=== PATIENT | male | born 1940 | race Caucasian/White ===

== ENCOUNTER 2017-07-27 09:33 | Inpatient (IN) | payer MEDICARE ==
[2017-07-27] MEDS ORDERED: ALBUTEROL NEBULIZED 2.5 MG/3 ML INHALATION STA (09:48)
[2017-07-27] MEDS ORDERED: methylPREDNISolone SOD SUCCI 125 MG/2 ML VIAL IV STA (09:48)
--- NOTE | 2017-07-27 09:51 | ED ---
General Adult HPI - General Chief complaint: Shortness of Breath Stated complaint: SOB Time Seen by Provider: 07/27/17 09:33 Source: patient, family, RN notes reviewed Mode of arrival: wheelchair Limitations: no limitations - History of Present Illness Initial comments: This is a 76-year-old male with a past medical history significant for congestive heart failure as well as COPD. Patient went to see Dr. Duarte today because his breathing is gotten considerably worse over the last few days and he was sent over from Dr. Garcia's office. Patient states she's had no fever chills. Patient states he has a chronic cough but no worse than normal. Patient states is no sputum production. Patient denies any chest pain or palpitations. Patient denies any abdominal pain patient denies nausea vomiting diarrhea. Patient denies headache patient denies numbness weakness. Patient denies lightheadedness or dizziness. Patient states the difficulty breathing definitely gets worse with exertion. Patient denies any increased edema to the legs. - Related Data Home Medications Medication Instructions Recorded Confirmed Albuterol Inhaler [Ventolin Hfa 1 - 2 puff INHALATION RT-Q4H PRN 07/27/17 Inhaler] Albuterol Nebulized [Ventolin 2.5 mg INHALATION RT-QID 07/27/17 07/27/17 Nebulized] Apixaban [Eliquis] 5 mg PO BID 07/27/17 07/27/17 Aspirin 81 mg PO DAILY 07/27/17 07/27/17 Atenolol [Tenormin] 25 mg PO DAILY 07/27/17 07/27/17 DULoxetine HCL [Cymbalta] 60 mg PO HS 07/27/17 07/27/17 Diltiazem HCl 15 mg PO Q8H 07/27/17 07/27/17 Fenofibrate Nanocrystallized 145 mg PO DAILY 07/27/17 07/27/17 [Tricor] Fluticasone/Vilanterol [Breo 1 puff INHALATION RT-DAILY 07/27/17 07/27/17 Ellipta 200-25 Mcg INH] Furosemide [Lasix] 20 mg PO DAILY 07/27/17 07/27/17 Gabapentin [Neurontin] 600 mg PO BID 07/27/17 07/27/17 Isosorbide Mononitrate ER [Imdur] 30 mg PO DAILY 07/27/17 07/27/17 Lisinopril [Zestril] 2.5 mg PO DAILY 07/27/17 07/27/17 Morphine Sulfate ER [Ms Contin 60 mg PO HS 07/27/17 07/27/17 60Mg] Morphine Sulfate Ir [Msir] 7.5 mg PO HS 07/27/17 07/27/17 Morphine Sulfate Ir [Msir] 7.5 mg PO TID PRN 07/27/17 07/27/17 Tiotropium [place] [Spiriva] 18 mcg INHALATION RT-DAILY 07/27/17 07/27/17 metFORMIN HCL [Glucophage] 1,000 mg PO BID 07/27/17 07/27/17 rOPINIRole HCL [Requip] 0.25 mg PO HS 07/27/17 07/27/17 sitaGLIPtin [Januvia] 50 mg PO DAILY 07/27/17 07/27/17 Allergies Allergy/AdvReac Type Severity Reaction Status Date / Time Penicillins Allergy Rash/Hives Verified 07/27/17 09:51 Review of Systems ROS Statement: Those systems with pertinent positive or pertinent negative responses have been documented in the HPI. ROS Other: All systems not noted in ROS Statement are negative. Past Medical History Past Medical History: Atrial Fibrillation, Heart Failure, COPD, Diabetes Mellitus, Hyperlipidemia, Hypertension, Myocardial Infarction (MS) Additional Past Medical History / Comment(s): PVD History of Any Multi-Drug Resistant Organisms: None Reported Past Surgical History: Hernia Repair, Joint Replacement, Orthopedic Surgery Additional Past Surgical History / Comment(s): stent in leg with bypass Past Psychological History: Anxiety Smoking Status: Current every day smoker Past Alcohol Use History: None Reported Past Drug Use History: None Reported General Exam - General Exam Comments Initial Comments: GENERAL: Patient is well-developed and well-nourished. Patient is nontoxic and well- hydrated and is in mild distress. ENT: Neck is soft and supple. No significant lymphadenopathy is noted. Oropharynx is clear. Moist mucous membranes. Neck has full range of motion without eliciting any pain. EYES: The sclera were anicteric and conjunctiva were pink and moist. Extraocular movements were intact and pupils were equal round and reactive to light. Eyelids were unremarkable. PULMONARY: Patient has diffuse wheezing and diminished breath sounds particularly in the left base. CARDIOVASCULAR: Patient is tachycardic ABDOMEN: Soft and nontender with normal bowel sounds. No palpable organomegaly was noted. There is no palpable pulsatile mass. SKIN: Skin is clear with no lesions or rashes and otherwise unremarkable. NEUROLOGIC: Patient is alert and oriented x3. Cranial nerves II through XII are grossly intact. Motor and sensory are also intact. Normal speech, volume and content. Symmetrical smile. MUSCULOSKELETAL: Normal extremities with adequate strength and full range of motion. Patient has 1+ edema bilaterally LYMPHATICS: No significant lymphadenopathy is noted PSYCHIATRIC: Normal psychiatric evaluation. Normal interpersonal interactions appears functionally intact in deals appropriately with others. No signs of depression. No signs of anxiety. Limitations: no limitations Course Vital Signs 07/27/17 07/27/17 07/27/17 09:35 09:59 10:15 Temperature 97.8 F Pulse Rate 110 H 101 H 105 H Respiratory 20 Rate Blood Pressure 133/87 O2 Sat by Pulse 93 L Oximetry 07/27/17 07/27/17 10:34 11:00 Temperature Pulse Rate 108 H 101 H Respiratory 20 Rate Blood Pressure 148/77 O2 Sat by Pulse 95 Oximetry Medical Decision Making - Medical Decision Making EKG shows atrial fibrillation at 90 bpm QRS is under 4 QT interval 352 QTC is 449. Patient has no ST segment elevation or depression. Chest x-ray shows no acute abnormality. Patient did look as though he might be a little bit fluid overloaded side did give the patient Lasix. Patient received 3 breathing treatments in the emergency department but would desat and continued to wheeze after the treatments. Patient also received Solu-Medrol. I spoke with Dr. Cullen he agreed to admit the patient I admitted the patient I wrote admitting orders I continued today albuterol and steroid on the floor. I also consult Dr. Garcia. - Lab Data Result diagrams: 07/27/17 10:02 07/27/17 10:02 Lab Results 07/27/17 07/27/17 07/27/17 Range/Units 10:02 10:02 10:02 WBC 9.3 (3.8-10.6) k/uL RBC 4.60 (4.30-5.90) m/uL Hgb 14.8 (13.0-17.5) gm/dL Hct 43.5 (39.0-53.0) % MCV 94.6 (80.0-100.0) fL MCH 32.1 (25.0-35.0) pg MCHC 33.9 (31.0-37.0) g/dL RDW 12.9 (11.5-15.5) % Plt Count 298 (150-450) k/uL Neutrophils % 84 % Lymphocytes % 8 % Monocytes % 5 % Eosinophils % 1 % Basophils % 1 % Neutrophils # 7.7 (1.3-7.7) k/uL Lymphocytes # 0.8 L (1.0-4.8) k/uL Monocytes # 0.5 (0-1.0) k/uL Eosinophils # 0.1 (0-0.7) k/uL Basophils # 0.1 (0-0.2) k/uL PT (9.0-12.0) sec INR (<1.2) APTT (22.0-30.0) sec Sodium 140 (137-145) mmol/L Potassium 4.7 (3.5-5.1) mmol/L Chloride 100 (98-107) mmol/L Carbon Dioxide 27 (22-30) mmol/L Anion Gap 13 mmol/L BUN 17 (9-20) mg/dL Creatinine 0.61 L (0.66-1.25) mg/dL Est GFR (CKD-EPI)AfAm >90 (>60 ml/min/1.73 sqM) Est GFR (CKD-EPI)NonAf >90 (>60 ml/min/1.73 sqM) Glucose 222 H (74-99) mg/dL Calcium 9.5 (8.4-10.2) mg/dL Magnesium 1.5 L (1.6-2.3) mg/dL Total Bilirubin 0.4 (0.2-1.3) mg/dL AST 18 (17-59) U/L ALT 24 (21-72) U/L Alkaline Phosphatase 63 (38-126) U/L Total Creatine Kinase 42 L (55-170) U/L CK-MB (CK-2) 2.4 (0.0-2.4) ng/mL CK-MB (CK-2) Rel Index 5.7 Troponin I <0.012 (0.000-0.034) ng/mL NT-Pro-B Natriuret Pep pg/mL Total Protein 6.5 (6.3-8.2) g/dL Albumin 4.0 (3.5-5.0) g/dL 07/27/17 07/27/17 Range/Units 10:02 10:02 WBC (3.8-10.6) k/uL RBC (4.30-5.90) m/uL Hgb (13.0-17.5) gm/dL Hct (39.0-53.0) % MCV (80.0-100.0) fL MCH (25.0-35.0) pg MCHC (31.0-37.0) g/dL RDW (11.5-15.5) % Plt Count (150-450) k/uL Neutrophils % % Lymphocytes % % Monocytes % % Eosinophils % % Basophils % % Neutrophils # (1.3-7.7) k/uL Lymphocytes # (1.0-4.8) k/uL Monocytes # (0-1.0) k/uL Eosinophils # (0-0.7) k/uL Basophils # (0-0.2) k/uL PT 10.4 (9.0-12.0) sec INR 1.1 (<1.2) APTT 24.7 (22.0-30.0) sec Sodium (137-145) mmol/L Potassium (3.5-5.1) mmol/L Chloride (98-107) mmol/L Carbon Dioxide (22-30) mmol/L Anion Gap mmol/L BUN (9-20) mg/dL Creatinine (0.66-1.25) mg/dL Est GFR (CKD-EPI)AfAm (>60 ml/min/1.73 sqM) Est GFR (CKD-EPI)NonAf (>60 ml/min/1.73 sqM) Glucose (74-99) mg/dL Calcium (8.4-10.2) mg/dL Magnesium (1.6-2.3) mg/dL Total Bilirubin (0.2-1.3) mg/dL AST (17-59) U/L ALT (21-72) U/L Alkaline Phosphatase (38-126) U/L Total Creatine Kinase (55-170) U/L CK-MB (CK-2) (0.0-2.4) ng/mL CK-MB (CK-2) Rel Index Troponin I (0.000-0.034) ng/mL NT-Pro-B Natriuret Pep 1250 pg/mL Total Protein (6.3-8.2) g/dL Albumin (3.5-5.0) g/dL Critical Care Time Critical Care Time: Yes Total Critical Care Time: 35 Disposition Clinical Impression: Acute exacerbation of chronic obstructive airways disease Disposition: ADMITTED IP TO THIS HOSP Referrals: Shama Tsang MD [Primary Care Provider] - 1-2 days Time of Disposition: 11:48
[2017-07-27 10:33] LABS: Basophils # (A) 0.1 k/uL (0-0.2); Basophils % (A) 1 %; Eosinophils # (A) 0.1 k/uL (0-0.7); Eosinophils % (A) 1 %; HCT 43.5 % (39.0-53.0); HGB 14.8 gm/dL (13.0-17.5); Lymphocytes # (A) 0.8 k/uL (1.0-4.8); Lymphocytes % (A) 8 %; MCH 32.1 pg (25.0-35.0); MCHC 33.9 g/dL (31.0-37.0); MCV 94.6 fL (80.0-100.0); Mean Platelet Volume 7.5; Monocytes # (A) 0.5 k/uL (0-1.0); Monocytes % (A) 5 %; Neutrophils # (A) 7.7 k/uL (1.3-7.7); Neutrophils % (A) 84 %; Platelet Count 298 k/uL (150-450); RDW 12.9 % (11.5-15.5); WBC 9.3 k/uL (3.8-10.6)
[2017-07-27 10:35] LABS: INR 1.1 (<1.2); Partial Thromboplastin Time 24.7 sec (22.0-30.0); Prothrombin Time 10.4 sec (9.0-12.0)
--- NOTE | 2017-07-27 10:36 | XR ---
EXAMINATION TYPE: XR chest 1V DATE OF EXAM: 07/27/2017 COMPARISON: NONE HISTORY: Increasing shortness of breath TECHNIQUE: Single AP portable frontal upright view of the chest is obtained. FINDINGS: There is reticular interstitial prominence without suspicious focal air space opacity, ple ural effusion, or pneumothorax seen. The cardiac silhouette size is mildly enlarged with atheroscler otic aorta. Metallic hardware from right shoulder surgery is partially imaged. IMPRESSION: Suspect chronic interstitial fibrosis, component of acute interstitial edema difficult t o exclude. Background mild cardiomegaly noted. No suspicious focal infiltrate is present.
[2017-07-27 10:40] LABS: ALT 24 U/L (21-72); AST 18 U/L (17-59); Alkaline Phosphatase 63 U/L (38-126); Anion Gap 13 mmol/L; Blood Urea Nitrogen 17 mg/dL (9-20); Calcium 9.5 mg/dL (8.4-10.2); Carbon Dioxide 27 mmol/L (22-30); Chloride 100 mmol/L (98-107); Glucose 222 mg/dL (74-99); Magnesium 1.5 mg/dL (1.6-2.3); Potassium 4.7 mmol/L (3.5-5.1); Sodium 140 mmol/L (137-145); Total Bilirubin 0.4 mg/dL (0.2-1.3); Total Protein 6.5 g/dL (6.3-8.2)
[2017-07-27 11:00] LABS: Creatine Kinase 42 U/L (55-170)
[2017-07-27 11:11] LABS: Creatine Kinase MB 2.4 ng/mL (0.0-2.4); Troponin I <0.012 ng/mL (0.000-0.034)
[2017-07-27] MEDS ORDERED: FUROSEMIDE 10 MG/ML 2 ML VIAL IV ONE (11:37)
[2017-07-27] MEDS ORDERED: IPRATROPIUM-ALBUTEROL 3 ML NEB INHALATION PRN (11:49)
[2017-07-27] MEDS: IPRATROPIUM-ALBUTEROL 3 ML NEB INHALATION SCH ×3 (13:22→21:25)
[2017-07-27] MEDS: methylPREDNISolone SOD SUCCI 125 MG/2 ML VIAL IV SCH ×3 (13:22→22:43)
[2017-07-27] MEDS ORDERED: MORPHINE SULFATE IR 15 MG TABLET PO PRN (14:37)
[2017-07-27] MEDS ORDERED: FUROSEMIDE 10 MG/ML 4 ML VIAL IV STA (14:37)
--- NOTE | 2017-07-27 15:23 | P.CNPUL ---
History of Present Illness Consult date: 07/27/17 Reason for consult: dyspnea, COPD History of present illness: A pleasant 76-year-old male patient with known history of COPD with a baseline FEV1 of 59% of predicted, was had multiple hospitalizations the past for COPD exacerbation. The patient was being seen by Dr. Grier today in the office. He was felt to have worsening shortness of breath and this has been progressively getting worse over the past week or so. He has also gained around 6 pounds over the past few weeks. For that reason he was admitted to the hospital for treatment of an acute COPD exacerbation. No chest pain. No pleurisy. No hemoptysis. The patient has been maintained on a combination of Breo ellipta and Spiriva on outpatient basis. He has had several hospitalizations last year at [facility] for the same. His current chest x-ray showing some mild congestion. No clear S3 disease or pneumonia. No edema in lower extremities. Review of Systems Constitutional: Reports daytime sleepiness, Reports fatigue Eyes: denies blurred vision, denies bulging eye, denies decreased vision Ears: deny: decreased hearing, ear discharge, earache Ears, nose, mouth and throat: Reports as per HPI Cardiovascular: Reports decreased exercise tolerance, Reports dyspnea on exertion, Reports shortness of breath Respiratory: Reports dyspnea, Reports wheezing Gastrointestinal: Denies abdominal pain, Denies diarrhea, Denies nausea, Denies vomiting Genitourinary: Reports as per HPI Musculoskeletal: Denies myalgias Musculoskeletal: absent: ankle pain, ankle stiffness, ankle swelling Integumentary: Denies pruritus, Denies rash Neurological: Reports weakness Psychiatric: Denies anxiety, Denies depression Endocrine: Denies fatigue, Denies weight change Hematologic/Lymphatic: Reports as per HPI Allergic/Immunologic: Reports as per HPI Past Medical History Past Medical History: Atrial Fibrillation, Heart Failure, COPD, Diabetes Mellitus, Hyperlipidemia, Hypertension, Myocardial Infarction (PR), Vascular Disorder Additional Past Medical History / Comment(s): COPD severe in nature, coronary artery disease with previous coronary stenting and previous myocardial infarction, [id number] diabetes mellitus type 2, peripheral neuropathy, peripheral vascular disease with previous stenting of the left lower extremity and previous vascular surgery in the right leg, frequent falls, previous history of sores in the lower extremity in the heels, chronic hypoxic respiratory failure maintained on oxygen at 2 L/m nasal cannula, restless leg syndrome, chronic back pain, abdominal wall hernia, bilateral cataracts, hyperlipidemia, hypertension, diabetes mellitus Last Myocardial Infarction Date:: unkn History of Any Multi-Drug Resistant Organisms: None Reported Past Surgical History: Hernia Repair, Joint Replacement, Orthopedic Surgery Additional Past Surgical History / Comment(s): Cardiac catheterization with coronary stenting, back surgery, appendectomy, hernia repair, left total hip replacement, right shoulder replacement, right rotator cuff repair, TURP, left lower extremity angioplasty and stenting for peripheral vascular disease, previous colonoscopies Past Anesthesia/Blood Transfusion Reactions: No Reported Reaction Smoking Status: Current every day smoker ([id number] smoking history and the patient is still smoking around half pack of cigarettes a day. No history of alcoholism. Most of IV drugs) - Past Family History Father Family Medical History: Myocardial Infarction (PR) Additional Family Medical History / Comment(s): Father of a PR at the age of 62 yrs. Mother Additional Family Medical History / Comment(s): Mother was a heavy smoker. Medications and Allergies Home Medications Medication Instructions Recorded Confirmed Type Albuterol Inhaler [Ventolin Hfa 1 - 2 puff INHALATION RT-Q4H PRN 07/27/17 History Inhaler] Albuterol Nebulized [Ventolin 2.5 mg INHALATION RT-QID 07/27/17 07/27/17 History Nebulized] Apixaban [Eliquis] 5 mg PO BID 07/27/17 07/27/17 History Aspirin 81 mg PO DAILY 07/27/17 07/27/17 History Atenolol [Tenormin] 25 mg PO DAILY 07/27/17 07/27/17 History DULoxetine HCL [Cymbalta] 60 mg PO HS 07/27/17 07/27/17 History Diltiazem HCl 15 mg PO Q8H 07/27/17 07/27/17 History Fenofibrate Nanocrystallized 145 mg PO DAILY 07/27/17 07/27/17 History [Tricor] Fluticasone/Vilanterol [Breo 1 puff INHALATION RT-DAILY 07/27/17 07/27/17 History Ellipta 200-25 Mcg INH] Furosemide [Lasix] 20 mg PO DAILY 07/27/17 07/27/17 History Gabapentin [Neurontin] 600 mg PO BID 07/27/17 07/27/17 History Isosorbide Mononitrate ER [Imdur] 30 mg PO DAILY 07/27/17 07/27/17 History Lisinopril [Zestril] 2.5 mg PO DAILY 07/27/17 07/27/17 History Morphine Sulfate ER [Ms Contin 60 mg PO HS 07/27/17 07/27/17 History 60Mg] Morphine Sulfate Ir [Msir] 7.5 mg PO HS 07/27/17 07/27/17 History Morphine Sulfate Ir [Msir] 7.5 mg PO TID PRN 07/27/17 07/27/17 History Tiotropium [place] [Spiriva] 18 mcg INHALATION RT-DAILY 07/27/17 07/27/17 History metFORMIN HCL [Glucophage] 1,000 mg PO BID 07/27/17 07/27/17 History rOPINIRole HCL [Requip] 0.25 mg PO HS 07/27/17 07/27/17 History sitaGLIPtin [Januvia] 50 mg PO DAILY 07/27/17 07/27/17 History Allergies Allergy/AdvReac Type Severity Reaction Status Date / Time Penicillins Allergy Rash/Hives Verified 07/27/17 09:51 Physical Exam Vitals: Vital Signs Temp Pulse Pulse Resp BP BP Pulse Ox 07/27/17 13:10 98.0 F 75 16 107/68 92 L 07/27/17 11:57 83 18 120/63 93 L 07/27/17 11:00 101 H 20 148/77 95 07/27/17 10:34 108 H 07/27/17 10:15 105 H 07/27/17 09:59 101 H 07/27/17 09:35 97.8 F 110 H 20 133/87 93 L Intake and Output 07/27/17 07/27/17 07/27/17 06:59 14:59 22:59 Output Total 650 Balance -650 Output: Urine 650 Other: Weight 107.048 kg Obese, comfortable likely distress Head exam was generally normal. There was no scleral icterus or corneal arcus. Mucous membranes were moist. Neck was supple and without jugular venous distension, thyromegaly, or carotid bruits. Carotids were easily palpable bilaterally. There was no adenopathy. The patient has significant crowding of the posterior oropharynx and the patient is a Mallampati class IV Lung sounds are diminished bilaterally along with scattered expiratory wheezes and diffuse expiratory wheezes throughout the lung kraft bilaterally Cardiac exam revealed the PMI to be normally situated and sized. The rhythm was regular and no extrasystoles were noted during several minutes of auscultation. The first and second heart sounds were normal and physiologic splitting of the second heart sound was noted. There were no murmurs, rubs, clicks, or gallops. Abdominal exam revealed normal bowel sounds. The abdomen was soft, non-tender, and without masses, organomegaly, or appreciable enlargement of the abdominal aorta. Overall the patient is obese and there is no organomegaly appreciated Examination of the extremities revealed easily palpable radial, femoral and pedal pulses. There was no cyanosis, clubbing or edema. There are changes related to peripheral neuropathy. No open wounds or sores Examination of the skin revealed no evidence of significant rashes, suspicious appearing nevi or other concerning lesions. Neurologically the patient is awake and alert and there is no focal neurological deficit Psychiatrically the patient has normal mood and affect Results - Laboratory Findings CBC and BMP: 07/27/17 10:02 07/27/17 10:02 PT/INR, D-dimer PT 10.4 sec (9.0-12.0) 07/27/17 10:02 INR 1.1 (<1.2) 07/27/17 10:02 Abnormal lab findings: Abnormal Labs 07/27/17 07/27/17 07/27/17 10:02 10:02 10:02 Lymphocytes # 0.8 L Creatinine 0.61 L Glucose 222 H Magnesium 1.5 L Total Creatine Kinase 42 L - Diagnostic Findings Chest x-ray: image reviewed Assessment and Plan Plan: Assessment 1 acute COPD exacerbation with secondary shortness of breath. Cannot exclude the possibility of an underlying CHF contributing to shortness of breath 2 moderate to severe COPD with a baseline FEV1 of 59% of predicted 3 obesity with a BMI of 32 4 suspected obstructive sleep apnea with poor sleep quality and poor ability to maintain sleep and frequent nocturnal arousals and chronic hypersomnia 5 peripheral neuropathy 6 peripheral vascular disease 7 hypertension 8 hyperlipidemia 9 diabetes mellitus Plan Continue DuoNeb nebulized treatments around the clock. IV Lasix 40 mg IV push 1 and resume oral Lasix 20 mg on a daily basis. IV Solu-Medrol. Monitor blood sugar and use insulin if needed in the form of a drip should the blood sugars remain above 300. Review the chest x-ray. Smoking cessation counseling. We' ll continue to follow. Outpatient sleep study once the patient is fully recovered as the patient has a high suspicion for an underlying obstructive sleep apnea syndrome.
[2017-07-27] MEDS: ATENOLOL 25 MG TAB PO SCH (15:59)
[2017-07-27] MEDS: DILTIAZEM ORAL 30 MG TAB PO SCH ×2 (16:00→22:50)
[2017-07-27] MEDS: FENOFIBRATE 160 MG TAB PO SCH (16:00)
[2017-07-27 17:28] LABS: Glucose,Whole Blood 272 mg/dL (75-99)
--- NOTE | 2017-07-27 17:35 | P.HPIM ---
History of Present Illness This is a pleasant 76 years old male with past medical history of A. fib, CHF, COPD oxygen dependent at home, DM, hyperlipidemia, hypertension, PVD, status post stent, peripheral neuropathy who presents to his doctor office with dyspnea is Dr. Grier send him to the emergency room for COPD exacerbation Patient complaining of from cough and yellowish phlegm of 2 weeks duration, shortness of breath was progressively worsening over several weeks Patient denies dizziness or chest pain or leg pain, he denies Wilson I nocturnal dyspnea Review of Systems 14 point system review were negative except was mentioned in HPI Past Medical History Past Medical History: Atrial Fibrillation, Heart Failure, COPD, Diabetes Mellitus, Hyperlipidemia, Hypertension, Myocardial Infarction (DC), Vascular Disorder Additional Past Medical History / Comment(s): COPD severe in nature, coronary artery disease with previous coronary stenting and previous myocardial infarction, [id number] diabetes mellitus type 2, peripheral neuropathy, peripheral vascular disease with previous stenting of the left lower extremity and previous vascular surgery in the right leg, frequent falls, previous history of sores in the lower extremity in the heels, chronic hypoxic respiratory failure maintained on oxygen at 2 L/m nasal cannula, restless leg syndrome, chronic back pain, abdominal wall hernia, bilateral cataracts, hyperlipidemia, hypertension, diabetes mellitus Last Myocardial Infarction Date:: unkn History of Any Multi-Drug Resistant Organisms: None Reported Past Surgical History: Hernia Repair, Joint Replacement, Orthopedic Surgery Additional Past Surgical History / Comment(s): Cardiac catheterization with coronary stenting, back surgery, appendectomy, hernia repair, left total hip replacement, right shoulder replacement, right rotator cuff repair, TURP, left lower extremity angioplasty and stenting for peripheral vascular disease, previous colonoscopies Past Anesthesia/Blood Transfusion Reactions: No Reported Reaction Smoking Status: Current every day smoker ([id number] smoking history and the patient is still smoking around half pack of cigarettes a day. No history of alcoholism. Most of IV drugs) - Past Family History Father Family Medical History: Myocardial Infarction (DC) Additional Family Medical History / Comment(s): Father of a DC at the age of 62 yrs. Mother Additional Family Medical History / Comment(s): Mother was a heavy smoker. Medications and Allergies Home Medications Medication Instructions Recorded Confirmed Type Albuterol Inhaler [Ventolin Hfa 1 - 2 puff INHALATION RT-Q4H PRN 07/27/17 History Inhaler] Albuterol Nebulized [Ventolin 2.5 mg INHALATION RT-QID 07/27/17 07/27/17 History Nebulized] Apixaban [Eliquis] 5 mg PO BID 07/27/17 07/27/17 History Aspirin 81 mg PO DAILY 07/27/17 07/27/17 History Atenolol [Tenormin] 25 mg PO DAILY 07/27/17 07/27/17 History DULoxetine HCL [Cymbalta] 60 mg PO HS 07/27/17 07/27/17 History Diltiazem HCl 15 mg PO Q8H 07/27/17 07/27/17 History Fenofibrate Nanocrystallized 145 mg PO DAILY 07/27/17 07/27/17 History [Tricor] Fluticasone/Vilanterol [Breo 1 puff INHALATION RT-DAILY 07/27/17 07/27/17 History Ellipta 200-25 Mcg INH] Furosemide [Lasix] 20 mg PO DAILY 07/27/17 07/27/17 History Gabapentin [Neurontin] 600 mg PO BID 07/27/17 07/27/17 History Isosorbide Mononitrate ER [Imdur] 30 mg PO DAILY 07/27/17 07/27/17 History Lisinopril [Zestril] 2.5 mg PO DAILY 07/27/17 07/27/17 History Morphine Sulfate ER [Ms Contin 60 mg PO HS 07/27/17 07/27/17 History 60Mg] Morphine Sulfate Ir [Msir] 7.5 mg PO HS 07/27/17 07/27/17 History Morphine Sulfate Ir [Msir] 7.5 mg PO TID PRN 07/27/17 07/27/17 History Tiotropium [place] [Spiriva] 18 mcg INHALATION RT-DAILY 07/27/17 07/27/17 History metFORMIN HCL [Glucophage] 1,000 mg PO BID 07/27/17 07/27/17 History rOPINIRole HCL [Requip] 0.25 mg PO HS 07/27/17 07/27/17 History sitaGLIPtin [Januvia] 50 mg PO DAILY 07/27/17 07/27/17 History Allergies Allergy/AdvReac Type Severity Reaction Status Date / Time Penicillins Allergy Rash/Hives Verified 07/27/17 09:51 Physical Exam Vitals: Vital Signs Temp Pulse Pulse Resp BP BP Pulse Ox 07/27/17 17:09 104 H 07/27/17 13:10 98.0 F 75 16 107/68 92 L 07/27/17 11:57 83 18 120/63 93 L 07/27/17 11:00 101 H 20 148/77 95 07/27/17 10:34 108 H 07/27/17 10:15 105 H 07/27/17 09:59 101 H 07/27/17 09:35 97.8 F 110 H 20 133/87 93 L Intake and Output 07/27/17 07/27/17 07/27/17 06:59 14:59 22:59 Output Total 650 Balance -650 Output: Urine 650 Other: Weight 107.048 kg Constitutional: No acute distress, conversant, pleasant Eyes: Anicteric sclerae, moist conjunctiva, no lid-lag PERRLA ENMT: NC/AT Oropharynx clear, no erythema, exudates Neck: Supple, FROM, no masses, or JVD No carotid bruits No thyromegaly -Lungs: Clear to auscultation, bilateral scattered wheezing Clear to percussion Normal respiratory effort, no accessory muscle use Cardiovascular: Heart regular in rate and rhythm, No murmurs, gallops, or rubs No peripheral edema Abdominal: Soft Nontender, no guarding, rebound or rigidity Abdomen moving with respiration Normoactive bowel sounds No hepatomegaly, No splenomegaly No palpable mass No abdominal wall hernia noted Skin: Normal temperature, tone, texture, turgor No induration No subcutaneous nodules No rash, lesions No ulcers Extremities: No digital cyanosis No clubbing Pedal pulses intact and symmetrical Radial pulses intact and symmetrical Normal gait and station No calf tenderness Psychiatric: Alert and oriented to person, place and time Appropriate affect Intact judgement Neuro: Muscles Strength 5/5 in all 4 extremities Sensation to light touch grossly present throughout Cranial nerves II-XII grossly intact No focal sensory deficits Results CBC & Chem 7: 07/27/17 10:02 07/27/17 10:02 Labs: Abnormal Lab Results - Last 24 Hours (Table) 07/27/17 07/27/17 07/27/17 Range/Units 10:02 10:02 10:02 Lymphocytes # 0.8 L (1.0-4.8) k/uL Creatinine 0.61 L (0.66-1.25) mg/dL Glucose 222 H (74-99) mg/dL Magnesium 1.5 L (1.6-2.3) mg/dL Total Creatine Kinase 42 L (55-170) U/L Thrombosis Risk Factor Assmnt - Choose All That Apply Any of the Below Risk Factors Present?: Yes Each Factor Represents 1 point: Abnormal pulmonary function (COPD), Obesity ( BMI >25) Other Risk Factors: Yes Each Risk Factor Represents 3 Points: Age 75 years or older Other congenital or acquired thrombophilia - If yes, enter type in comment: No Thrombosis Risk Factor Assessment Total Risk Factor Score: 5 Thrombosis Risk Factor Assessment Level: High Risk Assessment and Plan Plan: -COPD exacerbation, pulmonary consultation is appreciated, continue with steroids, breathing treatments and oxygen, and antibiotics patient also got 1 dose of extra Lasix -CHF, continue with Lasix, check proBNP -DM continue with Januvia, metformin, ISS -Hypertension continue with atenolol 25 mg daily and Cardizem 15 mg every 8 hours plus lisinopril 2.5 mg daily -A. fib, continue with the Eliquis, aspirin, and atenolol -Diabetic neuropathy continue with gabapentin
[2017-07-27] MEDS: metFORMIN 500 MG TAB PO SCH (18:04)
[2017-07-27 20:06] LABS: Glucose,Whole Blood 334 mg/dL (75-99)
[2017-07-27] MEDS: DULoxetine HCL 60 MG CAPSULE.DR PO SCH (21:06)
[2017-07-27] MEDS: GABAPENTIN 300 MG CAP PO SCH (21:06)
[2017-07-27] MEDS: MORPHINE SULFATE ER 60 MG TABLET PO SCH (21:06)
[2017-07-27] MEDS: APIXABAN 5 MG TAB PO SCH (21:06)
[2017-07-27] MEDS: DOXYCYCLINE MONOHYDRATE 100 MG CAPSULE PO SCH (21:08)
[2017-07-27] MEDS: MORPHINE SULFATE IR 15 MG TABLET PO SCH (21:08)
[2017-07-27] MEDS: INSULIN ASPART 100 UNIT/ML 1 ML 10 ML VIAL SQ SCH (22:37)
[2017-07-28] MEDS: IPRATROPIUM-ALBUTEROL 3 ML NEB INHALATION SCH ×6 (00:58→19:29)
[2017-07-28] MEDS: methylPREDNISolone SOD SUCCI 125 MG/2 ML VIAL IV SCH ×4 (04:58→23:29)
[2017-07-28 07:02] LABS: Glucose,Whole Blood 312 mg/dL (75-99)
[2017-07-28 07:48] LABS: Basophils % (A) 0 %; Eosinophils % (A) 0 %; HCT 43.7 % (39.0-53.0); HGB 14.5 gm/dL (13.0-17.5); Lymphocytes # (A) 0.6 k/uL (1.0-4.8); Lymphocytes % (A) 5 %; MCH 31.7 pg (25.0-35.0); MCHC 33.3 g/dL (31.0-37.0); MCV 95.2 fL (80.0-100.0); Mean Platelet Volume 8.1; Monocytes # (A) 0.2 k/uL (0-1.0); Monocytes % (A) 2 %; Neutrophils # (A) 10.7 k/uL (1.3-7.7); Neutrophils % (A) 93 %; Platelet Count 339 k/uL (150-450); RBC 4.59 m/uL (4.30-5.90); RDW 12.8 % (11.5-15.5); WBC 11.5 k/uL (3.8-10.6)
[2017-07-28] MEDS: INSULIN ASPART 100 UNIT/ML 1 ML 10 ML VIAL SQ SCH ×4 (07:52→20:51)
[2017-07-28] MEDS: ATENOLOL 25 MG TAB PO SCH (07:53)
[2017-07-28] MEDS: metFORMIN 500 MG TAB PO SCH ×2 (07:53→17:25)
[2017-07-28] MEDS: ISOSORBIDE MONONITRATE ER 30 MG TAB.ER.24H PO SCH (07:53)
[2017-07-28] MEDS: ASPIRIN 81 MG PO SCH (07:53)
[2017-07-28] MEDS: GABAPENTIN 300 MG CAP PO SCH ×2 (07:53→20:51)
[2017-07-28] MEDS: FUROSEMIDE 20 MG TAB PO SCH (07:53)
[2017-07-28] MEDS: APIXABAN 5 MG TAB PO SCH ×2 (07:53→20:51)
[2017-07-28] MEDS: DOXYCYCLINE MONOHYDRATE 100 MG CAPSULE PO SCH ×2 (07:53→20:51)
[2017-07-28] MEDS: FENOFIBRATE 160 MG TAB PO SCH (07:53)
[2017-07-28] MEDS: LINAGLIPTIN 5 MG TABLET PO SCH (07:54)
[2017-07-28] MEDS: LISINOPRIL 2.5 MG TAB PO SCH (07:54)
[2017-07-28] MEDS: DILTIAZEM ORAL 30 MG TAB PO SCH ×3 (07:54→23:31)
[2017-07-28 08:13] LABS: Anion Gap 16 mmol/L; Blood Urea Nitrogen 30 mg/dL (9-20); Calcium 9.5 mg/dL (8.4-10.2); Carbon Dioxide 29 mmol/L (22-30); Chloride 94 mmol/L (98-107); Glucose 261 mg/dL (74-99); Potassium 4.8 mmol/L (3.5-5.1); Sodium 139 mmol/L (137-145)
[2017-07-28 11:08] LABS: Glucose,Whole Blood 238 mg/dL (75-99)
--- NOTE | 2017-07-28 13:17 | CDI ---
Last Revision, February 2017 Documentation Clarification Form Date: 07/28/17 1312 From: Emily Harrell RN, CCDS Admit Date: 07/27/2017 11:49:00 AM Patient Name: Steffen Ruth Visit Number: [id number] ATTENTION: The Clinical Documentation Specialists (CDI) and [facility] Coding Staff appreciate your assistance in clarifying documentation. Please respond to the clarification below the line at the bottom and electronically sign. The CDI & [facility] Coding staff will review the response and follow-up if needed. Please note: Queries are made part of the Legal Health Record. If you have any questions, please contact the author of this message via ITS. Dr. Mayes E Sheet History/Risk Factors: A-Fib, COPD with Home O2 dependence, DM, HTN Clinical Indicators: VS/Pulse OX: Temp 97.8, hr 110, RR 20, B/P 133/87, spo2 93% 3l NC BNP: 1250 / 2210 Echocardiogram Results: no old echo available, an there is not one ordered Chest X Ray: "chronic interstitial fibrosis, component of acute interstitial edema difficult to exclude. Background mild cardiomegaly noted." Treatment: Lasix 20 mg IVP x1 followed by Lasix 40 ivp x1, followed by Lasix 20 mg PO QD In your professional opinion, can you please clarify the acuity and type of CHF if known? Systolic Heart Failure: Acute Chronic Acute on Chronic Diastolic Heart Failure: Acute Chronic Acute on Chronic Systolic & Diastolic Heart Failure: Acute Chronic Acute on Chronic Heart Failure Unable to Determine Other, please specify Please continue to document in your progress notes and discharge summary in order to capture severity of illness and risk of mortality. Include clinical findings that support your diagnosis. chronic systolic CHF MTDD
--- NOTE | 2017-07-28 14:53 | P.PN ---
<Nicky Lopez M - Last Filed: 07/28/17 14:42> Subjective Progress Note Date: 07/28/17 Principal diagnosis: Acute COPD exacerbation with secondary shortness of breath and acute congestive heart failure, unspecified A pleasant 76-year-old male patient with known history of COPD with a baseline FEV1 of 59% of predicted, was had multiple hospitalizations the past for COPD exacerbation. The patient was being seen by Dr. Grier today in the office. He was felt to have worsening shortness of breath and this has been progressively getting worse over the past week or so. He has also gained around 6 pounds over the past few weeks. For that reason he was admitted to the hospital for treatment of an acute COPD exacerbation. No chest pain. No pleurisy. No hemoptysis. The patient has been maintained on a combination of Breo ellipta and Spiriva on outpatient basis. He has had several hospitalizations last year at [facility] for the same. His current chest x-ray showing some mild congestion. No clear S3 disease or pneumonia. No edema in lower extremities. On 07/28/2017 patient seen in follow-up. He is breathing easier today, currently on 2 L per nasal cannula with O2 sat at 92%. Vital signs are stable, patient is slightly tachycardic at times with a heart rate up to 112 BPM. Yesterday patient was given a dose of IV Lasix, and he is in -1800 mL fluid balance over the last 24 hours, and his weight is down by 1 kg next 24 hours. Patient states he was able to get up and walk, and tolerated reasonably well. Lung sounds are positive for a few scattered wheezes, no rales, no rhonchi noted on today's exam. Patient is improving, and has responded well to IV steroids, IV diuretics, nebulized bronchodilators and empiric antibiotics. Increase activity as tolerated, wean FiO2. We will obtain 2-D echocardiogram to assess left ventricle systolic function. Objective - Vital Signs Vital signs: Vital Signs Temp 97.3 F L 07/28/17 07:28 Pulse 110 H 07/28/17 11:27 Resp 18 07/28/17 11:27 BP 119/62 07/28/17 07:28 Pulse Ox 92 L 07/28/17 11:17 Intake & Output 07/27/17 07/28/17 07/28/17 18:59 06:59 18:59 Output Total 2450 Balance -2450 Weight 107.048 kg 106 kg Output: Urine 2450 Other: # Voids 1 - Exam Obese, comfortable likely distress Head exam was generally normal. There was no scleral icterus or corneal arcus. Mucous membranes were moist. Neck was supple and without jugular venous distension, thyromegaly, or carotid bruits. Carotids were easily palpable bilaterally. There was no adenopathy. The patient has significant crowding of the posterior oropharynx and the patient is a Mallampati class IV Lung sounds are diminished bilaterally along with scattered expiratory wheezes, overall improved from yesterday's exam Cardiac exam revealed the PMI to be normally situated and sized. The rhythm was regular and no extrasystoles were noted during several minutes of auscultation. The first and second heart sounds were normal and physiologic splitting of the second heart sound was noted. There were no murmurs, rubs, clicks, or gallops. Abdominal exam revealed normal bowel sounds. The abdomen was soft, non-tender, and without masses, organomegaly, or appreciable enlargement of the abdominal aorta. Overall the patient is obese and there is no organomegaly appreciated Examination of the extremities revealed easily palpable radial, femoral and pedal pulses. There was no cyanosis, clubbing or edema. There are changes related to peripheral neuropathy. No open wounds or sores Examination of the skin revealed no evidence of significant rashes, suspicious appearing nevi or other concerning lesions. Neurologically the patient is awake and alert and there is no focal neurological deficit Psychiatrically the patient has normal mood and affect - Labs CBC & Chem 7: 07/28/17 07:19 07/28/17 07:19 Labs: Abnormal Lab Results - Last 24 Hours (Table) 07/27/17 07/27/17 07/28/17 Range/Units 17:27 20:04 07:01 WBC (3.8-10.6) k/uL Neutrophils # (1.3-7.7) k/uL Lymphocytes # (1.0-4.8) k/uL Chloride (98-107) mmol/L BUN (9-20) mg/dL Glucose (74-99) mg/dL POC Glucose (mg/dL) 272 H 334 H 312 H (75-99) mg/dL 07/28/17 07/28/17 07/28/17 Range/Units 07:19 07:19 11:07 WBC 11.5 H (3.8-10.6) k/uL Neutrophils # 10.7 H (1.3-7.7) k/uL Lymphocytes # 0.6 L (1.0-4.8) k/uL Chloride 94 L (98-107) mmol/L BUN 30 H (9-20) mg/dL Glucose 261 H (74-99) mg/dL POC Glucose (mg/dL) 238 H (75-99) mg/dL Microbiology - Last 24 Hours (Table) 07/27/17 10:02 Blood Culture - Preliminary Blood No Growth after 24 hours Assessment and Plan Plan: Assessment: 1 acute COPD exacerbation with secondary shortness of breath. Cannot exclude the possibility of an underlying CHF contributing to shortness of breath 2 moderate to severe COPD with a baseline FEV1 of 59% of predicted 3 obesity with a BMI of 32 4 suspected obstructive sleep apnea with poor sleep quality and poor ability to maintain sleep and frequent nocturnal arousals and chronic hypersomnia 5 peripheral neuropathy 6 peripheral vascular disease 7 hypertension 8 hyperlipidemia 9 diabetes mellitus Plan: Continue current medical treatment, patient is improving, he has responded well to IV diuretics, IV steroids, nebulized bronchodilators and empiric antibiotics. We'll obtain a 2-D echocardiogram to assess left ventricular systolic function. Increase activity as tolerated. Clinically patient is improving. I performed a history & physical examination of the patient and discussed their management with my nurse practitioner, Nicky Lopez. I reviewed the nurse practitioner's note and agree with the documented findings and plan of care. Lung sounds are some scattered end expiratory wheezing. The findings and the impression was discussed with the patient. I attest to the documentation by the nurse practitioner. Time with Patient: Less than 30 <Shayna Beasley - Last Filed: 07/28/17 18:07> Objective - Vital Signs Vital signs: Vital Signs Temp 97.5 F L 07/28/17 14:37 Pulse 100 07/28/17 15:38 Resp 16 07/28/17 14:37 BP 104/64 07/28/17 14:37 Pulse Ox 92 L 07/28/17 14:37 Intake & Output 07/27/17 07/28/17 07/28/17 18:59 06:59 18:59 Output Total 2450 Balance -2450 Weight 107.048 kg 106 kg Output: Urine 2450 Other: # Voids 1 3 - Labs CBC & Chem 7: 07/28/17 07:19 07/28/17 07:19 Labs: Abnormal Lab Results - Last 24 Hours (Table) 07/27/17 07/28/17 07/28/17 Range/Units 20:04 07:01 07:19 WBC 11.5 H (3.8-10.6) k/uL Neutrophils # 10.7 H (1.3-7.7) k/uL Lymphocytes # 0.6 L (1.0-4.8) k/uL Chloride (98-107) mmol/L BUN (9-20) mg/dL Glucose (74-99) mg/dL POC Glucose (mg/dL) 334 H 312 H (75-99) mg/dL 07/28/17 07/28/17 07/28/17 Range/Units 07:19 11:07 17:27 WBC (3.8-10.6) k/uL Neutrophils # (1.3-7.7) k/uL Lymphocytes # (1.0-4.8) k/uL Chloride 94 L (98-107) mmol/L BUN 30 H (9-20) mg/dL Glucose 261 H (74-99) mg/dL POC Glucose (mg/dL) 238 H 349 H (75-99) mg/dL Microbiology - Last 24 Hours (Table) 07/27/17 10:02 Blood Culture - Preliminary Blood No Growth after 24 hours Assessment and Plan Plan: The patient is improving. The patient is less short of breath compared to yesterday. The patient got diuresed yesterday. The results of the echocardiogram is still pending. Continue bronchodilators. Continue steroids. We'll follow.
--- NOTE | 2017-07-28 17:16 | P.PN ---
Subjective Patient is seen and examined by me at bedside Known new complaints No CP, no change in urine bowel habits, no fever Objective - Vital Signs Vital signs: Vital Signs Temp 97.5 F L 07/28/17 14:37 Pulse 100 07/28/17 15:38 Resp 16 07/28/17 14:37 BP 104/64 07/28/17 14:37 Pulse Ox 92 L 07/28/17 14:37 Intake & Output 07/27/17 07/28/17 07/28/17 18:59 06:59 18:59 Output Total 2450 Balance -2450 Weight 107.048 kg 106 kg Output: Urine 2450 Other: # Voids 1 3 - Exam Constitutional: No acute distress, conversant, pleasant Eyes: Anicteric sclerae, moist conjunctiva, no lid-lag PERRLA ENMT: NC/AT Oropharynx clear, no erythema, exudates Neck: Supple, FROM, no masses, or JVD No carotid bruits No thyromegaly Lungs: Clear to auscultation Clear to percussion Normal respiratory effort, no accessory muscle use Cardiovascular: Heart regular in rate and rhythm, No murmurs, gallops, or rubs No peripheral edema Abdominal: Soft Nontender, no guarding, rebound or rigidity Abdomen moving with respiration Normoactive bowel sounds No hepatomegaly, No splenomegaly No palpable mass No abdominal wall hernia noted Skin: Normal temperature, tone, texture, turgor No induration No subcutaneous nodules No rash, lesions No ulcers Extremities: No digital cyanosis No clubbing Pedal pulses intact and symmetrical Radial pulses intact and symmetrical Normal gait and station No calf tenderness Psychiatric: Alert and oriented to person, place and time Appropriate affect Intact judgement Neuro: Muscles Strength 5/5 in all 4 extremities Sensation to light touch grossly present throughout Cranial nerves II-XII grossly intact No focal sensory deficits - Labs CBC & Chem 7: 07/28/17 07:19 07/28/17 07:19 Labs: Abnormal Lab Results - Last 24 Hours (Table) 07/27/17 07/27/17 07/28/17 Range/Units 17:27 20:04 07:01 WBC (3.8-10.6) k/uL Neutrophils # (1.3-7.7) k/uL Lymphocytes # (1.0-4.8) k/uL Chloride (98-107) mmol/L BUN (9-20) mg/dL Glucose (74-99) mg/dL POC Glucose (mg/dL) 272 H 334 H 312 H (75-99) mg/dL 07/28/17 07/28/17 07/28/17 Range/Units 07:19 07:19 11:07 WBC 11.5 H (3.8-10.6) k/uL Neutrophils # 10.7 H (1.3-7.7) k/uL Lymphocytes # 0.6 L (1.0-4.8) k/uL Chloride 94 L (98-107) mmol/L BUN 30 H (9-20) mg/dL Glucose 261 H (74-99) mg/dL POC Glucose (mg/dL) 238 H (75-99) mg/dL Microbiology - Last 24 Hours (Table) 07/27/17 10:02 Blood Culture - Preliminary Blood No Growth after 24 hours Assessment and Plan Plan: -COPD exacerbation, pulmonary consultation is appreciated, continue with steroids, breathing treatments and oxygen, and antibiotics patient also got 1 dose of extra Lasix -CHF, continue with Lasix, check proBNP -DM continue with Januvia, metformin, ISS -Hypertension continue with atenolol 25 mg daily and Cardizem 15 mg every 8 hours plus lisinopril 2.5 mg daily -A. fib, continue with the Eliquis, aspirin, and atenolol -Diabetic neuropathy continue with gabapentin
[2017-07-28 17:28] LABS: Glucose,Whole Blood 349 mg/dL (75-99)
[2017-07-28 19:53] LABS: Glucose,Whole Blood 261 mg/dL (75-99)
[2017-07-28] MEDS: MORPHINE SULFATE IR 15 MG TABLET PO SCH (20:50)
[2017-07-28] MEDS: MORPHINE SULFATE ER 60 MG TABLET PO SCH (20:51)
[2017-07-28] MEDS: DULoxetine HCL 60 MG CAPSULE.DR PO SCH (20:51)
[2017-07-29] MEDS: IPRATROPIUM-ALBUTEROL 3 ML NEB INHALATION SCH ×4 (00:27→12:24)
[2017-07-29] MEDS: methylPREDNISolone SOD SUCCI 125 MG/2 ML VIAL IV SCH ×2 (06:22→11:12)
[2017-07-29 07:00] LABS: Glucose,Whole Blood 262 mg/dL (75-99)
[2017-07-29 07:49] VITALS: BP 137/93; RESP 20; TEMP 97.8
[2017-07-29] MEDS: metFORMIN 500 MG TAB PO SCH (08:05)
[2017-07-29] MEDS: INSULIN ASPART 100 UNIT/ML 1 ML 10 ML VIAL SQ SCH ×2 (08:05→12:48)
[2017-07-29 09:14] LABS: Basophils % (A) 0 %; Eosinophils % (A) 0 %; HCT 44.4 % (39.0-53.0); HGB 14.4 gm/dL (13.0-17.5); Lymphocytes # (A) 0.6 k/uL (1.0-4.8); Lymphocytes % (A) 4 %; MCH 31.1 pg (25.0-35.0); MCHC 32.3 g/dL (31.0-37.0); MCV 96.2 fL (80.0-100.0); Mean Platelet Volume 8.4; Monocytes # (A) 0.5 k/uL (0-1.0); Monocytes % (A) 3 %; Neutrophils # (A) 13.6 k/uL (1.3-7.7); Neutrophils % (A) 93 %; Platelet Count 318 k/uL (150-450); RBC 4.61 m/uL (4.30-5.90); RDW 12.9 % (11.5-15.5); WBC 14.7 k/uL (3.8-10.6)
[2017-07-29] MEDS: LISINOPRIL 2.5 MG TAB PO SCH (09:21)
[2017-07-29] MEDS: GABAPENTIN 300 MG CAP PO SCH (09:21)
[2017-07-29] MEDS: LINAGLIPTIN 5 MG TABLET PO SCH (09:21)
[2017-07-29] MEDS: FUROSEMIDE 20 MG TAB PO SCH (09:22)
[2017-07-29] MEDS: APIXABAN 5 MG TAB PO SCH (09:22)
[2017-07-29] MEDS: DILTIAZEM ORAL 30 MG TAB PO SCH (09:22)
[2017-07-29] MEDS: FENOFIBRATE 160 MG TAB PO SCH (09:23)
[2017-07-29] MEDS: DOXYCYCLINE MONOHYDRATE 100 MG CAPSULE PO SCH (09:23)
[2017-07-29] MEDS: ASPIRIN 81 MG PO SCH (09:23)
[2017-07-29] MEDS: ATENOLOL 25 MG TAB PO SCH (09:23)
[2017-07-29 09:33] LABS: Anion Gap 16 mmol/L; Blood Urea Nitrogen 33 mg/dL (9-20); Calcium 9.7 mg/dL (8.4-10.2); Carbon Dioxide 28 mmol/L (22-30); Chloride 91 mmol/L (98-107); Glucose 275 mg/dL (74-99); Sodium 135 mmol/L (137-145)
[2017-07-29 11:02] LABS: Glucose,Whole Blood 326 mg/dL (75-99)
[2017-07-29] MEDS: ISOSORBIDE MONONITRATE ER 30 MG TAB.ER.24H PO SCH (11:12)
--- NOTE | 2017-07-29 11:17 | ECHOF ---
Referral Reason:shortness of breath, CHF MEASUREMENTS -------- HEIGHT: 182.9 cm WEIGHT: 105.7 kg BP: 119/62 RVIDd: 3.1 cm (< 3.3) IVSd: 1.2 cm (0.6 - 1.1) LVIDd: 5.6 cm (3.9 - 5.3) LVPWd: 1.3 cm (0.6 - 1.1) IVSs: 1.6 cm LVIDs: 4.7 cm LVPWs: 1.5 cm LAESV Index (A-L): 42.15 ml/m Ao Diam: 3.8 cm (2.0 - 3.7) AV Cusp: 2.0 cm (1.5 - 2.6) LA Diam: 3.8 cm (2.7 - 3.8) EPSS: 0.9 cm MV E Aniceto: 0.99 m/s MV DecT: 237 ms MV A Aniceto: 0.00 m/s MV E/A Ratio: 252.36 RAP: 15.00 mmHg RVSP: 30.99 mmHg MV EF SLOPE: 141.42 mm/s (70 - 150) MV EXCURSION: 2.24 cm (> 18.000) FINDINGS -------- Atrial fibrillation. This was a technically adequate study. The left ventricular size is normal. There is mild concentric left ventricular hypertrophy. Overa ll left ventricular systolic function is moderate-severely impaired with, an EF between 30 - 35 %. The right ventricle is normal in size and function. LA is severely dilated >40 ml/m2 RA appears enlarged. Aortic valve is trileaflet and is mildly thickened. There is no evidence of aortic regurgitation. There is no evidence of aortic stenosis. The mitral valve leaflets are mildly thickened. Mild mitral annular calcification present. There is trace to mild mitral regurgitation. Trace tricuspid regurgitation present. Right ventricular systolic pressure is normal at < 35 mmHg. There is no evidence of pulmonary hypertension. The pulmonic valve was not well visualized. The aortic root size is normal. The inferior vena cava is dilated with poor inspiratory collapse which is consistent with estimated r ight atrial pressure of 20 mmHg. There is no pericardial effusion. CONCLUSIONS -------- 1. Atrial fibrillation. 2. This was a technically adequate study. 3. The left ventricular size is normal. 4. There is mild concentric left ventricular hypertrophy. 5. Overall left ventricular systolic function is moderate-severely impaired with, an EF between 30 - 35 %. 6. LA is severely dilated >40 ml/m2 7. RA appears enlarged. 8. Aortic valve is trileaflet and is mildly thickened. 9. The mitral valve leaflets are mildly thickened. 10. Mild mitral annular calcification present. 11. There is trace to mild mitral regurgitation. 12. Trace tricuspid regurgitation present. 13. Right ventricular systolic pressure is normal at < 35 mmHg. 14. There is no evidence of pulmonary hypertension. 15. The pulmonic valve was not well visualized. 16. The aortic root size is normal. 17. The inferior vena cava is dilated with poor inspiratory collapse which is consistent with estimat ed right atrial pressure of 20 mmHg. 18. There is no pericardial effusion. FUEL MANAGEMENT HANDLER: Gokul Hahn RDCS
--- NOTE | 2017-07-29 13:40 | P.PN ---
Subjective Progress Note Date: 07/29/17 Principal diagnosis: Acute COPD exacerbation with secondary shortness of breath and acute congestive heart failure, unspecified A pleasant 76-year-old male patient with known history of COPD with a baseline FEV1 of 59% of predicted, was had multiple hospitalizations the past for COPD exacerbation. The patient was being seen by Dr. Grier today in the office. He was felt to have worsening shortness of breath and this has been progressively getting worse over the past week or so. He has also gained around 6 pounds over the past few weeks. For that reason he was admitted to the hospital for treatment of an acute COPD exacerbation. No chest pain. No pleurisy. No hemoptysis. The patient has been maintained on a combination of Breo ellipta and Spiriva on outpatient basis. He has had several hospitalizations last year at [facility] for the same. His current chest x-ray showing some mild congestion. No clear S3 disease or pneumonia. No edema in lower extremities. On 07/28/2017 patient seen in follow-up. He is breathing easier today, currently on 2 L per nasal cannula with O2 sat at 92%. Vital signs are stable, patient is slightly tachycardic at times with a heart rate up to 112 BPM. Yesterday patient was given a dose of IV Lasix, and he is in -1800 mL fluid balance over the last 24 hours, and his weight is down by 1 kg next 24 hours. Patient states he was able to get up and walk, and tolerated reasonably well. Lung sounds are positive for a few scattered wheezes, no rales, no rhonchi noted on today's exam. Patient is improving, and has responded well to IV steroids, IV diuretics, nebulized bronchodilators and empiric antibiotics. Increase activity as tolerated, wean FiO2. We will obtain 2-D echocardiogram to assess left ventricle systolic function. On 07/29/2017 patient seen in follow-up on medical surgical floor. He is sitting up on the edge of the bed, reports his breathing is improving, lung sounds are less congested on today's exam. Patient was treated for an acute COPD exacerbation, with a combination of IV steroids, IV diuretics, nebulized bronchodilators and empiric antibiotics, he is improving. Echocardiogram was completed, and it showed an impaired left ventricular systolic function with an EF of 30-35%. ProBNP was within normal limits at 1670. Patient's vitals are stable, blood cultures are negative. Patient is stable for discharge home today from pulmonary standpoint. Objective - Vital Signs Vital signs: Vital Signs Temp 97.8 F 07/29/17 07:18 Pulse 95 07/29/17 12:33 Resp 20 07/29/17 08:00 BP 137/93 07/29/17 07:18 Pulse Ox 94 L 07/29/17 08:40 Intake & Output 07/28/17 07/29/17 07/29/17 18:59 06:59 18:59 Intake Total 1180 240 Balance 1180 240 Weight 106.1 kg Intake: Oral 1180 240 Other: Voiding Method Toilet Toilet Urinal Urinal # Voids 3 2 2 - Exam Obese, comfortable likely distress Head exam was generally normal. There was no scleral icterus or corneal arcus. Mucous membranes were moist. Neck was supple and without jugular venous distension, thyromegaly, or carotid bruits. Carotids were easily palpable bilaterally. There was no adenopathy. The patient has significant crowding of the posterior oropharynx and the patient is a Mallampati class IV Lung sounds are diminished bilaterally along with minimal wheezing, and some scattered rhonchi Cardiac exam revealed the PMI to be normally situated and sized. The rhythm was regular and no extrasystoles were noted during several minutes of auscultation. The first and second heart sounds were normal and physiologic splitting of the second heart sound was noted. There were no murmurs, rubs, clicks, or gallops. Abdominal exam revealed normal bowel sounds. The abdomen was soft, non-tender, and without masses, organomegaly, or appreciable enlargement of the abdominal aorta. Overall the patient is obese and there is no organomegaly appreciated Examination of the extremities revealed easily palpable radial, femoral and pedal pulses. There was no cyanosis, clubbing or edema. There are changes related to peripheral neuropathy. No open wounds or sores Examination of the skin revealed no evidence of significant rashes, suspicious appearing nevi or other concerning lesions. Neurologically the patient is awake and alert and there is no focal neurological deficit Psychiatrically the patient has normal mood and affect - Labs CBC & Chem 7: 07/29/17 08:18 07/29/17 08:18 Labs: Abnormal Lab Results - Last 24 Hours (Table) 07/28/17 07/28/17 07/29/17 Range/Units 17:27 19:52 06:58 WBC (3.8-10.6) k/uL Neutrophils # (1.3-7.7) k/uL Lymphocytes # (1.0-4.8) k/uL Sodium (137-145) mmol/L Chloride (98-107) mmol/L BUN (9-20) mg/dL Glucose (74-99) mg/dL POC Glucose (mg/dL) 349 H 261 H 262 H (75-99) mg/dL 07/29/17 07/29/17 07/29/17 Range/Units 08:18 08:18 11:00 WBC 14.7 H (3.8-10.6) k/uL Neutrophils # 13.6 H (1.3-7.7) k/uL Lymphocytes # 0.6 L (1.0-4.8) k/uL Sodium 135 L (137-145) mmol/L Chloride 91 L (98-107) mmol/L BUN 33 H (9-20) mg/dL Glucose 275 H (74-99) mg/dL POC Glucose (mg/dL) 326 H (75-99) mg/dL Microbiology - Last 24 Hours (Table) 07/27/17 10:02 Blood Culture - Preliminary Blood No Growth after 48 hours Assessment and Plan Plan: Assessment: 1 acute COPD exacerbation with secondary shortness of breath. 2 acute systolic congestive heart failure, and the echo showed left ventricular systolic function impairment, with an EF of 30-35%. 3 moderate to severe COPD with a baseline FEV1 of 59% of predicted 4 obesity with a BMI of 32 5 suspected obstructive sleep apnea with poor sleep quality and poor ability to maintain sleep and frequent nocturnal arousals and chronic hypersomnia 6 peripheral neuropathy 7 peripheral vascular disease 8 hypertension 9 hyperlipidemia 10 diabetes mellitus Plan: Patient continues to improve, breathing easier today, minimal wheezing, and less congestion. Patient has responded well to IV diuretics, empiric antibiotics, IV steroids and nebulized treatments. Vital signs are stable. From pulmonary standpoint patient could be discharged home today, on prednisone taper, outpatient course of antibiotics, his maintenance inhalers and nebulized treatments (Breo-Ellipta, Spiriva,Ventolin). Follow-up with Dr. Grier in the office in one week I performed a history & physical examination of the patient and discussed their management with my nurse practitioner, Nicky Lopez. I reviewed the nurse practitioner's note and agree with the documented findings and plan of care. Lung sounds are minimal wheezes, and a few rhonchi overall improved. The findings and the impression was discussed with the patient. I attest to the documentation by the nurse practitioner. Time with Patient: Less than 30
[2017-07-29 14:26] VITALS: PULSE 111
--- NOTE | 2017-07-29 15:04 | P.DS ---
Providers Date of admission: 07/27/17 11:49 Attending physician: Parisa Rutherford Consults: 07/27/17 11:49 Consult Physician Routine Consulting Provider: Adi Grier Reason/Comments: COPD exacerbation Do you want consulting provider notified?: Yes Hospital Course: This is a pleasant 76 years old male with past medical history of A. fib, CHF, COPD oxygen dependent at home, DM, hyperlipidemia, hypertension, PVD, status post stent, peripheral neuropathy who presents to his doctor office with dyspnea and Dr. Grier send him to the emergency room for COPD exacerbation Patient complaining of from cough and yellowish phlegm of 2 weeks duration, shortness of breath was progressively worsening over several weeks Patient denies dizziness or chest pain or leg pain, pt was found to have acute exacerbation of COPD, patient was evaluated by the pulmonary team, patient treated with IV steroids, breathing treatment, and oxygen and aortic patient showed interval improvement in his breathing is much better as and he feels like he is ready to discharge home Echo was done which shows EF 30-35%, patient denies any chest pain, EKG shows A. fib with heart rate of 98, with no significant ST-T changes , he is already on liquids and heart rate is controlled on medication , we are comment recommend cardiology follow-up as an outpatient Patient uses oxygen at home Patient has white cell count going of 14.7, no symptoms of infection,mostly this is due to the steroid effect, follow-up WBC as outpatient, pt already made appointment with pcp, Problem list and management plan were discussed with the patient and his at bed side (Aide), they verbalized understanding and acceptance Patient is found stable and can be discharged home, however he needs follow-up as an outpatient, patient agrees with the follow-up plan Constitutional: No acute distress, conversant, pleasant Eyes: Anicteric sclerae, moist conjunctiva, no lid-lag PERRLA ENMT: NC/AT Oropharynx clear, no erythema, exudates Neck: Supple, FROM, no masses, or JVD No carotid bruits No thyromegaly Lungs: Clear to auscultation Clear to percussion Normal respiratory effort, no accessory muscle use Cardiovascular: Heart regular in rate and rhythm, No murmurs, gallops, or rubs No peripheral edema Abdominal: Soft Nontender, no guarding, rebound or rigidity Abdomen moving with respiration Normoactive bowel sounds No hepatomegaly, No splenomegaly No palpable mass No abdominal wall hernia noted Skin: Normal temperature, tone, texture, turgor No induration No subcutaneous nodules No rash, lesions No ulcers Extremities: No digital cyanosis No clubbing Pedal pulses intact and symmetrical Radial pulses intact and symmetrical Normal gait and station No calf tenderness Psychiatric: Alert and oriented to person, place and time Appropriate affect Intact judgement Neuro: Muscles Strength 5/5 in all 4 extremities Sensation to light touch grossly present throughout Cranial nerves II-XII grossly intact No focal sensory deficits Patient Condition at Discharge: Fair Plan - Discharge Summary Discharge Rx Participant: No New Discharge Prescriptions: New Doxycycline Monohydrate [Vibramycin] 100 mg PO BID 3 Days #6 capsule predniSONE 5 mg PO DAILY #15 tab Magnesium Oxide [Mag-Ox] 400 mg PO DAILY #4 tablet Continue sitaGLIPtin [Januvia] 50 mg PO DAILY Diltiazem HCl 15 mg PO Q8H Furosemide [Lasix] 20 mg PO DAILY Apixaban [Eliquis] 5 mg PO BID Albuterol Nebulized [Ventolin Nebulized] 2.5 mg INHALATION RT-QID Tiotropium [place] [Spiriva] 18 mcg INHALATION RT-DAILY Fluticasone/Vilanterol [Breo Ellipta 200-25 Mcg INH] 1 puff INHALATION RT- DAILY rOPINIRole HCL [Requip] 0.25 mg PO HS DULoxetine HCL [Cymbalta] 60 mg PO HS Albuterol Inhaler [Ventolin Hfa Inhaler] 1 - 2 puff INHALATION RT-Q4H PRN PRN Reason: Wheezing Morphine Sulfate Ir [MSIR] 7.5 mg PO TID PRN PRN Reason: Pain Morphine Sulfate Ir [MSIR] 7.5 mg PO HS Morphine Sulfate ER [Ms Contin] 60 mg PO HS Gabapentin [Neurontin] 600 mg PO BID Fenofibrate Nanocrystallized [Tricor] 145 mg PO DAILY metFORMIN HCL [Glucophage] 1,000 mg PO BID Lisinopril [Zestril] 2.5 mg PO DAILY Isosorbide Mononitrate ER [Imdur] 30 mg PO DAILY Aspirin 81 mg PO DAILY Atenolol [Tenormin] 25 mg PO DAILY Discharge Medication List Albuterol Inhaler [Ventolin Hfa Inhaler] 1 - 2 puff INHALATION RT-Q4H PRN [History] Albuterol Nebulized [Ventolin Nebulized] 2.5 mg INHALATION RT-QID 07/27/17 [ History] Apixaban [Eliquis] 5 mg PO BID 07/27/17 [History] Aspirin 81 mg PO DAILY 07/27/17 [History] Atenolol [Tenormin] 25 mg PO DAILY 07/27/17 [History] DULoxetine HCL [Cymbalta] 60 mg PO HS 07/27/17 [History] Diltiazem HCl 15 mg PO Q8H 07/27/17 [History] Fenofibrate Nanocrystallized [Tricor] 145 mg PO DAILY 07/27/17 [History] Fluticasone/Vilanterol [Breo Ellipta 200-25 Mcg INH] 1 puff INHALATION RT-DAILY 07/27/17 [History] Furosemide [Lasix] 20 mg PO DAILY 07/27/17 [History] Gabapentin [Neurontin] 600 mg PO BID 07/27/17 [History] Isosorbide Mononitrate ER [Imdur] 30 mg PO DAILY 07/27/17 [History] Lisinopril [Zestril] 2.5 mg PO DAILY 07/27/17 [History] Morphine Sulfate ER [Ms Contin] 60 mg PO HS 07/27/17 [History] Morphine Sulfate Ir [MSIR] 7.5 mg PO HS 07/27/17 [History] Morphine Sulfate Ir [MSIR] 7.5 mg PO TID PRN 07/27/17 [History] Tiotropium [place] [Spiriva] 18 mcg INHALATION RT-DAILY 07/27/17 [History] metFORMIN HCL [Glucophage] 1,000 mg PO BID 07/27/17 [History] rOPINIRole HCL [Requip] 0.25 mg PO HS 07/27/17 [History] sitaGLIPtin [Januvia] 50 mg PO DAILY 07/27/17 [History] Doxycycline Monohydrate [Vibramycin] 100 mg PO BID 3 Days #6 capsule 07/29/17 [ Rx] Magnesium Oxide [Mag-Ox] 400 mg PO DAILY #4 tablet 07/29/17 [Rx] predniSONE 5 mg PO DAILY #15 tab 07/29/17 [Rx] Follow up Appointment(s)/Referral(s): Shama Tsang MD [STAFF PHYSICIAN] - 08/10/17 9:15 am Adi Grier DO [Doctor of Osteopathic Medicine] - 08/05/17 11:00 am Darrius Bolivar MD [STAFF PHYSICIAN] - 08/20/17 3:45 pm (please follow up with your appointment as you informed the medical team you have appointment on 08/19/2017 reason: abnormal echo ef 30-35& and a fib) Patient Instructions/Handouts: Doxycycline (By mouth), Prednisone (By mouth), COPD (Chronic Obstructive Pulmonary Disease) (DC) Activity/Diet/Wound Care/Special Instructions: We recommend cardiac diet with fluid restriction to 2 L per day and salt restriction to 2 g per day of anesthesia Activity as tolerated Continue with home oxygen
== END 2017-07-29 15:24 | disposition home or self-care (01) | DRG 190 ==
LOC: SUPCPDRO 09:33 → EC 09:33 → 5MS5E 11:49
PROVIDERS: ADMIT Hospitalist; ATTEND Hospitalist
DX: J44.1 Chronic obstructive pulmonary disease with (acute) exacerbation (principal); I50.21 Acute systolic (congestive) heart failure; J96.11 Chronic respiratory failure with hypoxia; E11.42 Type 2 diabetes mellitus with diabetic polyneuropathy; E11.51 Type 2 diabetes mellitus with diabetic peripheral angiopathy without gangrene; E66.9 Obesity, unspecified; E78.5 Hyperlipidemia, unspecified; F17.210 Nicotine dependence, cigarettes, uncomplicated; G25.81 Restless legs syndrome; I11.0 Hypertensive heart disease with heart failure; I70.203 Unspecified atherosclerosis of native arteries of extremities, bilateral legs; I25.10 Atherosclerotic heart disease of native coronary artery without angina pectoris; I25.2 Old myocardial infarction; I48.91 Unspecified atrial fibrillation; Z68.32 Body mass index [BMI] 32.0-32.9, adult; Z79.01 Long term (current) use of anticoagulants; Z79.82 Long term (current) use of aspirin; Z79.84 Long term (current) use of oral hypoglycemic drugs; Z79.899 Other long term (current) drug therapy; Z82.49 Family history of ischemic heart disease and other diseases of the circulatory system; Z95.5 Presence of coronary angioplasty implant and graft; Z95.820 Peripheral vascular angioplasty status with implants and grafts; Z96.611 Presence of right artificial shoulder joint; Z96.642 Presence of left artificial hip joint; Z99.81 Dependence on supplemental oxygen; H26.9 Unspecified cataract; Z88.0 Allergy status to penicillin; G47.33 Obstructive sleep apnea (adult) (pediatric); G47.10 Hypersomnia, unspecified
CPT/HCPCS: 36415; 71045; 80048; 80053; 82550; 82553; 83735; 83880; 84484; 85025; 85610; 85730; 87040; 93005; 93306; 94640; 94644; 94760; 96374; 96375; 99291

== ENCOUNTER → 2018-08-14 | Outpatient (CLI) | payer MEDICARE ==
--- NOTE | 2018-08-14 19:12 | MR ---
EXAMINATION TYPE: MR lumbar spine wo con DATE OF EXAM: 08/14/2018 COMPARISON: None HISTORY: Chronic LBP, radiates into buttocks, recently getting worse, idiopathic scoliosis TECHNIQUE: Multiplanar, multisequence images of the lumbar spine were acquired. L1-L2: Posterior broad-based disc bulge causes anterior mass effect on the thecal sac. There is facet arthropathy change. L2-L3: Posterior broad-based disc bulge causes mild anterior mass effect on the thecal sac. No signif icant central stenosis or foraminal encroachment. There is facet arthropathy change. L3-4: Posterior broad-based disc bulge causes anterior mass effect on the thecal sac. Circumferential extension of endplate disc complex results in left-sided foraminal encroachment. Facet arthropathy w ith hypertrophic changes of the ligamentum flavum, facet causes some posterior lateral mass effect on the thecal sac, there is mild to moderate central canal stenosis. L4-L5: Facet arthropathy with hypertrophic change causes some posterior lateral mass effect on the th ecal sac greater on the right, there is circumferential broad-based posterior disc bulge causing mild anterior mass effect on the thecal sac. Circumferential extension endplate disc complex contributes with the scoliosis results in right-sided foraminal encroachment. L5-S1: Facet arthropathy changes are present. Circumferential extension of endplate disc complex resu lts in foraminal encroachment left greater than right. No significant spinal stenosis. Posterior broa d-based disc bulge causes mild anterior mass effect on the thecal sac. Lumbar segments are intact. No paraspinal masses are identified. Conus medullaris has a normal appe arance. There is an anterolisthesis grade 1 L4-5, multilevel spondylosis is present with endplate dis cogenic marrow signal change and associated loss of disc height signal, intervertebral vacuum disc ph enomenon present. Infrarenal abdominal aorta shows a caliber of approximately 3.2 cm. There is a scol iotic curvature which is S-shaped. IMPRESSION: Multilevel degenerative disc disease, facet arthropathy, foraminal encroachment, scoliosis, there is spinal stenosis mild to moderate at L2-3. Abdominal aortic ectasia.
== END | disposition home or self-care (01) ==
LOC: RADMRIMAIN 10:08
PROVIDERS: ATTEND Neurological Surgery
DX: M48.061 Spinal stenosis, lumbar region without neurogenic claudication (principal); M51.36 Other intervertebral disc degeneration, lumbar region; M46.96 Unspecified inflammatory spondylopathy, lumbar region; M41.86 Other forms of scoliosis, lumbar region; I77.811 Abdominal aortic ectasia
CPT/HCPCS: 72148

== ENCOUNTER 2019-03-18 18:07 | Inpatient (IN) | payer MEDICARE ==
[2019-03-18] MEDS ORDERED: IPRATROPIUM-ALBUTEROL 3 ML NEB INHALATION STA (18:36)
[2019-03-18] MEDS ORDERED: AZITHROMYCIN 500 MG TAB PO STA (18:36)
[2019-03-18] MEDS ORDERED: DIPH,PERTUS(ACELL)TETVAC-LF 0.5 ML VIAL IM ONE (18:36)
[2019-03-18] MEDS ORDERED: methylPREDNISolone SOD SUCCI 125 MG/2 ML VIAL IV STA (18:37)
[2019-03-18 18:48] LABS: Basophils # (A) 0.4 k/uL (0-0.2); Basophils % (A) 3 %; Eosinophils % (A) 0 %; HCT 48.5 % (39.0-53.0); HGB 15.9 gm/dL (13.0-17.5); Lymphocytes # (A) 0.4 k/uL (1.0-4.8); Lymphocytes % (A) 3 %; MCH 31.1 pg (25.0-35.0); MCHC 32.7 g/dL (31.0-37.0); MCV 95.2 fL (80.0-100.0); Mean Platelet Volume 8.4; Monocytes # (A) 0.5 k/uL (0-1.0); Monocytes % (A) 5 %; Neutrophils # (A) 10.1 k/uL (1.3-7.7); Neutrophils % (A) 87 %; Platelet Count 241 k/uL (150-450); RDW 12.7 % (11.5-15.5); WBC 11.7 k/uL (3.8-10.6)
--- NOTE | 2019-03-18 18:52 | ED ---
General Adult HPI - General Chief complaint: Upper Respiratory Infection Stated complaint: JULIANNE,COPD, WEAKNESS Time Seen by Provider: 03/18/19 18:23 Source: patient, RN notes reviewed, old records reviewed Mode of arrival: ambulatory Limitations: no limitations - History of Present Illness Initial comments: 78-year-old male patient past history significant for atrial fibrillation, CHF, COPD on home oxygen, type 2 diabetes presents to ED for chief complaint of 2 days of cough, short of breath. Reports that he has some pain in his chest with coughing, no pain at baseline. Patient was recently exposed to sick children over the holidays. Patient was also bitten by his sons pet dog yesterday. Reports that he had socks on the time however there was blood drawn in the anterior and posterior aspect of the ankle. Denies any fevers. Denies any other complaints at this time. Systemic: Pt denies fatigue, fever/chills, rash. Pt denies weakness, night sweats, weight loss. Neuro: Pt denies headache, visual disturbances, syncope or pre-syncope. HEENT: Pt denies ocular discharge or irritation, otalgia, rhinorrhea, pharyngitis or notable lymphadenopathy. Cardiopulmonary: Pt denies chest pain, heart palpitations, dyspnea on exertion. Abdominal/GI: Pt denies abdominal pain, n/v/d. : Pt denies dysuria, burning w/ urination, frequency/urgency. Denies new onset urinary or bowel incontinence. MSK: Pt denies myalgia, loss of strength or function in extremities. Neuro: Pt denies new onset weakness, paresthesias. - Related Data Home Medications Medication Instructions Recorded Confirmed Albuterol Inhaler [Ventolin Hfa 1 - 2 puff INHALATION RT-Q4H PRN 07/27/17 07/27/17 Inhaler] Albuterol Nebulized [Ventolin 2.5 mg INHALATION RT-QID 07/27/17 07/27/17 Nebulized] Apixaban [Eliquis] 5 mg PO BID 07/27/17 07/27/17 Aspirin 81 mg PO DAILY 07/27/17 07/27/17 Atenolol [Tenormin] 25 mg PO DAILY 07/27/17 07/27/17 DULoxetine HCL [Cymbalta] 60 mg PO HS 07/27/17 07/27/17 Diltiazem HCl 15 mg PO Q8H 07/27/17 07/27/17 Fenofibrate Nanocrystallized 145 mg PO DAILY 07/27/17 07/27/17 [Tricor] Fluticasone/Vilanterol [Breo 1 puff INHALATION RT-DAILY 07/27/17 07/27/17 Ellipta 200-25 Mcg INH] Furosemide [Lasix] 20 mg PO DAILY 07/27/17 07/27/17 Gabapentin [Neurontin] 600 mg PO BID 07/27/17 07/27/17 Isosorbide Mononitrate ER [Imdur] 30 mg PO DAILY 07/27/17 07/27/17 Lisinopril [Zestril] 2.5 mg PO DAILY 07/27/17 07/27/17 Morphine Sulfate ER [Ms Contin] 60 mg PO HS 07/27/17 07/27/17 Morphine Sulfate Ir [MSIR] 7.5 mg PO HS 07/27/17 07/27/17 Morphine Sulfate Ir [MSIR] 7.5 mg PO TID PRN 07/27/17 07/27/17 Tiotropium [place] [Spiriva] 18 mcg INHALATION RT-DAILY 07/27/17 07/27/17 metFORMIN HCL [Glucophage] 1,000 mg PO BID 07/27/17 07/27/17 rOPINIRole HCL [Requip] 0.25 mg PO HS 07/27/17 07/27/17 sitaGLIPtin [Januvia] 50 mg PO DAILY 07/27/17 07/27/17 Previous Rx's Medication Instructions Recorded Doxycycline [Vibramycin] 100 mg PO BID 3 Days #6 capsule 07/29/17 Magnesium Oxide [Mag-Ox] 400 mg PO DAILY #4 tablet 07/29/17 predniSONE 5 mg PO DAILY #15 tab 07/29/17 Allergies Allergy/AdvReac Type Severity Reaction Status Date / Time Penicillins Allergy Rash/Hives Verified 07/27/17 09:51 Review of Systems ROS Statement: Those systems with pertinent positive or pertinent negative responses have been documented in the HPI. ROS Other: All systems not noted in ROS Statement are negative. Past Medical History Past Medical History: Atrial Fibrillation, Heart Failure, COPD, Diabetes Mellitus, Hyperlipidemia, Hypertension, Myocardial Infarction (CT), Vascular Disorder Additional Past Medical History / Comment(s): COPD severe in nature, coronary artery disease with previous coronary stenting and previous myocardial infarction, [id number] diabetes mellitus type 2, peripheral neuropathy, peripheral vascular disease with previous stenting of the left lower extremity and previous vascular surgery in the right leg, frequent falls, previous history of sores in the lower extremity in the heels, chronic hypoxic respiratory failure maintained on oxygen at 2 L/m nasal cannula, restless leg syndrome, chronic back pain, abdominal wall hernia, bilateral cataracts, hyperlipidemia, hypertension, diabetes mellitus Last Myocardial Infarction Date:: unkn History of Any Multi-Drug Resistant Organisms: None Reported Past Surgical History: Hernia Repair, Joint Replacement, Orthopedic Surgery Additional Past Surgical History / Comment(s): Cardiac catheterization with coronary stenting, back surgery, appendectomy, hernia repair, left total hip replacement, right shoulder replacement, right rotator cuff repair, TURP, left lower extremity angioplasty and stenting for peripheral vascular disease, previous colonoscopies Past Anesthesia/Blood Transfusion Reactions: No Reported Reaction Past Psychological History: Anxiety, Depression Smoking Status: Current every day smoker - Past Family History Father Family Medical History: Myocardial Infarction (CT) Additional Family Medical History / Comment(s): Father of a CT at the age of 62 yrs. Mother Additional Family Medical History / Comment(s): Mother was a heavy smoker. General Exam - General Exam Comments Initial Comments: Constitutional: NAD, AOX3, Pt has pleasant affect. HEENT: NC/AT, trachea midline, neck supple, no lymphadenopathy. Posterior pharynx non erythematous, without exudates. External ears appear normal, without discharge. Mucous membranes moist. Eyes PERRLA, EOM intact. There is no scleral icterus. No pallor noted. Cardiopulmonary: Irregularly irregular rhythm, no murmurs, rubs or gallops, no JVD noted. Wheezing noted in anterior lung kraft.. No peripheral edema. Abdominal exam: Abdomen soft and non-distended. Abdomen non-tender to palpation in all 4 quadrants. Bowel sounds active in LLQ. No hepatosplenomegaly. No ecchymosis Neuro: CN II-XII grossly intact. No nuchal rigidity. No raccon eyes, no anthony sign, no hemotympanum. No cervical spinal tenderness. MSK: Small abrasion or anterior and posterior ankle from dog bite. Cleaned in ED. No posterior calf tenderness bilaterally, homans sign negative bilaterally. Posterior tibialis and radial pulse +2 bilaterally. Sensation intact in upper and lower extremities. Full active ROM in upper and lower extremities, 5/5 stregnth. Limitations: no limitations Course Vital Signs 03/18/19 03/18/19 03/18/19 18:12 18:50 19:08 Temperature 97.8 F Pulse Rate 109 H 100 102 H Respiratory 22 22 24 Rate Blood Pressure 127/68 O2 Sat by Pulse 93 L Oximetry Medical Decision Making - Medical Decision Making 78-year-old male patient past history significant for COPD on home oxygen presents to ED for chief complaint today is cough congestion. Patient was recently exposed to sick children over holidays. Patient also had a minor dog bite on his left ankle yesterday by his son's dog. This is reportedly a pet, up-to-date on all vaccines, acting appropriately baseline. Physical exam displayed wheezing anterior and posterior kraft. Moderate improvement after breathing treatments. Laboratory investigation S lifting for a leukocytosis of 10 with left shift. Influenza is positive. EKG displayed a true fibrillation of which patient has a history. Chest x-ray revealed no significant change. Patient breathing moderately improved after DuoNeb breathing treatment however patient is still having wheezing and moderate work of breathing. Patient be admitted for influenza, COPD exacerbation. Patient started on Tamiflu. Patient also initiated on azithromycin for dog bite and COPD exacerbation. Patient does have history of penicillin ALLERGY. Case discussed with Dr. Villalobos. - Lab Data Result diagrams: 03/18/19 18:34 03/18/19 18:34 Lab Results 03/18/19 03/18/19 03/18/19 Range/Units 18:34 18:34 18:34 WBC 11.7 H (3.8-10.6) k/uL RBC 5.10 (4.30-5.90) m/uL Hgb 15.9 (13.0-17.5) gm/dL Hct 48.5 (39.0-53.0) % MCV 95.2 (80.0-100.0) fL MCH 31.1 (25.0-35.0) pg MCHC 32.7 (31.0-37.0) g/dL RDW 12.7 (11.5-15.5) % Plt Count 241 (150-450) k/uL Neutrophils % 87 % Lymphocytes % 3 % Monocytes % 5 % Eosinophils % 0 % Basophils % 3 % Neutrophils # 10.1 H (1.3-7.7) k/uL Lymphocytes # 0.4 L (1.0-4.8) k/uL Monocytes # 0.5 (0-1.0) k/uL Eosinophils # 0.0 (0-0.7) k/uL Basophils # 0.4 H (0-0.2) k/uL Sodium 139 (137-145) mmol/L Potassium 4.8 (3.5-5.1) mmol/L Chloride 102 (98-107) mmol/L Carbon Dioxide 29 (22-30) mmol/L Anion Gap 8 mmol/L BUN 22 H (9-20) mg/dL Creatinine 0.77 (0.66-1.25) mg/dL Est GFR (CKD-EPI)AfAm >90 (>60 ml/min/1.73 sqM) Est GFR (CKD-EPI)NonAf 87 (>60 ml/min/1.73 sqM) Glucose 152 H (74-99) mg/dL Plasma Lactic Acid Jatin 1.5 (0.7-2.0) mmol/L Calcium 9.4 (8.4-10.2) mg/dL Total Bilirubin 0.6 (0.2-1.3) mg/dL AST 24 (17-59) U/L ALT 16 (4-49) U/L Alkaline Phosphatase 55 (38-126) U/L Troponin I (0.000-0.034) ng/mL Total Protein 7.1 (6.3-8.2) g/dL Albumin 4.2 (3.5-5.0) g/dL Urine Color Urine Appearance (Clear) Urine pH (5.0-8.0) Ur Specific [place] (1.001-1.035) Urine Protein (Negative) Urine Glucose (UA) (Negative) Urine Ketones (Negative) Urine Blood (Negative) Urine Nitrite (Negative) Urine Bilirubin (Negative) Urine Urobilinogen (<2.0) mg/dL Ur Leukocyte Esterase (Negative) Influenza Type A RNA (Not Detectd) Influenza Type B (PCR) (Not Detectd) 03/18/19 03/18/19 03/18/19 Range/Units 18:34 19:00 19:00 WBC (3.8-10.6) k/uL RBC (4.30-5.90) m/uL Hgb (13.0-17.5) gm/dL Hct (39.0-53.0) % MCV (80.0-100.0) fL MCH (25.0-35.0) pg MCHC (31.0-37.0) g/dL RDW (11.5-15.5) % Plt Count (150-450) k/uL Neutrophils % % Lymphocytes % % Monocytes % % Eosinophils % % Basophils % % Neutrophils # (1.3-7.7) k/uL Lymphocytes # (1.0-4.8) k/uL Monocytes # (0-1.0) k/uL Eosinophils # (0-0.7) k/uL Basophils # (0-0.2) k/uL Sodium (137-145) mmol/L Potassium (3.5-5.1) mmol/L Chloride (98-107) mmol/L Carbon Dioxide (22-30) mmol/L Anion Gap mmol/L BUN (9-20) mg/dL Creatinine (0.66-1.25) mg/dL Est GFR (CKD-EPI)AfAm (>60 ml/min/1.73 sqM) Est GFR (CKD-EPI)NonAf (>60 ml/min/1.73 sqM) Glucose (74-99) mg/dL Plasma Lactic Acid Jatin (0.7-2.0) mmol/L Calcium (8.4-10.2) mg/dL Total Bilirubin (0.2-1.3) mg/dL AST (17-59) U/L ALT (4-49) U/L Alkaline Phosphatase (38-126) U/L Troponin I <0.012 (0.000-0.034) ng/mL Total Protein (6.3-8.2) g/dL Albumin (3.5-5.0) g/dL Urine Color Yellow Urine Appearance Clear (Clear) Urine pH 5.0 (5.0-8.0) Ur Specific [place] 1.011 (1.001-1.035) Urine Protein Trace H (Negative) Urine Glucose (UA) Negative (Negative) Urine Ketones Negative (Negative) Urine Blood Negative (Negative) Urine Nitrite Negative (Negative) Urine Bilirubin Negative (Negative) Urine Urobilinogen <2.0 (<2.0) mg/dL Ur Leukocyte Esterase Negative (Negative) Influenza Type A RNA Detected H (Not Detectd) Influenza Type B (PCR) Not Detected (Not Detectd) - EKG Data -: EKG Interpreted by Me EKG Comments: Ventricular rate 95, curious 96, QT/QTC 334/419. Atrial fibrillation, normal EKG. Patient has history of atrial fibrillation. Disposition Clinical Impression: COPD exacerbation, Influenza A Disposition: ADMITTED IP TO THIS HOSP Condition: Serious Is patient prescribed a controlled substance at d/c from ED?: No Referrals: Shama Tsang MD [Primary Care Provider] - 1-2 days
[2019-03-18 18:56] LABS: ALT 16 U/L (4-49); AST 24 U/L (17-59); African American GFR (CKD) >90 (>60 ml/min/1.73 sqM); Albumin 4.2 g/dL (3.5-5.0); Alkaline Phosphatase 55 U/L (38-126); Anion Gap 8 mmol/L; Blood Urea Nitrogen 22 mg/dL (9-20); Calcium 9.4 mg/dL (8.4-10.2); Carbon Dioxide 29 mmol/L (22-30); Chloride 102 mmol/L (98-107); Glucose 152 mg/dL (74-99); Non-African American GFR(CKD) 87 (>60 ml/min/1.73 sqM); Potassium 4.8 mmol/L (3.5-5.1); Sodium 139 mmol/L (137-145); Total Bilirubin 0.6 mg/dL (0.2-1.3); Total Protein 7.1 g/dL (6.3-8.2)
[2019-03-18 19:11] LABS: Appearance,Urine Clear (Clear); Bilirubin,Urine Negative (Negative); Blood,Urine Negative (Negative); Color,Urine Yellow; Glucose,Urine (UA) Negative (Negative); Ketones,Urine Negative (Negative); Leukocyte Esterase,Urine Negative (Negative); Nitrite,Urine Negative (Negative); Protein,Urine Trace (Negative); Specific Gravity,Urine 1.011 (1.001-1.035); Urobilinogen,Urine <2.0 mg/dL (<2.0)
--- NOTE | 2019-03-18 19:26 | XR ---
EXAMINATION TYPE: XR chest 2V DATE OF EXAM: 03/18/2019 COMPARISON: 07/27/2017 HISTORY: Short of breath TECHNIQUE: 2 views FINDINGS: There is some coarse interstitial density in the lungs. Heart size is fairly normal. There is no heart failure. There is right shoulder prosthesis. There is no pleural effusion. Bony thorax is intact. IMPRESSION: Pulmonary interstitial fibrotic changes not significantly different than old exam. Normal heart.
[2019-03-18] MEDS ORDERED: ALBUTEROL NEBULIZED 2.5 MG/3 ML INHALATION STA (19:40)
[2019-03-18] MEDS ORDERED: MORPHINE SULFATE 4 MG/ML SYRINGE IV STA (20:56)
[2019-03-18] MEDS: OSELTAMIVIR 75 MG CAP PO SCH (21:24)
[2019-03-18] MEDS: SODIUM CHLORIDE 0.9% 1,000 ML IV SCH (21:45)
[2019-03-18] MEDS: methylPREDNISolone SOD SUCCI 125 MG/2 ML VIAL IV SCH (23:50)
[2019-03-18] MEDS: APIXABAN 5 MG TAB PO SCH (23:50)
[2019-03-19] MEDS: GABAPENTIN 300 MG CAP PO SCH ×3 (00:53→16:05)
[2019-03-19] MEDS: MORPHINE SULFATE 2 MG/ML SYRINGE IVP PRN ×3 (02:23→13:07)
[2019-03-19] MEDS: methylPREDNISolone SOD SUCCI 125 MG/2 ML VIAL IV SCH ×3 (05:35→18:23)
[2019-03-19 07:04] LABS: Glucose,Whole Blood 269 mg/dL (75-99)
[2019-03-19] MEDS: APIXABAN 5 MG TAB PO SCH ×2 (07:48→21:21)
[2019-03-19] MEDS: OSELTAMIVIR 75 MG CAP PO SCH ×2 (07:49→22:39)
[2019-03-19] MEDS: ALBUTEROL NEBULIZED 2.5 MG/3 ML INHALATION SCH ×5 (08:51→22:13)
[2019-03-19 11:50] LABS: Glucose,Whole Blood 279 mg/dL (75-99)
--- NOTE | 2019-03-19 12:29 | P.HPIM ---
History of Present Illness This is a pleasant 78 years old male with past medical history of heart failure, atrial fibrillation, COPD, diabetes mellitus, hypertension, hyperlipidemia. Presents because of dyspnea and cough with whitish phlegm of 2 days' duration associated with some congestion but no chest pain Patient smokes however he could not clarify. Patient is counseled and he was nicotine patch to quit vitals are stable and patient is afebrile however he is in the 4 L oxygen with saturation of 95%. Labs showing mild leukocytosis of 11.7 K. Sugar is slightly elevated at 279. Troponin is negative. Rest of BMP and liver enzymes are unremarkable. Urine is negative. Influenza is positive. EKG showing A. fib with heart rate of 95 . Chest x-ray showing chronic changes without significant change per radiologist patient was started on Tamiflu and Solu-Medrol and bronchodilator, patient was started on Zithromax Review of Systems CONSTITUTIONAL: No fever, no malaise, no fatigue. HEENT: No recent visual problems or hearing problems. Denied any sore throat. CARDIOVASCULAR: No orthopnea, PND, no palpitations, no syncope. PULMONARY: No shortness of breath, no cough, no hemoptysis. GASTROINTESTINAL: No diarrhea, no nausea, no vomiting, no abdominal pain. Normoactive bowel sounds. NEUROLOGICAL: No headaches, no weakness, no numbness. HEMATOLOGICAL: Denies any bleeding or petechiae. GENITOURINARY: Denies any burning micturition, frequency, or urgency. MUSCULOSKELETAL/RHEUMATOLOGICAL: Denies any joint pain, swelling, or any muscle pain. ENDOCRINE: Denies any polyuria or polydipsia. Past Medical History Past Medical History: Atrial Fibrillation, Heart Failure, COPD, Diabetes Mellitus, Hyperlipidemia, Hypertension, Myocardial Infarction (ME), Vascular Disorder Additional Past Medical History / Comment(s): COPD severe in nature, coronary artery disease with previous coronary stenting and previous myocardial infarction, [id number] diabetes mellitus type 2, peripheral neuropathy, peripheral vascular disease with previous stenting of the left lower extremity and previous vascular surgery in the right leg, frequent falls, previous history of sores in the lower extremity in the heels, chronic hypoxic respiratory failure maintained on oxygen at 3 L/m nasal cannula, restless leg syndrome, chronic back pain, abdominal wall hernia, bilateral cataracts, hyperlipidemia, hypertension, diabetes mellitus Last Myocardial Infarction Date:: unkn History of Any Multi-Drug Resistant Organisms: None Reported Past Surgical History: Hernia Repair, Joint Replacement, Orthopedic Surgery Additional Past Surgical History / Comment(s): Cardiac catheterization with coronary stenting, back surgery, appendectomy, hernia repair, left total hip replacement, right shoulder replacement, right rotator cuff repair, TURP, left lower extremity angioplasty and stenting for peripheral vascular disease, previous colonoscopies Past Anesthesia/Blood Transfusion Reactions: No Reported Reaction Past Psychological History: Anxiety, Depression Additional Psychological History / Comment(s): Pt resides with his spouse. He drives little. He wears oxygen at 3L/NC ATC. He has a glucometer and nebulizer. His spouse manages his medication. Smoking Status: Current every day smoker Past Alcohol Use History: None Reported Additional Past Alcohol Use History / Comment(s): Pt started smoking as a teen and is at least a ppd smoker. Past Drug Use History: None Reported - Past Family History Father Family Medical History: Myocardial Infarction (ME) Additional Family Medical History / Comment(s): Father of a ME at the age of 62 yrs. Mother Additional Family Medical History / Comment(s): Mother was a heavy smoker. Medications and Allergies Home Medications Medication Instructions Recorded Confirmed Type Albuterol Inhaler [Ventolin Hfa 1 - 2 puff INHALATION RT-Q4H PRN 07/27/17 03/18/19 History Inhaler] Albuterol Nebulized [Ventolin 2.5 mg INHALATION RT-QID 07/27/17 03/18/19 History Nebulized] Apixaban [Eliquis] 5 mg PO BID 07/27/17 03/18/19 History Aspirin 81 mg PO DAILY 07/27/17 03/18/19 History Atenolol [Tenormin] 25 mg PO DAILY 07/27/17 03/18/19 History DULoxetine HCL [Cymbalta] 60 mg PO HS 07/27/17 03/18/19 History Diltiazem HCl 15 mg PO Q8H 07/27/17 03/18/19 History Fenofibrate Nanocrystallized 145 mg PO DAILY 07/27/17 03/18/19 History [Tricor] Fluticasone/Vilanterol [Breo 1 puff INHALATION RT-DAILY 07/27/17 03/18/19 History Ellipta 200-25 Mcg INH] Furosemide [Lasix] 20 mg PO Q48H 07/27/17 03/18/19 History Gabapentin [Neurontin] 600 mg PO BID@0900,1700 07/27/17 03/18/19 History Isosorbide Mononitrate ER [Imdur] 30 mg PO DAILY 07/27/17 03/18/19 History Lisinopril [Zestril] 2.5 mg PO DAILY 07/27/17 03/18/19 History Morphine Sulfate ER [Ms Contin] 60 mg PO HS 07/27/17 03/18/19 History Morphine Sulfate Ir [MSIR] 7.5 mg PO DAILY PRN 07/27/17 03/18/19 History Morphine Sulfate Ir [MSIR] 7.5 mg PO HS 07/27/17 03/18/19 History Tiotropium [place] [Spiriva] 1 cap INHALATION RT-DAILY 07/27/17 03/18/19 History metFORMIN HCL [Glucophage] 1,000 mg PO BID 07/27/17 03/18/19 History rOPINIRole HCL [Requip] 0.25 mg PO HS 07/27/17 03/18/19 History Grace-C 1 tab PO DAILY 03/18/19 03/18/19 History Multivitamins, Thera [Multivitamin 1 tab PO DAILY 03/18/19 03/18/19 History (formulary)] busPIRone HCl [Buspar] 5 mg PO BID@0100,1300 03/18/19 03/18/19 History sitaGLIPtin [Januvia] 100 mg PO DAILY 03/18/19 03/18/19 History tiZANidine HCL 2 mg PO BID PRN 03/18/19 03/18/19 History Allergies Allergy/AdvReac Type Severity Reaction Status Date / Time Penicillins Allergy Rash/Hives Verified 03/18/19 20:39 Physical Exam Vitals: Vital Signs Temp Pulse Pulse Pulse Resp BP BP 03/19/19 08:00 98.9 F 94 22 122/72 03/19/19 05:31 96.9 F L 91 22 122/72 03/18/19 22:24 98.0 F 97 125/67 03/18/19 21:25 105 H 21 111/62 03/18/19 20:41 106 H 24 03/18/19 20:30 104 H 24 03/18/19 19:08 102 H 24 03/18/19 18:50 100 22 03/18/19 18:12 97.8 F 109 H 22 127/68 Pulse Ox 03/19/19 08:00 98 03/19/19 05:31 94 L 03/18/19 22:24 95 03/18/19 21:25 94 L 03/18/19 20:41 03/18/19 20:30 03/18/19 19:08 03/18/19 18:50 03/18/19 18:12 93 L Intake and Output 03/18/19 03/19/19 03/19/19 22:59 06:59 14:59 Intake Total 400 Balance 400 Intake: Intake, IV Titration 400 Amount Sodium Chloride 0.9% 1, 400 000 ml @ 50 mls/hr IV . Q20H [facility] Rx#:[id number] Other: Voiding Method Urinal # Voids 1 Weight 96.162 kg GENERAL: The patient is alert and oriented x3, not in any acute distress. Well developed, well nourished. HEENT: Pupils are round and equally reacting to light. EOMI. No scleral icterus. No conjunctival pallor. Normocephalic, atraumatic. No pharyngeal erythema. No thyromegaly. CARDIOVASCULAR: S1 and S2 present. No murmurs, rubs, or gallops. -PULMONARY: Chest is clear to auscultation, bilateral scattered wheezing ABDOMEN: Soft, nontender, nondistended, normoactive bowel sounds. No palpable organomegaly. MUSCULOSKELETAL: No joint swelling or deformity. EXTREMITIES: No cyanosis, clubbing, or pedal edema. NEUROLOGICAL: Gross neurological examination did not reveal any focal deficits. SKIN: No rashes. No petechiae Results CBC & Chem 7: 03/18/19 18:34 03/18/19 18:34 Labs: Abnormal Lab Results - Last 24 Hours (Table) 03/18/19 03/18/19 03/18/19 Range/Units 18:34 18:34 19:00 WBC 11.7 H (3.8-10.6) k/uL Neutrophils # 10.1 H (1.3-7.7) k/uL Lymphocytes # 0.4 L (1.0-4.8) k/uL Basophils # 0.4 H (0-0.2) k/uL BUN 22 H (9-20) mg/dL Glucose 152 H (74-99) mg/dL POC Glucose (mg/dL) (75-99) mg/dL Urine Protein Trace H (Negative) Influenza Type A RNA (Not Detectd) 03/18/19 03/19/19 03/19/19 Range/Units 19:00 07:03 11:48 WBC (3.8-10.6) k/uL Neutrophils # (1.3-7.7) k/uL Lymphocytes # (1.0-4.8) k/uL Basophils # (0-0.2) k/uL BUN (9-20) mg/dL Glucose (74-99) mg/dL POC Glucose (mg/dL) 269 H 279 H (75-99) mg/dL Urine Protein (Negative) Influenza Type A RNA Detected H (Not Detectd) Thrombosis Risk Factor Assmnt - Choose All That Apply Any of the Below Risk Factors Present?: Yes Each Factor Represents 1 point: Abnormal pulmonary function (COPD), Obesity (BMI >25), Serious lung disease incl. pneumonia (< 1month) Other Risk Factors: Yes Each Risk Factor Represents 3 Points: Age 75 years or older Other congenital or acquired thrombophilia - If yes, enter type in comment: No Thrombosis Risk Factor Assessment Total Risk Factor Score: 6 Thrombosis Risk Factor Assessment Level: High Risk Assessment and Plan Assessment: Positive influenza type A COPD, with acute exacerbation Congestive heart failure Chronic Atrial fibrillation Nicotine dependence Hypertension Diabetes mellitus Hyperlipidemia Diabetic neuropathy History of frequent falls Chronic hypoxic respiratory failure on 3 L/m oxygen via [place] This is leg syndrome Chronic back pain on bilateral cataract Plan: This is a pleasant 78 there's old male who presents with influenza and COPD. Under consult. Continue with steroids. Continue with Tamiflu and Zithromax. Continue with bronchodilator and oxygen as needed. Labs and medication were reviewed.. Continue same treatment. Continue with symptomatic treatment. Resume home medication. Monitor lytes and vitals. DVT and GI prophylaxis. Further recommendations of the clinical course of the patient DVT prophylaxis: Subcutaneous heparin GI Prophylaxis: Pepcid PT/OT: Pending Prognosis is guarded
--- NOTE | 2019-03-19 14:31 | P.CNPUL ---
History of Present Illness Consult date: 03/19/19 Requesting physician: Gerber E Jake Reason for consult: COPD, pulmonary fibrosis Chief complaint: Cough and shortness of breath. History of present illness: This is a 78-year-old white male with history of gold stage II COPD, FEV1 is 59%, however the patient is O2 dependent, not prednisone dependent, and he normally sees Dr. Velez for his chronic hypoxic respiratory failure and underlying COPD. He was last seen in our office on 10/14/2018. His other medical problems include history of chronic systolic congestive heart failure, chronic atrial fibrillation, chronic hypoxic respiratory failure, insomnia, peripheral vessel occlusive disease, diabetes with diabetic neuropathy. Patient presented to the ER on 03/18/2019, he was complaining of 2 days history of increased shortness of breath, productive cough with whitish phlegm. Influenza screen was positive. Chest x-ray showed diffuse interstitial lung disease, felt that the patient may have underlying pulmonary fibrosis. Although looking at the notes from the office, there was no mention of interstitial lung disease on this patient before. Patient sees Dr. Velez mostly for moderate severe COPD. The findings on the present chest x-ray were not present on previous chest x-ray dated Aug 06 2017, hence I believe the findings are mostly findings of chronic systolic congestive heart failure. Although may consider a high-resolution CT of the chest in a.m. Patient was treated with Tamiflu, bronchodilators, methylprednisolone, Zithromax, and I was asked to see him on consultation. Minimal improvement since admission, patient continues to have cough, shortness of breath, cough is productive with whitish phlegm. No fever no chills no hemoptysis and no chest pain. Review of Systems Constitutional: Generalized weakness fatigue and malaise. Eyes: denies blurred vision, denies bulging eye, denies decreased vision Ears: Denies earache denies ear discharge Ears, nose, mouth and throat: Denies sore throat. Cardiovascular: Chronic dyspnea on exertion no chest pain, denies any palpi tation. Respiratory: As noted in HPI, mostly cough which is productive with whitish phlegm. Gastrointestinal: Denies abdominal pain, Denies diarrhea, Denies nausea, Denies vomiting Genitourinary: Denies any dysuria frequency urgency or hematuria. Musculoskeletal: Denies myalgias Musculoskeletal: Patient has chronic lower extremity swelling. No limitation in range of motion. Integumentary: Denies pruritus, Denies rash Neurological: Denies headache blurred vision or dizziness. Psychiatric: Denies anxiety, Denies depression Endocrine: Denies heat or cold intolerance Past Medical History Past Medical History: Atrial Fibrillation, Heart Failure, COPD, Diabetes Mellitus, Hyperlipidemia, Hypertension, Myocardial Infarction ([place]), Vascular Disorder Additional Past Medical History / Comment(s): COPD severe in nature, coronary artery disease with previous coronary stenting and previous myocardial infarctio n, [id number] diabetes mellitus type 2, peripheral neuropathy, peripheral vascular disease with previous stenting of the left lower extremity and previous vascular surgery in the right leg, frequent falls, previous history of sores in the lower extremity in the heels, chronic hypoxic respiratory failure maintained on oxygen at 3 L/m nasal cannula, restless leg syndrome, chronic back pain, abdominal wall hernia, bilateral cataracts, hyperlipidemia, hypertension, diabetes mellitus Last Myocardial Infarction Date:: unkn History of Any Multi-Drug Resistant Organisms: None Reported Past Surgical History: Hernia Repair, Joint Replacement, Orthopedic Surgery Additional Past Surgical History / Comment(s): Cardiac catheterization with coronary stenting, back surgery, appendectomy, hernia repair, left total hip replacement, right shoulder replacement, right rotator cuff repair, TURP, left lower extremity angioplasty and stenting for peripheral vascular disease, previous colonoscopies Past Anesthesia/Blood Transfusion Reactions: No Reported Reaction Past Psychological History: Anxiety, Depression Additional Psychological History / Comment(s): Pt resides with his spouse. He drives little. He wears oxygen at 3L/NC ATC. He has a glucometer and nebulizer. His spouse manages his medication. Smoking Status: Current every day smoker Past Alcohol Use History: None Reported Additional Past Alcohol Use History / Comment(s): Pt started smoking as a teen and is at least a ppd smoker. Past Drug Use History: None Reported - Past Family History Father Family Medical History: Myocardial Infarction ([place]) Additional Family Medical History / Comment(s): Father of a [place] at the age of 62 yrs. Mother Additional Family Medical History / Comment(s): Mother was a heavy smoker. Medications and Allergies Home Medications Medication Instructions Recorded Confirmed Type Albuterol Inhaler [Ventolin Hfa 1 - 2 puff INHALATION RT-Q4H PRN 07/27/17 03/18/19 History Inhaler] Albuterol Nebulized [Ventolin 2.5 mg INHALATION RT-QID 07/27/17 03/18/19 History Nebulized] Apixaban [Eliquis] 5 mg PO BID 07/27/17 03/18/19 History Aspirin 81 mg PO DAILY 07/27/17 03/18/19 History Atenolol [Tenormin] 25 mg PO DAILY 07/27/17 03/18/19 History DULoxetine HCL [Cymbalta] 60 mg PO HS 07/27/17 03/18/19 History Diltiazem HCl 15 mg PO Q8H 07/27/17 03/18/19 History Fenofibrate Nanocrystallized 145 mg PO DAILY 07/27/17 03/18/19 History [Tricor] Fluticasone/Vilanterol [Breo 1 puff INHALATION RT-DAILY 07/27/17 03/18/19 History Ellipta 200-25 Mcg INH] Furosemide [Lasix] 20 mg PO Q48H 07/27/17 03/18/19 History Gabapentin [Neurontin] 600 mg PO BID@0900,1700 07/27/17 03/18/19 History Isosorbide Mononitrate ER [Imdur] 30 mg PO DAILY 07/27/17 03/18/19 History Lisinopril [Zestril] 2.5 mg PO DAILY 07/27/17 03/18/19 History Morphine Sulfate ER [Ms Contin] 60 mg PO HS 07/27/17 03/18/19 History Morphine Sulfate Ir [MSIR] 7.5 mg PO DAILY PRN 07/27/17 03/18/19 History Morphine Sulfate Ir [MSIR] 7.5 mg PO HS 07/27/17 03/18/19 History Tiotropium [place] [Spiriva] 1 cap INHALATION RT-DAILY 07/27/17 03/18/19 History metFORMIN HCL [Glucophage] 1,000 mg PO BID 07/27/17 03/18/19 History rOPINIRole HCL [Requip] 0.25 mg PO HS 07/27/17 03/18/19 History Grace-C 1 tab PO DAILY 03/18/19 03/18/19 History Multivitamins, Thera [Multivitamin 1 tab PO DAILY 03/18/19 03/18/19 History (formulary)] busPIRone HCl [Buspar] 5 mg PO BID@0100,1300 03/18/19 03/18/19 History sitaGLIPtin [Januvia] 100 mg PO DAILY 03/18/19 03/18/19 History tiZANidine HCL 2 mg PO BID PRN 03/18/19 03/18/19 History Allergies Allergy/AdvReac Type Severity Reaction Status Date / Time Penicillins Allergy Rash/Hives Verified 03/18/19 20:39 Physical Exam Vitals: Vital Signs Temp Pulse Pulse Pulse Resp BP BP 03/19/19 12:27 100 03/19/19 12:14 104 H 03/19/19 12:13 97.7 F 100 19 134/75 03/19/19 08:00 98.9 F 94 22 122/72 03/19/19 05:31 96.9 F L 91 22 122/72 03/18/19 22:24 98.0 F 97 125/67 03/18/19 21:25 105 H 21 111/62 03/18/19 20:41 106 H 24 03/18/19 20:30 104 H 24 03/18/19 19:08 102 H 24 03/18/19 18:50 100 22 03/18/19 18:12 97.8 F 109 H 22 127/68 Pulse Ox 03/19/19 12:27 03/19/19 12:14 03/19/19 12:13 95 03/19/19 08:00 98 03/19/19 05:31 94 L 03/18/19 22:24 95 03/18/19 21:25 94 L 03/18/19 20:41 03/18/19 20:30 03/18/19 19:08 03/18/19 18:50 03/18/19 18:12 93 L Intake and Output 03/18/19 03/19/19 03/19/19 22:59 06:59 14:59 Intake Total 400 Balance 400 Intake: Intake, IV Titration 400 Amount Sodium Chloride 0.9% 1, 400 000 ml @ 50 mls/hr IV . Q20H [facility] Rx#:[id number] Other: Voiding Method Urinal # Voids 1 Weight 96.162 kg Physical Exam: Revealed a 78-year-old white male pleasant, in no distress. Head: Atraumatic normocephalic. HEENT:[Neck is supple.] [No neck masses.] [No thyromegaly.] [No JVD.] PERRLA, EOMI, no icterus. Chest: [Symmetrical chest expansion is, minimal crackles at the bases, no rhonchi and no wheezes. Cardiac Exam: Irregular irregular rhythm. [Normal S1 and S2, no S3 gallop, no murmur.] Abdomen: [Soft, nontender, no megaly, no rebound, no guarding, normal bowel sounds.] Extremities: Mild clubbing, trace of bipedal edema, no cyanosis.] Neurological Exam: Alert and oriented 3. [No focal neurologic deficit.] Psychiatric: Normal mood, affect and normal mental status examination. Skin: No rashes. Results - Laboratory Findings CBC and BMP: 03/18/19 18:34 03/18/19 18:34 Abnormal lab findings: Abnormal Labs 03/18/19 03/18/19 03/18/19 18:34 18:34 19:00 WBC 11.7 H Neutrophils # 10.1 H Lymphocytes # 0.4 L Basophils # 0.4 H BUN 22 H Glucose 152 H POC Glucose (mg/dL) Urine Protein Trace H Influenza Type A RNA 03/18/19 03/19/19 03/19/19 19:00 07:03 11:48 WBC Neutrophils # Lymphocytes # Basophils # BUN Glucose POC Glucose (mg/dL) 269 H 279 H Urine Protein Influenza Type A RNA Detected H - Diagnostic Findings Chest x-ray: image reviewed (Chest x-ray was reviewed, and compared to previous chest x-ray, the findings of interstitial edema/infiltrates are new.) Assessment and Plan Assessment: Impression: 1 acute influenza A infection. 2 acute on chronic hypoxic respiratory failure secondary to COPD, acute influenza A infection, and possibly some component of chronic systolic congestive heart failure. 3 obesity with a BMI of 32 4 suspected obstructive sleep apnea with poor sleep quality and poor ability to maintain sleep and frequent nocturnal arousals and chronic hypersomnia 5 peripheral neuropathy, most likely secondary to diabetes. 6 peripheral vascular disease 7 hypertension 8 hyperlipidemia 9 diabetes mellitus, type II with diabetic neuropathy. 10 chronic atrial fibrillation 11 severe systolic dysfunction, ejection fraction 35%. 12 nicotine dependence syndrome, patient continues to smoke. Patient was counseled regarding smoking cessation. 13 possible interstitial lung disease, hence I will recommend a high-resolution CT of the chest. Recommendation: Continue present treatment plan including Tamiflu, Bronchodilators, Solu-Medrol, Antibiotics empirically, Resume home meds, Continue oxygen, patient is known to have chronic hypoxic respiratory failure Counseled regarding smoking cessation High-resolution CT of the chest to be done. Consider gentle diuresis. We'll continue to follow Time with Patient: Greater than 30
[2019-03-19] MEDS ORDERED: FUROSEMIDE 20 MG TAB PO SCH ×2 (16:00→20:00)
[2019-03-19] MEDS: NICOTINE 21MG/24HR PATCH TRANSDERM SCH (16:06)
[2019-03-19 17:09] LABS: Glucose,Whole Blood 366 mg/dL (75-99)
[2019-03-19] MEDS ORDERED: ALBUTEROL NEBULIZED 2.5 MG/3 ML INHALATION PRN (19:50)
[2019-03-19] MEDS ORDERED: tiZANidine 4 MG TAB PO PRN (19:50)
[2019-03-19 20:11] LABS: Glucose,Whole Blood 331 mg/dL (75-99)
[2019-03-19] MEDS: INSULIN ASPART (NovoLOG) 100 UNIT/ML VIAL SQ SCH (21:21)
[2019-03-19] MEDS: AZITHROMYCIN 500 MG TAB PO SCH (21:21)
[2019-03-19] MEDS: DULoxetine HCL 60 MG CAPSULE.DR PO SCH (21:21)
[2019-03-19] MEDS: DILTIAZEM ORAL 30 MG TAB PO SCH (21:21)
[2019-03-19] MEDS: metFORMIN 500 MG TAB PO SCH (21:22)
[2019-03-19] MEDS: MORPHINE SULFATE ER 60 MG TABLET PO SCH (21:22)
[2019-03-19] MEDS: MORPHINE SULFATE IR 15 MG TABLET PO SCH (21:23)
[2019-03-19] MEDS ORDERED: OSELTAMIVIR 60 MG/10 ML ORAL SYRINGE PO ONE (21:45)
[2019-03-19 22:37] LABS: Glucose,Whole Blood 267 mg/dL (75-99)
[2019-03-19] MEDS: SODIUM CHLORIDE 0.9% 1,000 ML IV SCH (22:39)
[2019-03-20] MEDS: methylPREDNISolone SOD SUCCI 125 MG/2 ML VIAL IV SCH ×4 (00:23→17:33)
[2019-03-20] MEDS: SODIUM CHLORIDE 0.9% 1,000 ML IV SCH (00:23)
[2019-03-20] MEDS: busPIRone HCl 5 MG TAB PO SCH ×2 (00:23→12:16)
[2019-03-20] MEDS: DILTIAZEM ORAL 30 MG TAB PO SCH ×3 (04:24→21:36)
[2019-03-20 07:06] LABS: Glucose,Whole Blood 226 mg/dL (75-99)
--- NOTE | 2019-03-20 07:09 | P.PN ---
Subjective This is a pleasant 78 years old male with past medical history of heart failure, atrial fibrillation, COPD, diabetes mellitus, hypertension, hyperlipidemia. Presents because of dyspnea and cough with whitish phlegm of 2 days' duration associated with some congestion but no chest pain Patient smokes however he could not clarify. Patient is counseled and he was nicotine patch to quit vitals are stable and patient is afebrile however he is in the 4 L oxygen with saturation of 95%. Labs showing mild leukocytosis of 11.7 K. Sugar is slightly elevated at 279. Troponin is negative. Rest of BMP and liver enzymes are unremarkable. Urine is negative. Influenza is positive. EKG showing A. fib with heart rate of 95 . Chest x-ray showing chronic changes without significant change per radiologist patient was started on Tamiflu and Solu-Medrol and bronchodilators, patient was started on Zithromax 03/20/2019 Patient is awake.he is still tachypenic, and mildly tachycardic, he thinks he is improving a little bit. he denies chest pain , pt is not sure how much oxygen he take at home . but he confirms to me he is on oxygen. labs from today are still pending he wants to go home today i explained to him he is [facility] , and also i explained to him the risks of leaving AMA including but not limited to the risks of resp failure ,worsening infection , organ failure or dysfunction and/or pulmonary team input is appreciated , they recommend do ct scan of the chest without contrast , pt informed pt can walk with a walker with no problem as he states at baseline Review of systems CONSTITUTIONAL: No fever, no malaise, no fatigue. HEENT: No recent visual problems or hearing problems. Denied any sore throat. CARDIOVASCULAR: No orthopnea, PND, no palpitations, no syncope. PULMONARY: No shortness of breath, no cough, no hemoptysis. GASTROINTESTINAL: No diarrhea, no nausea, no vomiting, no abdominal pain. Normoactive bowel sounds. NEUROLOGICAL: No headaches, no weakness, no numbness. HEMATOLOGICAL: Denies any bleeding or petechiae. GENITOURINARY: Denies any burning micturition, frequency, or urgency. MUSCULOSKELETAL/RHEUMATOLOGICAL: Denies any joint pain, swelling, or any muscle pain. ENDOCRINE: Denies any polyuria or polydipsia. Active Medications Generic Name Dose Route Start Last Admin Trade Name Freq PRN Reason Stop Dose Admin Albuterol Sulfate 2.5 mg 03/19/19 19:50 Ventolin Nebulized INHALATION RT-Q4H PRN Wheezing Albuterol Sulfate 2.5 mg 03/19/19 20:00 03/19/19 22:09 Ventolin Nebulized INHALATION 2.5 mg RT-QID TE Administration Apixaban 5 mg 03/18/19 21:00 03/19/19 21:21 Eliquis PO 5 mg BID TE Administration Aspirin 81 mg 03/20/19 09:00 Aspirin PO DAILY [facility] Atenolol 25 mg 03/20/19 09:00 Tenormin PO DAILY [facility] Azithromycin 500 mg 03/19/19 21:00 03/19/19 21:21 Zithromax PO 500 mg HS TE Administration Budesonide/Formoterol Fumarate 2 puff 03/20/19 08:00 Symbicort 160-4.5 Mcg Inhaler INHALATION RT-BID [facility] Buspirone HCl 5 mg 03/20/19 01:00 03/20/19 00:23 Buspar PO 5 mg BID@0100,1300 [facility] Administration Diltiazem HCl 15 mg 03/19/19 20:00 03/20/19 04:24 Cardizem Oral PO 15 mg Q8H TE Administration Duloxetine HCl 60 mg 03/19/19 21:00 03/19/19 21:21 Cymbalta PO 60 mg HS TE Administration Fenofibrate 160 mg 03/20/19 09:00 Lofibra PO DAILY [facility] Furosemide 20 mg 03/19/19 20:00 03/19/19 21:24 Lasix PO Not Given Q48H [facility] Gabapentin 600 mg 03/19/19 00:33 03/19/19 16:05 Neurontin PO 600 mg BID@0900,1700 [facility] Administration Sodium Chloride 1,000 mls @ 50 mls/hr 03/18/19 20:15 03/20/19 00:23 Saline 0.9% IV 50 mls/hr .Q20H TE Administration Insulin Aspart 0 unit 03/19/19 21:00 03/19/19 21:21 Novolog SQ 6 unit ACHS TE Administration Protocol Ipratropium [place] 0.5 mg 03/20/19 08:00 Atrovent Nebulized INHALATION RT-DAILY [facility] Isosorbide Mononitrate 30 mg 03/20/19 09:00 Imdur PO DAILY [facility] Linagliptin 5 mg 03/20/19 09:00 Tradjenta PO DAILY [facility] Lisinopril 2.5 mg 03/20/19 09:00 Zestril PO DAILY [facility] Metformin HCl 1,000 mg 03/19/19 21:00 03/19/19 21:22 Glucophage PO 1,000 mg BID TE Administration Methylprednisolone Sodium Succinate 60 mg 03/19/19 00:00 03/20/19 06:05 Solu-Medrol IV 60 mg Q6HR TE Administration Morphine Sulfate 2 mg 03/18/19 21:02 03/19/19 13:07 Morphine Sulfate (Inj) IVP 2 mg Q6H PRN Administration Pain/Discomfort Morphine Sulfate 60 mg 03/19/19 21:00 03/19/19 21:22 Ms Contin PO 60 mg HS [facility] Administration Morphine Sulfate 7.5 mg 03/20/19 09:00 Msir PO DAILY PRN Breakthrough Pain Morphine Sulfate 7.5 mg 03/19/19 21:00 03/19/19 21:23 Msir PO 7.5 mg HS TE Administration Multivitamins 1 each 03/20/19 09:00 Theragran PO DAILY [facility] Nicotine 1 patch 03/19/19 12:30 03/19/19 16:06 Habitrol 21mg/24hr Patch TRANSDERM 1 patch DAILY [facility] Administration Oseltamivir Phosphate 75 mg 03/20/19 09:00 Tamiflu PO 03/23/19 09:01 Q12HR [facility] Ropinirole HCl 0.25 mg 03/19/19 01:00 03/19/19 21:24 Requip PO 0.25 mg HS [facility] Administration Tizanidine HCl 2 mg 03/19/19 19:50 Zanaflex PO BID PRN Muscle Spasm Objective - Vital Signs Vital signs: Vital Signs Temp 97.3 F L 03/20/19 05:48 Pulse 101 H 03/20/19 05:48 Resp 22 03/20/19 05:48 BP 125/76 03/20/19 05:48 Pulse Ox 92 L 03/20/19 05:48 Intake & Output 03/19/19 03/20/19 03/20/19 18:59 06:59 18:59 Intake Total 400 600 Output Total 350 Balance 400 250 Intake: Intake, IV Titration 400 600 Amount Sodium Chloride 0.9% 1, 400 600 000 ml @ 50 mls/hr IV . Q20H [facility] Rx#:[id number] Output: Urine 350 Other: Voiding Method Urinal Urinal # Voids 1 - Exam GENERAL: The patient is alert and oriented x3, not in any acute distress. Well developed, well nourished. HEENT: Pupils are round and equally reacting to light. EOMI. No scleral icterus. No conjunctival pallor. Normocephalic, atraumatic. No pharyngeal erythema. No thyromegaly. CARDIOVASCULAR: S1 and S2 present. No murmurs, rubs, or gallops. PULMONARY: Chest is clear to auscultation, no wheezing or crackles. ABDOMEN: Soft, nontender, nondistended, normoactive bowel sounds. No palpable organomegaly. MUSCULOSKELETAL: No joint swelling or deformity. EXTREMITIES: No cyanosis, clubbing, or pedal edema. NEUROLOGICAL: Gross neurological examination did not reveal any focal deficits. SKIN: No rashes. no petechiae. - Labs CBC & Chem 7: 03/18/19 18:34 03/18/19 18:34 Labs: Abnormal Lab Results - Last 24 Hours (Table) 03/19/19 03/19/19 03/19/19 Range/Units 07:03 11:48 17:08 POC Glucose (mg/dL) 269 H 279 H 366 H (75-99) mg/dL 03/19/19 03/19/19 Range/Units 20:10 22:28 POC Glucose (mg/dL) 331 H 267 H (75-99) mg/dL Assessment and Plan Assessment: Positive influenza type A COPD, with acute exacerbation Congestive heart failure Chronic Atrial fibrillation Nicotine dependence Hypertension Diabetes mellitus Hyperlipidemia Diabetic neuropathy History of frequent falls Chronic hypoxic respiratory failure on 3 L/m oxygen via NC This is leg syndrome Chronic back pain on bilateral cataract Plan: This is a pleasant 78 there's old male who presents with influenza and COPD. Under consult. Continue with steroids. Continue with Tamiflu and Zithromax. Continue with bronchodilator and oxygen as needed. ct of the chest is pending Labs and medication were reviewed.. Continue same treatment. Continue with symptomatic treatment. Resume home medication. Monitor lytes and vitals. DVT and GI prophylaxis. Further recommendations of the clinical course of the patient DVT prophylaxis: Subcutaneous heparin GI Prophylaxis: Pepcid PT/OT: Pending Prognosis is guarded discussed with staff pt advised on leaving the hospital he should see his doctor lavell
[2019-03-20 07:33] LABS: Basophils % (A) 0 %; Eosinophils % (A) 0 %; HCT 46.5 % (39.0-53.0); HGB 15.1 gm/dL (13.0-17.5); Lymphocytes # (A) 0.5 k/uL (1.0-4.8); Lymphocytes % (A) 6 %; MCH 31.2 pg (25.0-35.0); MCHC 32.5 g/dL (31.0-37.0); MCV 96.1 fL (80.0-100.0); Mean Platelet Volume 8.4; Monocytes # (A) 0.4 k/uL (0-1.0); Monocytes % (A) 4 %; Neutrophils # (A) 7.9 k/uL (1.3-7.7); Neutrophils % (A) 89 %; Platelet Count 256 k/uL (150-450); RBC 4.85 m/uL (4.30-5.90); RDW 12.4 % (11.5-15.5); WBC 8.9 k/uL (3.8-10.6)
[2019-03-20 07:55] LABS: African American GFR (CKD) >90 (>60 ml/min/1.73 sqM); Anion Gap 8 mmol/L; Blood Urea Nitrogen 30 mg/dL (9-20); Calcium 9.5 mg/dL (8.4-10.2); Carbon Dioxide 31 mmol/L (22-30); Chloride 100 mmol/L (98-107); Glucose 210 mg/dL (74-99); Non-African American GFR(CKD) 87 (>60 ml/min/1.73 sqM); Potassium 5.1 mmol/L (3.5-5.1); Sodium 139 mmol/L (137-145)
[2019-03-20] MEDS ORDERED: ESTER C PO SCH (09:00)
[2019-03-20] MEDS ORDERED: MORPHINE SULFATE IR 15 MG TABLET PO PRN (09:00)
[2019-03-20] MEDS: INSULIN ASPART (NovoLOG) 100 UNIT/ML VIAL SQ SCH ×4 (09:32→21:36)
[2019-03-20] MEDS: APIXABAN 5 MG TAB PO SCH ×2 (09:32→21:36)
[2019-03-20] MEDS: FENOFIBRATE 160 MG TAB PO SCH (09:33)
[2019-03-20] MEDS: ATENOLOL 25 MG TAB PO SCH (09:33)
[2019-03-20] MEDS: ASPIRIN 81 MG PO SCH (09:33)
[2019-03-20] MEDS: MULTIVITAMINS, THERA 1 EACH TAB PO SCH (09:33)
[2019-03-20] MEDS: metFORMIN 500 MG TAB PO SCH ×2 (09:33→21:37)
[2019-03-20] MEDS: ISOSORBIDE MONONITRATE ER 30 MG TAB.ER.24H PO SCH (09:33)
[2019-03-20] MEDS: NICOTINE 21MG/24HR PATCH TRANSDERM SCH (09:33)
[2019-03-20] MEDS: LINAGLIPTIN 5 MG TABLET PO SCH (09:33)
[2019-03-20] MEDS: GABAPENTIN 300 MG CAP PO SCH ×2 (09:33→17:33)
[2019-03-20] MEDS: LISINOPRIL 2.5 MG TAB PO SCH (09:33)
[2019-03-20] MEDS: OSELTAMIVIR 60 MG/10 ML ORAL SYRINGE PO SCH ×2 (09:43→22:13)
--- NOTE | 2019-03-20 09:52 | CT ---
EXAMINATION TYPE: CT chest wo con DATE OF EXAM: 03/20/2019 COMPARISON: None HISTORY: ild/pulmonary fibrosis CT DLP: 506.8 mGycm. Automated Exposure Control for Dose Reduction was Utilized. TECHNIQUE: CT scan of the thorax is performed without IV contrast. FINDINGS: LUNGS: Emphysematous changes are noted and there is interlobular septal thickening particularly in th e upper lobes compatible with chronic interstitial lung disease. Multiple areas of consolidation are suggestive of atelectasis. Additionally, there are sub-5 mm nodule seen within both upper lobes which are too small to characterize could be postinflammatory although neoplastic process not excluded. No pneumothorax. No pleural effusion. No large area of consolidation.. Calcified granuloma in the anter ior portion of the left lower lobe axial image 40 MEDIASTINUM: Lack of IV contrast is noted to limit evaluation for mediastinal and especially hilar ad enopathy. There are no definitive greater than 1 cm hilar or mediastinal lymph nodes. The heart is pr ominent in size and there is atherosclerotic change of the aorta and dense coronary artery calcificat ion. There are several calcified densities in the hilum and mediastinum likely related to calcified s mall lymph nodes. OTHER: 4.6 cm lesion in the liver measures 19 Hounsfield units suggestive of hepatic cyst. There is h ypertrophic and degenerative change of the spine and atherosclerotic change of the aorta.. Extensive artifact from the right shoulder prostheses obscures portions of the right lung apex. IMPRESSION: 1. COPD with findings compatible with interstitial pulmonary fibrosis. Emphysematous changes most mar ked in the upper lung zone. 2. Multinodular 5 mm or less density seen scattered throughout both lungs. Some of which are most not ably seen in the right upper lobe may represent a tree-in-bud pattern and could be inflammatory or re lated to mycobacterium correlate clinically. This can occasionally be seen with granulomatous disease or neoplastic process correlate clinically. 3. Dense coronary artery calcification.
[2019-03-20] MEDS: ALBUTEROL NEBULIZED 2.5 MG/3 ML INHALATION SCH ×4 (10:37→20:21)
[2019-03-20] MEDS: IPRATROPIUM 0.5 MG/2.5 ML NEBU INHALATION SCH (10:40)
[2019-03-20] MEDS: SYMBICORT 160-4.5 MCG INHALER INHALATION SCH ×2 (10:41→20:21)
[2019-03-20 11:53] LABS: Glucose,Whole Blood 286 mg/dL (75-99)
--- NOTE | 2019-03-20 12:36 | P.PN ---
Subjective Progress Note Date: 03/20/19 Principal diagnosis: Acute on chronic hypoxic respiratory failure secondary to COPD exacerbation, influenza A infection, and chronic systolic congestive heart failure This is a 78-year-old white male with history of gold stage II COPD, FEV1 is 59%, however the patient is O2 dependent, not prednisone dependent, and he normally sees Dr. Velez for his chronic hypoxic respiratory failure and underlying COPD. He was last seen in our office on 10/14/2018. His other medical problems include history of chronic systolic congestive heart failure, chronic atrial fibrillation, chronic hypoxic respiratory failure, insomnia, peripheral vessel occlusive disease, diabetes with diabetic neuropathy. Patient presented to the ER on 03/18/2019, he was complaining of 2 days history of in creased shortness of breath, productive cough with whitish phlegm. Influenza screen was positive. Chest x-ray showed diffuse interstitial lung disease, felt that the patient may have underlying pulmonary fibrosis. Although looking at the notes from the office, there was no mention of interstitial lung disease on this patient before. Patient sees Dr. Velez mostly for moderate severe COPD. The findings on the present chest x-ray were not present on previous chest x-ray dated Aug 06 2017, hence I believe the findings are mostly findings of chronic systolic congestive heart failure. Although may consider a high-resolution CT of the chest in a.m. Patient was treated with Tamiflu, bronchodilators, methylprednisolone, Zithromax, and I was asked to see him on consultation. Minimal improvement since admission, patient continues to have cough, shortness of breath, cough is productive with whitish phlegm. No fever no chills no hemoptysis and no chest pain. Patient was reevaluated today on 03/20/2019, feeling a bit better, breathing easier, less cough and less wheezing less shortness of breath. CT of the chest showed COPD, and mild interstitial pulmonary fibrosis. Minimal inflammatory changes noted in the lungs. And multiple nodules which have been addressed in the past by Dr. Grier. No major change compared to previous CT of the chest. CBC today showed normal WBC count normal hemoglobin. Electrolytes are basically normal. Renal profile is normal. Clinically the patient is feeling better, and if he continues to do well over the next 24-48 hours, patient could be cons idered for discharge planning. He remains on bronchodilators, steroids, and Tamiflu as well as Zithromax Objective - Vital Signs Vital signs: Vital Signs Temp 98.9 F 03/20/19 12:02 Pulse 81 03/20/19 12:02 Resp 19 03/20/19 12:02 BP 125/61 03/20/19 12:02 Pulse Ox 95 03/20/19 12:02 Intake & Output 03/19/19 03/20/19 03/20/19 18:59 06:59 18:59 Intake Total 400 600 Output Total 350 Balance 400 250 Intake: Intake, IV Titration 400 600 Amount Sodium Chloride 0.9% 1, 400 600 000 ml @ 50 mls/hr IV . Q20H [facility] Rx#:[id number] Output: Urine 350 Other: Voiding Method Urinal Urinal Urinal # Voids 1 - Exam Physical Exam: Revealed a 78-year-old white male pleasant, in no distress. Head: Atraumatic normocephalic. HEENT:[Neck is supple.] [No neck masses.] [No thyromegaly.] [No JVD.] PERRLA, EOMI, no icterus. Chest: [Symmetrical chest expansion is, minimal crackles at the bases, no rhonchi and no wheezes. Cardiac Exam: Irregular irregular rhythm. [Normal S1 and S2, no S3 gallop, no murmur.] Abdomen: [Soft, nontender, no megaly, no rebound, no guarding, normal bowel sounds.] Extremities: Mild clubbing, trace of bipedal edema, no cyanosis.] Neurological Exam: Alert and oriented 3. [No focal neurologic deficit.] Psychiatric: Normal mood, affect and normal mental status examination. Skin: No rashes. - Labs CBC & Chem 7: 03/20/19 06:40 03/20/19 06:40 Labs: Abnormal Lab Results - Last 24 Hours (Table) 03/19/19 03/19/19 03/19/19 Range/Units 17:08 20:10 22:28 Neutrophils # (1.3-7.7) k/uL Lymphocytes # (1.0-4.8) k/uL Carbon Dioxide (22-30) mmol/L BUN (9-20) mg/dL Glucose (74-99) mg/dL POC Glucose (mg/dL) 366 H 331 H 267 H (75-99) mg/dL 03/20/19 03/20/1903/20/19 Range/Units 06:40 06:40 07:05 Neutrophils # 7.9 H (1.3-7.7) k/uL Lymphocytes # 0.5 L (1.0-4.8) k/uL Carbon Dioxide 31 H (22-30) mmol/L BUN 30 H (9-20) mg/dL Glucose 210 H (74-99) mg/dL POC Glucose (mg/dL) 226 H (75-99) mg/dL 03/20/19 Range/Units 11:42 Neutrophils # (1.3-7.7) k/uL Lymphocytes # (1.0-4.8) k/uL Carbon Dioxide (22-30) mmol/L BUN (9-20) mg/dL Glucose (74-99) mg/dL POC Glucose (mg/dL) 286 H (75-99) mg/dL Assessment and Plan Assessment: Impression: 1 acute influenza A infection. 2 acute on chronic hypoxic respiratory failure secondary to COPD, acute influenza A infection, and possibly some component of chronic systolic congestive heart failure. 3 obesity with a BMI of 32 4 suspected obstructive sleep apnea with poor sleep quality and poor ability to maintain sleep and frequent nocturnal arousals and chronic hypersomnia 5 peripheral diabetic neuropathy 6 peripheral vascular disease 7 hypertension 8 hyperlipidemia 9 diabetes mellitus, type II with diabetic neuropathy. 10 chronic atrial fibrillation 11 severe systolic dysfunction, ejection fraction 35%. 12 nicotine dependence syndrome, patient continues to smoke. Patient was cou nseled regarding smoking cessation. 13 mild interstitial lung disease as noted on CT of the chest. Recommendation: Continue Tamiflu, Continue Bronchodilators, Continue Solu-Medrol, possibly transition to oral prednisone in the next 24 hours. Continue Antibiotics empirically, Continue home meds, Continue oxygen, patient is known to have chronic hypoxic respiratory failure Counseled regarding smoking cessation Reviewed his high-resolution CT of the chest and compared to previous CT. gentle diuresis. We'll continue to follow Time with Patient: Less than 30
[2019-03-20 17:19] LABS: Glucose,Whole Blood 290 mg/dL (75-99)
[2019-03-20] MEDS: MORPHINE SULFATE 2 MG/ML SYRINGE IVP PRN (17:34)
[2019-03-20 21:10] LABS: Glucose,Whole Blood 283 mg/dL (75-99)
[2019-03-20] MEDS: AZITHROMYCIN 500 MG TAB PO SCH (21:36)
[2019-03-20] MEDS: DULoxetine HCL 60 MG CAPSULE.DR PO SCH (21:36)
[2019-03-20] MEDS: MORPHINE SULFATE ER 60 MG TABLET PO SCH (21:37)
[2019-03-20] MEDS: MORPHINE SULFATE IR 15 MG TABLET PO SCH (21:37)
[2019-03-21] MEDS: busPIRone HCl 5 MG TAB PO SCH ×2 (00:46→12:55)
[2019-03-21] MEDS: methylPREDNISolone SOD SUCCI 125 MG/2 ML VIAL IV SCH ×3 (00:46→12:56)
[2019-03-21] MEDS: DILTIAZEM ORAL 30 MG TAB PO SCH ×2 (04:33→12:55)
[2019-03-21 04:39] VITALS: RESP 18
[2019-03-21 06:57] LABS: Glucose,Whole Blood 280 mg/dL (75-99)
[2019-03-21] MEDS: ALBUTEROL NEBULIZED 2.5 MG/3 ML INHALATION SCH ×3 (07:00→15:54)
[2019-03-21] MEDS: IPRATROPIUM 0.5 MG/2.5 ML NEBU INHALATION SCH (07:00)
[2019-03-21] MEDS: SYMBICORT 160-4.5 MCG INHALER INHALATION SCH (07:00)
--- NOTE | 2019-03-21 08:18 | P.PN ---
Subjective This is a pleasant 78 years old male with past medical history of heart failure, atrial fibrillation, COPD, diabetes mellitus, hypertension, hyperlipidemia. Presents because of dyspnea and cough with whitish phlegm of 2 days' duration associated with some congestion but no chest pain Patient smokes however he could not clarify. Patient is counseled and he was nicotine patch to quit vitals are stable and patient is afebrile however he is in the 4 L oxygen with saturation of 95%. Labs showing mild leukocytosis of 11.7 K. Sugar is slightly elevated at 279. Troponin is negative. Rest of BMP and liver enzymes are unremarkable. Urine is negative. Influenza is positive. EKG showing A. fib with heart rate of 95 . Chest x-ray showing chronic changes without significant change per radiologist patient was started on Tamiflu and Solu-Medrol and bronchodilators, patient was started on Zithromax 03/20/2019 Patient is awake.he is still tachypenic, and mildly tachycardic, he thinks he is improving a little bit. he denies chest pain , pt is not sure how much oxygen he take at home . but he confirms to me he is on oxygen. labs from today are still pending he wants to go home today i explained to him [facility] , and also i explained to him the risks of leaving AMA including but not limited to the risks of resp failure ,worsening infection , organ failure or dysfunction and/or pulmonary team input is appreciated , they recommend do ct scan of the chest without contrast , pt informed pt can walk with a walker with no problem as he states at baseline 03/21/2019 Patient is improving gradually with regarding his dyspnea and coughing. Patient denies chest pain. But stable and he is saturating 95% on 4 L. Glucose 250- 290. Labs from today are pending. Pulmonary team R following the case closely. CAT scan from yesterday reviewed Pulmonary team R following the case.. He remains on Eliquis, Zithromax, Tamiflu, Solu-Medrol and gentle hydration. Objective - Vital Signs Vital signs: Vital Signs Temp 97.0 F L 03/21/19 04:30 Pulse 92 03/21/19 07:17 Resp 18 03/21/19 04:30 BP 113/68 03/21/19 04:30 Pulse Ox 95 03/21/19 04:30 Intake & Output 03/20/19 03/21/19 03/21/19 18:59 06:59 18:59 Intake Total 1000 Output Total 150 Balance 1000 -150 Intake: Intake, IV Titration 400 Amount Sodium Chloride 0.9% 1, 400 000 ml @ 50 mls/hr IV . Q20H [facility] Rx#:[id number] Oral 600 Output: Urine 150 Other: Voiding Method Urinal Urinal # Voids 2 - Exam GENERAL: The patient is alert and oriented x3, not in any acute distress. Well developed, well nourished. HEENT: Pupils are round and equally reacting to light. EOMI. No scleral icterus. No conjunctival pallor. Normocephalic, atraumatic. No pharyngeal erythema. No thyromegaly. CARDIOVASCULAR: S1 and S2 present. No murmurs, rubs, or gallops. PULMONARY: Chest is clear to auscultation, no wheezing or crackles. ABDOMEN: Soft, nontender, nondistended, normoactive bowel sounds. No palpable organomegaly. MUSCULOSKELETAL: No joint swelling or deformity. EXTREMITIES: No cyanosis, clubbing, or pedal edema. NEUROLOGICAL: Gross neurological examination did not reveal any focal deficits. SKIN: No rashes. no petechiae. - Labs CBC & Chem 7: 03/20/19 06:40 03/20/19 06:40 Labs: Abnormal Lab Results - Last 24 Hours (Table) 03/20/19 03/20/19 03/20/19 Range/Units 11:42 17:17 21:08 POC Glucose (mg/dL) 286 H 290 H 283 H (75-99) mg/dL 03/21/19 Range/Units 06:56 POC Glucose (mg/dL) 280 H (75-99) mg/dL Assessment and Plan Assessment: Positive influenza type A COPD, with acute exacerbation Congestive heart failure Chronic Atrial fibrillation Nicotine dependence Hypertension Diabetes mellitus Hyperlipidemia Diabetic neuropathy History of frequent falls Chronic hypoxic respiratory failure on 3 L/m oxygen via [place] This is leg syndrome Chronic back pain on bilateral cataract Plan: This is a pleasant 78 there's old male who presents with influenza and COPD. Under consult. Continue with steroids. Continue with Tamiflu and Zithromax. Continue with bronchodilator and oxygen as needed. ct of the chest is pending Labs and medication were reviewed.. Continue same treatment. Continue with symptomatic treatment. Resume home medication. Monitor lytes and vitals. DVT and GI prophylaxis. Further recommendations of the clinical course of the patient DVT prophylaxis: Subcutaneous heparin GI Prophylaxis: Pepcid PT/OT: Pending Prognosis is guarded discussed with staff pt advised on leaving the hospital he should see his doctor lavell
[2019-03-21] MEDS: MULTIVITAMINS, THERA 1 EACH TAB PO SCH (08:41)
[2019-03-21] MEDS: GABAPENTIN 300 MG CAP PO SCH ×2 (08:42→16:42)
[2019-03-21] MEDS: metFORMIN 500 MG TAB PO SCH (08:42)
[2019-03-21] MEDS: LISINOPRIL 2.5 MG TAB PO SCH (08:42)
[2019-03-21] MEDS: APIXABAN 5 MG TAB PO SCH (08:42)
[2019-03-21] MEDS: ISOSORBIDE MONONITRATE ER 30 MG TAB.ER.24H PO SCH (08:42)
[2019-03-21] MEDS: ASPIRIN 81 MG PO SCH (08:42)
[2019-03-21] MEDS: INSULIN ASPART (NovoLOG) 100 UNIT/ML VIAL SQ SCH ×2 (08:43→12:56)
[2019-03-21] MEDS: FENOFIBRATE 160 MG TAB PO SCH (08:43)
[2019-03-21] MEDS: ATENOLOL 25 MG TAB PO SCH (08:43)
[2019-03-21] MEDS: LINAGLIPTIN 5 MG TABLET PO SCH (08:43)
[2019-03-21] MEDS: SODIUM CHLORIDE 0.9% 1,000 ML IV SCH (08:45)
[2019-03-21] MEDS: NICOTINE 21MG/24HR PATCH TRANSDERM SCH (08:46)
[2019-03-21] MEDS ORDERED: OSELTAMIVIR 75 MG CAP PO SCH (09:00)
[2019-03-21 09:17] LABS: African American GFR (CKD) >90 (>60 ml/min/1.73 sqM); Anion Gap 10 mmol/L; Blood Urea Nitrogen 31 mg/dL (9-20); Calcium 9.5 mg/dL (8.4-10.2); Carbon Dioxide 29 mmol/L (22-30); Chloride 97 mmol/L (98-107); Glucose 266 mg/dL (74-99); Non-African American GFR(CKD) 84 (>60 ml/min/1.73 sqM); Sodium 136 mmol/L (137-145)
[2019-03-21 11:45] LABS: Glucose,Whole Blood 283 mg/dL (75-99)
[2019-03-21 11:53] VITALS: BP 116/71; TEMP 97
--- NOTE | 2019-03-21 14:58 | P.PN ---
Subjective Progress Note Date: 03/21/19 Principal diagnosis: Chronic hypoxic respiratory failure secondary to COPD exacerbation, influenza A infection, and chronic systolic CHF This is a 78-year-old white male with history of gold stage II COPD, FEV1 is 59%, however the patient is O2 dependent, not prednisone dependent, and he normally sees Dr. Velez for his chronic hypoxic respiratory failure and underlying COPD. He was last seen in our office on 10/14/2018. His other medical problems include history of chronic systolic congestive heart failure, chronic atrial fibrillation, chronic hypoxic respiratory failure, insomnia, peripheral vessel occlusive disease, diabetes with diabetic neuropathy. Patient presented to the ER on 03/18/2019, he was complaining of 2 days history of increased shortness of breath, productive cough with whitish phlegm. Influenza screen was positive. Chest x-ray showed diffuse interstitial lung disease, felt that the patient may have underlying pulmonary fibrosis. Although looking at the notes from the office, there was no mention of interstitial lung disease on this patient before. Patient sees Dr. Velez mostly for moderate severe COPD. The findings on the present chest x-ray were not present on previous chest x-ray dated Aug 06 2017, hence I believe the findings are mostly findings of chronic systolic congestive heart failure. Although may consider a high-resolution CT of the chest in a.m. Patient was treated with Tamiflu, bronchodilators, methylprednisolone, Zithromax, and I was asked to see him on consultation. Minimal improvement since admission, patient continues to have cough, shortness of breath, cough is productive with whitish phlegm. No fever no chills no hemoptysis and no chest pain. Patient was reevaluated today on 03/20/2019, feeling a bit better, breathing easier, less cough and less wheezing less shortness of breath. CT of the chest showed COPD, and mild interstitial pulmonary fibrosis. Minimal inflammatory changes noted in the lungs. And multiple nodules which have been addressed in the past by Dr. Grier. No major change compared to previous CT of the chest. CBC today showed normal WBC count normal hemoglobin. Electrolytes are basically normal. Renal profile is normal. Clinically the patient is feeling better, and if he continues to do well over the next 24-48 hours, patient could be considered for discharge planning. He remains on bronchodilators, steroids, and Tamiflu as well as Zithromax On 03/21/2019 patient seen in follow-up on medical surgical floor. Doing well, no acute complaints, room air pulse ox is 92%, he states his breathing has improved, he is afebrile, hemodynamically stable, sounds reveal diminished breath sounds, with minimal wheezes, patient is on a course of Tamiflu, Zithromax, he is on oral Lasix, is on nebulized bronchodilators and IV steroids. CT chest showed COPD with interstitial pulmonary fibrosis, and multinodular 5 mg less density densities seen scattered throughout both lungs most notably in the right upper lobe that could represent inflammatory changes or mycobacterium. And dense coronary artery calcification, clinically patient remains stable, tolerating ambulation within the room, no acute issues overnight. No fever or chills. Patient is being considered for discharge home today Objective - Vital Signs Vital signs: Vital Signs Temp 97 F L 03/21/19 11:53 Pulse 70 03/21/19 11:53 Resp 18 03/21/19 11:53 BP 116/71 03/21/19 11:53 Pulse Ox 92 L 03/21/19 11:53 Intake & Output 03/20/19 03/21/19 03/21/19 18:59 06:59 18:59 Intake Total 1000 Output Total 150 Balance 1000 -150 Intake: Intake, IV Titration 400 Amount Sodium Chloride 0.9% 1, 400 000 ml @ 50 mls/hr IV . Q20H [facility] Rx#:[id number] Oral 600 Output: Urine 150 Other: Voiding Method Urinal Urinal Urinal # Voids 2 4 - Exam GENERAL EXAM: Alert, pleasant, 78-year-old white male, on 2 L of oxygen with a pulse ox of 92%, comfortable in no apparent distress. HEAD: Normocephalic/atraumatic. EYES: Normal reaction of pupils, equal size. Conjunctiva pink, sclera white. NOSE: Clear with pink turbinates. THROAT: No erythema or exudates. NECK: No masses, no JVD, no thyroid enlargement, no adenopathy. CHEST: No chest wall deformity. Symmetrical expansion. LUNGS: Equal air entry with diminished breath sounds, with minimal wheezes CVS: Regular rate and rhythm, normal S1 and S2, no gallops, no murmurs, no rubs ABDOMEN: Soft, nontender. No hepatosplenomegaly, normal bowel sounds, no guarding or rigidity. EXTREMITIES: No clubbing, no edema, no cyanosis, 2+ pulses and upper and lower extremities. MUSCULOSKELETAL: Muscle strength and tone normal. SPINE: No scoliosis or deformity SKIN: No rashes CENTRAL NERVOUS SYSTEM: Alert and oriented -3. No focal deficits, tone is normal in all 4 extremities. PSYCHIATRIC: Alert and oriented -3. Appropriate affect. Intact judgment and insight. - Labs CBC & Chem 7: 03/20/19 06:40 03/21/19 07:47 Labs: Abnormal Lab Results - Last 24 Hours (Table) 03/20/19 03/20/19 03/21/19 Range/Units 17:17 21:08 06:56 Sodium (137-145) mmol/L Chloride (98-107) mmol/L BUN (9-20) mg/dL Glucose (74-99) mg/dL POC Glucose (mg/dL) 290 H 283 H 280 H (75-99) mg/dL 03/21/19 03/21/19 Range/Units 07:47 11:43 Sodium 136 L (137-145) mmol/L Chloride 97 L (98-107) mmol/L BUN 31 H (9-20) mg/dL Glucose 266 H (74-99) mg/dL POC Glucose (mg/dL) 283 H (75-99) mg/dL Assessment and Plan Plan: Assessment: #1. Acute influenza A infection #2. Acute on chronic hypoxic rest or a failure secondary to COPD, acute influenza A infection, and possibly some component of chronic systolic congestive heart failure #3. Obesity with a BMI of 32 #4. Suspect obstructive sleep apnea with poor sleep quality and poor ability to maintain sleep and frequent arousals and chronic hypersomnia #5. Peripheral diabetic neuropathy #6. Peripheral vascular disease #7. Hypertension #8. Hyperlipidemia #9. Diabetes mellitus type 2 with diabetic neuropathy #10. Chronic atrial fibrillation #11. Severe systolic dysfunction with EF of 35% #12. Nicotine dependence syndrome #13. Right interstitial lung disease as noted on CT of the chest Plan: Continue current treatment, Tamiflu, antibiotics, steroids, patient is improving, he is on room air, he is tolerating ambulation, he has been on oral diuretics, no complaints of worsening shortness of breath, nicotine cessation was strongly advised. From pulmonary perspective patient could be considered for discharge home I performed a history & physical examination of the patient and discussed their management with my nurse practitioner, Nicky Lopez. I reviewed the nurse practitioner's note and agree with the documented findings and plan of care. Lung sounds are positive for minimal wheezes The findings and the impression was discussed with the patient. I attest to the documentation by the nurse practitioner. Time with Patient: Less than 30
[2019-03-21 15:56] VITALS: PULSE 72
== END 2019-03-21 17:20 | disposition home or self-care (01) | DRG 193 ==
LOC: EC 18:07 → 5NMEDONC 20:25
PROVIDERS: ADMIT Internal Medicine; ATTEND Internal Medicine
DX: J10.1 Influenza due to other identified influenza virus with other respiratory manifestations (principal); J96.21 Acute and chronic respiratory failure with hypoxia; J44.1 Chronic obstructive pulmonary disease with (acute) exacerbation; I48.20 Chronic atrial fibrillation, unspecified; I50.22 Chronic systolic (congestive) heart failure; E11.36 Type 2 diabetes mellitus with diabetic cataract; S91.052A Open bite, left ankle, initial encounter; E11.42 Type 2 diabetes mellitus with diabetic polyneuropathy; E11.51 Type 2 diabetes mellitus with diabetic peripheral angiopathy without gangrene; I11.0 Hypertensive heart disease with heart failure; J84.10 Pulmonary fibrosis, unspecified; E66.9 Obesity, unspecified; E78.5 Hyperlipidemia, unspecified; F17.210 Nicotine dependence, cigarettes, uncomplicated; F32.9 Major depressive disorder, single episode, unspecified; F41.9 Anxiety disorder, unspecified; G25.81 Restless legs syndrome; G89.29 Other chronic pain; I25.10 Atherosclerotic heart disease of native coronary artery without angina pectoris; I25.2 Old myocardial infarction; G47.00 Insomnia, unspecified; R29.6 Repeated falls; K43.9 Ventral hernia without obstruction or gangrene; M54.9 Dorsalgia, unspecified; G47.33 Obstructive sleep apnea (adult) (pediatric); W54.0XXA Bitten by dog, initial encounter; Z68.32 Body mass index [BMI] 32.0-32.9, adult; Z79.01 Long term (current) use of anticoagulants; Z79.82 Long term (current) use of aspirin; Z79.84 Long term (current) use of oral hypoglycemic drugs; Z79.899 Other long term (current) drug therapy; Z99.81 Dependence on supplemental oxygen; Z96.642 Presence of left artificial hip joint; Z96.611 Presence of right artificial shoulder joint; Z95.5 Presence of coronary angioplasty implant and graft; Z88.0 Allergy status to penicillin; Z79.52 Long term (current) use of systemic steroids; Z90.79 Acquired absence of other genital organ(s); Z90.49 Acquired absence of other specified parts of digestive tract; Z71.6 Tobacco abuse counseling; Z82.49 Family history of ischemic heart disease and other diseases of the circulatory system
CPT/HCPCS: 36415; 71046; 71250; 80048; 80053; 81003; 83605; 84484; 85025; 87502; 90471; 90715; 93005; 94640; 96374; 96375; 99285

== ENCOUNTER 2021-02-12 14:10 | Observation (INO) | payer MEDICARE ==
--- NOTE | 2021-02-12 14:56 | XR ---
EXAMINATION TYPE: XR chest 2V DATE OF EXAM: 02/12/2021 COMPARISON: 03/18/19 HISTORY: Shortness of breath TECHNIQUE: Frontal and lateral views of the chest are obtained. FINDINGS: Scattered senescent parenchymal changes noted. Hyperinflation compatible with COPD. No evidence for infiltrate. No evidence for atelectasis. Heart size is stable. Mediastinal structures are stable and grossly unremarkable. No evidence for hilar prominence. Degenerative changes dorsal spine. IMPRESSION: 1. No evidence for acute pulmonary disease.
[2021-02-12] MEDS ORDERED: BACITRACIN OINT 1 EACH PACKET TOPICAL ONE (16:54)
--- NOTE | 2021-02-12 17:30 | ED ---
General Adult HPI - General Chief complaint: Extremity Problem,Nontraumatic Stated complaint: R&L Foot sores Time Seen by Provider: 02/12/21 16:21 Source: patient Mode of arrival: wheelchair Limitations: no limitations - History of Present Illness Initial comments: 80 year-old male patient presents for evaluation of bilateral lower extremity swelling. States the right side has developed blisters and is weeping. He did see his physician and was told to take a double dose of lasix. States he did and it did not seem to help. He denies pain to the area. Denies any fever or chills. Denies shortness of breath or cough. Denies chest pain. Patient denies any recent rash, abdominal pain, nausea, vomiting, diarrhea, constipation, back pain, numbness, tingling, dizziness, weakness, hematuria, dysuria, urinary urgency, urinary frequency, headache, visual changes, or any other complaints. - Related Data Home Medications Medication Instructions Recorded Confirmed Albuterol Nebulized [Ventolin 2.5 mg INHALATION RT-QID 07/27/17 02/12/21 Nebulized] Apixaban [Eliquis] 5 mg PO BID 07/27/17 02/12/21 DULoxetine HCL [Cymbalta] 60 mg PO HS 07/27/17 02/12/21 Fenofibrate Nanocrystallized 145 mg PO DAILY 07/27/17 02/12/21 [Tricor] Fluticasone/Vilanterol [Breo 1 puff INHALATION RT-DAILY 07/27/17 02/12/21 Ellipta 200-25 Mcg Inhaler] Furosemide [Lasix] 20 mg PO Q48H 07/27/17 02/12/21 Isosorbide Mononitrate ER [Imdur] 30 mg PO DAILY 07/27/17 02/12/21 Tiotropium [place] [Spiriva] 1 puff INHALATION RT-DAILY 07/27/17 02/12/21 atenoloL [Tenormin] 25 mg PO DAILY 07/27/17 02/12/21 dilTIAZem HCL [Diltiazem HCl] 15 mg PO Q8H 07/27/17 02/12/21 lisinopriL [Zestril] 2.5 mg PO DAILY 07/27/17 02/12/21 metFORMIN HCL [Glucophage] 1,000 mg PO BID 07/27/17 02/12/21 rOPINIRole HCL [Requip] 0.25 mg PO HS 07/27/17 02/12/21 busPIRone HCl [Buspar] 5 mg PO BID 03/18/19 02/12/21 sitaGLIPtin [Januvia] 100 mg PO DAILY 03/18/19 02/12/21 Albuterol Sulfate [Albuterol 1 - 2 puff INHALATION RT-Q4H PRN 02/12/21 02/12/21 Sulfate Hfa] Atorvastatin [Lipitor] 40 mg PO DAILY 02/12/21 02/12/21 Clopidogrel [Plavix] 75 mg PO HS 02/12/21 02/12/21 Gabapentin [Neurontin] 400 mg PO BID@0900,1700 02/12/21 02/12/21 Morphine Sulfate ER [Ms Contin] 30 mg PO BID 02/12/21 02/12/21 Multivit-Min/FA/Lycopen/Lutein 1 tab PO DAILY 02/12/21 02/12/21 [Centrum Silver Men Tablet] Vitamin C 125mg Gummy 125 mg PO DAILY 02/12/21 02/12/21 Allergies Allergy/AdvReac Type Severity Reaction Status Date / Time Penicillins Allergy Rash/Hives Verified 02/12/21 17:20 Review of Systems ROS Statement: Those systems with pertinent positive or pertinent negative responses have been documented in the HPI. ROS Other: All systems not noted in ROS Statement are negative. 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, coronary artery disease with previous coronary stenting and previous myocardial infarction, [id number] diabetes mellitus type 2, peripheral neuropathy, peripheral vascular disease with previous stenting of the left lower extremity and previous vascular surgery in the right leg, frequent falls, previous history of sores in the lower extremity in the heels, chronic hypoxic respiratory failure maintained on oxygen at 3 L/m nasal cannula, restless leg syndrome, chronic back pain, abdominal wall hernia, bilateral cataracts, hyperlipidemia, hypertension, diabetes mellitus Last Myocardial Infarction Date:: unkn History of Any Multi-Drug Resistant Organisms: None Reported Past Surgical History: Hernia Repair, Joint Replacement, Orthopedic Surgery Additional Past Surgical History / Comment(s): Cardiac catheterization with coronary stenting, back surgery, appendectomy, hernia repair, left total hip replacement, right shoulder replacement, right rotator cuff repair, TURP, left lower extremity angioplasty and stenting for peripheral vascular disease, previous colonoscopies Past Anesthesia/Blood Transfusion Reactions: No Reported Reaction Past Psychological History: Anxiety, Depression Past Alcohol Use History: None Reported Past Drug Use History: None Reported - Past Family History Father Family Medical History: Myocardial Infarction ([place]) Additional Family Medical History / Comment(s): Father of a [place] at the age of 62 yrs. Mother Additional Family Medical History / Comment(s): Mother was a heavy smoker. General Exam Limitations: no limitations General appearance: alert, in no apparent distress, other (This is a well developed, well nourished adult male in no acute distress. ) Eye exam: Present: normal appearance, PERRL, EOMI. Absent: scleral icterus, conjunctival injection, periorbital swelling ENT exam: Present: normal exam, normal oropharynx, mucous membranes moist Respiratory exam: Present: normal lung sounds bilaterally. Absent: respiratory distress, wheezes, rales, rhonchi, stridor Cardiovascular Exam: Present: regular rate, normal rhythm, normal heart sounds. Absent: systolic murmur, diastolic murmur, rubs, gallop, clicks GI/Abdominal exam: Present: soft, normal bowel sounds. Absent: distended, tenderness, guarding, rebound, rigid Extremities exam: Present: full ROM, normal capillary refill, other (Bilateral lower extremity swelling, worse on the right. 2+ pitting edema. Erythema, weeping, blisters noted to the dorsal aspect of the right foot. ). Absent: tenderness, pedal edema, joint swelling, calf tenderness Neurological exam: Present: alert, oriented X3, CN II-XII intact Psychiatric exam: Present: normal affect, normal mood Skin exam: Present: warm, dry, intact, normal color. Absent: rash Course Vital Signs 02/12/21 02/12/21 14:24 19:55 Temperature 98.3 F Pulse Rate 74 92 Respiratory 20 18 Rate Blood Pressure 107/50 141/73 O2 Sat by Pulse 93 L 95 Oximetry - Reevaluation(s) Reevaluation #1: 02/12/21 18:47 Review of chart shows elevated lactic acid. Patient has extremity edema and mild shortness of breath. Will give 500ml bolus. Feel it would be detrimental to receive additional fluids. Medical Decision Making - Medical Decision Making 80-year-old male patient presenting for evaluation of lower extremity swelling and weeping. Physical examination did reveal bilateral lower extremity pitting edema. Did have wounds and blisters noted to the dorsal aspect of the right foot. There is right foot erythema. Symptoms are consistent with cellulitis. He'll be started on antibiotics. Labs did reveal elevated white blood cell count elevated lactic acid. He is admitted to the hospital for further evaluation and monitoring. He is agreeable this plan. Case discussed with my attending Dr. Tee. - Lab Data Result diagrams: 02/12/21 17:32 02/12/21 17:32 Lab Results 02/12/21 02/12/21 02/12/21 Range/Units 17:32 17:32 17:32 WBC 11.4 H (3.8-10.6) k/uL RBC 4.54 (4.30-5.90) m/uL Hgb 14.0 (13.0-17.5) gm/dL Hct 42.9 (39.0-53.0) % MCV 94.6 (80.0-100.0) fL MCH 30.7 (25.0-35.0) pg MCHC 32.5 (31.0-37.0) g/dL RDW 12.7 (11.5-15.5) % Plt Count 307 (150-450) k/uL MPV 8.4 Neutrophils % 73 % Lymphocytes % 14 % Monocytes % 6 % Eosinophils % 4 % Basophils % 1 % Neutrophils # 8.3 H (1.3-7.7) k/uL Lymphocytes # 1.6 (1.0-4.8) k/uL Monocytes # 0.7 (0-1.0) k/uL Eosinophils # 0.5 (0-0.7) k/uL Basophils # 0.1 (0-0.2) k/uL Sodium 135 L (137-145) mmol/L Potassium 4.3 (3.5-5.1) mmol/L Chloride 101 (98-107) mmol/L Carbon Dioxide 27 (22-30) mmol/L Anion Gap 7 mmol/L BUN 20 (9-20) mg/dL Creatinine 0.89 (0.66-1.25) mg/dL Est GFR (CKD-EPI)AfAm >90 (>60 ml/min/1.73 sqM) Est GFR (CKD-EPI)NonAf 80 (>60 ml/min/1.73 sqM) Glucose 139 H (74-99) mg/dL Lactic Ac Sepsis Rflx Plasma Lactic Acid Jatin 2.2 H* (0.7-2.0) mmol/L Calcium 9.8 (8.4-10.2) mg/dL Total Bilirubin 0.5 (0.2-1.3) mg/dL AST 23 (17-59) U/L ALT 15 (4-49) U/L Alkaline Phosphatase 48 (38-126) U/L NT-Pro-B Natriuret Pep pg/mL Total Protein 7.0 (6.3-8.2) g/dL Albumin 4.0 (3.5-5.0) g/dL Coronavirus (PCR) (Not Detectd) 02/12/21 02/12/21 02/12/21 Range/Units 17:32 18:16 19:55 WBC (3.8-10.6) k/uL RBC (4.30-5.90) m/uL Hgb (13.0-17.5) gm/dL Hct (39.0-53.0) % MCV (80.0-100.0) fL MCH (25.0-35.0) pg MCHC (31.0-37.0) g/dL RDW (11.5-15.5) % Plt Count (150-450) k/uL MPV Neutrophils % % Lymphocytes % % Monocytes % % Eosinophils % % Basophils % % Neutrophils # (1.3-7.7) k/uL Lymphocytes # (1.0-4.8) k/uL Monocytes # (0-1.0) k/uL Eosinophils # (0-0.7) k/uL Basophils # (0-0.2) k/uL Sodium (137-145) mmol/L Potassium (3.5-5.1) mmol/L Chloride (98-107) mmol/L Carbon Dioxide (22-30) mmol/L Anion Gap mmol/L BUN (9-20) mg/dL Creatinine (0.66-1.25) mg/dL Est GFR (CKD-EPI)AfAm (>60 ml/min/1.73 sqM) Est GFR (CKD-EPI)NonAf (>60 ml/min/1.73 sqM) Glucose (74-99) mg/dL Lactic Ac Sepsis Rflx Y Plasma Lactic Acid Jatin (0.7-2.0) mmol/L Calcium (8.4-10.2) mg/dL Total Bilirubin (0.2-1.3) mg/dL AST (17-59) U/L ALT (4-49) U/L Alkaline Phosphatase (38-126) U/L NT-Pro-B Natriuret Pep 1860 pg/mL Total Protein (6.3-8.2) g/dL Albumin (3.5-5.0) g/dL Coronavirus (PCR) Not Detected (Not Detectd) - Radiology Data Radiology results: report reviewed, image reviewed Two-view x-ray of the chest is obtained. Report was reviewed in its entirety. Impression by Dr. Kraft shows no evidence for acute pulmonary disease. Disposition Clinical Impression: Wound of right foot, Cellulitis of right foot, Bilateral lower extremity edema Disposition: ADMITTED IP TO THIS [facility] Condition: Serious Decision to Admit Reason: Admit from EC Decision Date: 02/12/21 Decision Time: 20:19
[2021-02-12 17:44] LABS: Basophils # (A) 0.1 k/uL (0-0.2); Basophils % (A) 1 %; Eosinophils # (A) 0.5 k/uL (0-0.7); Eosinophils % (A) 4 %; HCT 42.9 % (39.0-53.0); Lymphocytes # (A) 1.6 k/uL (1.0-4.8); Lymphocytes % (A) 14 %; MCH 30.7 pg (25.0-35.0); MCHC 32.5 g/dL (31.0-37.0); MCV 94.6 fL (80.0-100.0); Mean Platelet Volume 8.4; Monocytes # (A) 0.7 k/uL (0-1.0); Monocytes % (A) 6 %; Neutrophils # (A) 8.3 k/uL (1.3-7.7); Neutrophils % (A) 73 %; Platelet Count 307 k/uL (150-450); RBC 4.54 m/uL (4.30-5.90); RDW 12.7 % (11.5-15.5); WBC 11.4 k/uL (3.8-10.6)
[2021-02-12 18:04] LABS: ALT 15 U/L (4-49); AST 23 U/L (17-59); African American GFR (CKD) >90 (>60 ml/min/1.73 sqM); Alkaline Phosphatase 48 U/L (38-126); Anion Gap 7 mmol/L; Blood Urea Nitrogen 20 mg/dL (9-20); Calcium 9.8 mg/dL (8.4-10.2); Carbon Dioxide 27 mmol/L (22-30); Chloride 101 mmol/L (98-107); Glucose 139 mg/dL (74-99); Non-African American GFR(CKD) 80 (>60 ml/min/1.73 sqM); Sodium 135 mmol/L (137-145); Total Bilirubin 0.5 mg/dL (0.2-1.3)
[2021-02-12 18:11] LABS: Potassium 4.3 mmol/L (3.5-5.1)
[2021-02-12] MEDS ORDERED: SODIUM CHLORIDE 0.9% 500 ML 500 ML IV ONE (18:48)
[2021-02-12] MEDS ORDERED: VANCOMYCIN IV PER PHARMACY 1 EACH MISC MISCELLANE PRN (19:09)
[2021-02-12] MEDS ORDERED: VANCOMYCIN 1,750 MG in SODIUM CHLORIDE 0.9% 500 ML 500 ML IVPB ONE (19:30)
[2021-02-12] MEDS ORDERED: ACETAMINOPHEN TAB 325 MG TAB PO PRN (20:14)
[2021-02-12] MEDS ORDERED: NALOXONE 0.4 MG/ML 1 ML VIAL IV PRN (20:14)
[2021-02-12] MEDS ORDERED: ALBUTEROL NEBULIZED 2.5 MG/3 ML INHALATION PRN (21:47)
[2021-02-12] MEDS ORDERED: MORPHINE SULFATE ER 30 MG TABLET PO SCH (22:00)
[2021-02-12] MEDS: DILTIAZEM ORAL 30 MG TAB PO SCH (22:12)
[2021-02-12] MEDS: APIXABAN 5 MG TAB PO SCH (22:12)
[2021-02-12] MEDS: DULoxetine HCL 60 MG CAPSULE.DR PO SCH (22:12)
[2021-02-12] MEDS: MORPHINE SULFATE ER 30 MG TABLET PO SCH (23:10)
[2021-02-13] MEDS ORDERED: ALBUTEROL NEBULIZED 2.5 MG/3 ML INHALATION SCH (08:00)
[2021-02-13 08:14] LABS: Glucose,Whole Blood 160 mg/dL (75-99)
[2021-02-13] MEDS: FORMOTEROL FUMARATE 20 MCG/2 ML NEBU INHALATION SCH ×2 (08:49→20:26)
[2021-02-13] MEDS: BUDESONIDE 1 MG/2 ML NEBU INHALATION SCH ×2 (08:49→20:26)
[2021-02-13] MEDS: IPRATROPIUM-ALBUTEROL 3 ML NEB INHALATION SCH ×4 (08:49→20:26)
[2021-02-13] MEDS: INSULIN ASPART (NovoLOG) 100 UNIT/ML VIAL SQ SCH ×4 (08:58→21:45)
[2021-02-13] MEDS: atenoloL 25 MG TAB PO SCH (08:59)
[2021-02-13] MEDS: ATORVASTATIN 40 MG TAB PO SCH (08:59)
[2021-02-13] MEDS: FENOFIBRATE 160 MG TAB PO SCH (08:59)
[2021-02-13] MEDS: DILTIAZEM ORAL 30 MG TAB PO SCH ×3 (08:59→21:42)
[2021-02-13] MEDS: busPIRone HCl 5 MG TAB PO SCH ×2 (08:59→21:44)
[2021-02-13] MEDS: APIXABAN 5 MG TAB PO SCH ×2 (08:59→21:43)
[2021-02-13] MEDS: VANCOMYCIN 1,500 MG in SODIUM CHLORIDE 0.9% 250 ML IVPB SCH ×2 (09:00→21:37)
[2021-02-13] MEDS ORDERED: ISOSORBIDE MONONITRATE ER 30 MG TAB.ER.24H PO SCH (09:00)
[2021-02-13 09:23] LABS: Basophils # (A) 0.07 X 10*3/uL (0.00-0.10); Basophils % (A) 0.7 %; Eosinophils # (A) 0.43 X 10*3/uL (0.04-0.35); Eosinophils % (A) 4.3 %; HCT 37.9 % (39.6-50.0); HGB 12.6 g/dL (13.0-17.0); Lymphocytes # (A) 1.72 X 10*3/uL (0.90-5.00); Lymphocytes % (A) 17.3 %; MCH 31.7 pg (27.0-32.0); MCHC 33.2 g/dL (32.0-37.0); MCV 95.5 fL (80.0-97.0); Mean Platelet Volume 10.9 fL (9.5-12.2); Monocytes # (A) 0.95 X 10*3/uL (0.20-1.00); Monocytes % (A) 9.5 %; Neutrophils # (A) 6.77 X 10*3/uL (1.80-7.70); Neutrophils % (A) 67.9 %; Platelet Count 270 X 10*3/uL (140-440); RBC 3.97 X 10*6/uL (4.40-5.60); RDW 12.9 % (11.5-14.5); WBC 9.97 X 10*3/uL (4.50-10.00)
[2021-02-13 10:04] LABS: African American GFR (CKD) 92.5 (60.0-200.0); Anion Gap 10.9 mmol/L (10.00-18.00); BUN/Creat Ratio 20.22 Ratio (12.00-20.00); Blood Urea Nitrogen 18.2 mg/dL (9.0-27.0); Calcium 8.9 mg/dL (8.7-10.3); Carbon Dioxide 24.1 mmol/L (20.0-27.5); Non-African American GFR(CKD) 79.8 (60.0-200.0); Potassium 4.3 mmol/L (3.5-5.5)
--- NOTE | 2021-02-13 10:12 | P.HPIM ---
History of Present Illness This is a pleasant 80 years old male with past medical history of Atrial Fibrillation on Eliquis, Heart Failure, COPD, Diabetes Mellitus, Hyperlipidemia, Hypertension, peripheral neuropathy, peripheral vascular disease with previous stenting of the left lower extremity and previous vascular surgery in the right leg, frequent falls, chronic hypoxic respiratory failure maintained on oxygen at 3 L/m nasal cannula, restless leg syndrome, chronic back pain, He presents with bilateral feel redness, swelling pain and some purulent discharge for about 4 days, mainly on the right foot. He does not feel pain in the Vitals stable. Elevated lactic acid came back to normal. Has mild leukocytosis of 11.4. BMP and liver enzymes are unremarkable. ProBNP is 1860. Coronavirus not detected. Chest x-ray: No acute process. On admission he was started on IV vancomycin and received 1 dose of cefazolin Review of Systems CONSTITUTIONAL: No fever, no malaise, no fatigue. HEENT: No recent visual problems or hearing problems. Denied any sore throat. CARDIOVASCULAR: No orthopnea, PND, no palpitations, no syncope. PULMONARY: No shortness of breath, no cough, no hemoptysis. GASTROINTESTINAL: No diarrhea, no nausea, no vomiting, no abdominal pain. Normoactive bowel sounds. NEUROLOGICAL: No headaches, no weakness, no numbness. HEMATOLOGICAL: Denies any bleeding or petechiae. GENITOURINARY: Denies any burning micturition, frequency, or urgency. MUSCULOSKELETAL/RHEUMATOLOGICAL: Denies any joint pain, swelling, or any muscle pain. ENDOCRINE: Denies any polyuria or polydipsia. 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, coronary artery disease with previous coronary stenting and previous myocardial infarction, [id number] diabetes mellitus type 2, peripheral neuropathy, peripheral vascular disease with previous stenting of the left lower extremity and previous vascular surgery in the right leg, frequent falls, previous history of sores in the lower extremity in the heels, chronic hypoxic respiratory failure maintained on oxygen at 3 L/m nasal cannula, restless leg syndrome, chronic back pain, abdominal wall hernia, bilateral cataracts, hyperlipidemia, hypertension, diabetes mellitus Last Myocardial Infarction Date:: unkn History of Any Multi-Drug Resistant Organisms: None Reported Past Surgical History: Hernia Repair, Joint Replacement, Orthopedic Surgery Additional Past Surgical History / Comment(s): Cardiac catheterization with coronary stenting, back surgery, appendectomy, hernia repair, left total hip replacement, right shoulder replacement, right rotator cuff repair, TURP, left lower extremity angioplasty and stenting for peripheral vascular disease, previous colonoscopies Past Anesthesia/Blood Transfusion Reactions: No Reported Reaction Past Psychological History: Anxiety, Depression Past Alcohol Use History: None Reported Past Drug Use History: None Reported - Past Family History Father Family Medical History: Myocardial Infarction ([place]) Additional Family Medical History / Comment(s): Father of a [place] at the age of 62 yrs. Mother Additional Family Medical History / Comment(s): Mother was a heavy smoker. Medications and Allergies Home Medications Medication Instructions Recorded Confirmed Type Albuterol Nebulized [Ventolin 2.5 mg INHALATION RT-QID 07/27/17 02/12/21 History Nebulized] Apixaban [Eliquis] 5 mg PO BID 07/27/17 02/12/21 History DULoxetine HCL [Cymbalta] 60 mg PO HS 07/27/17 02/12/21 History Fenofibrate Nanocrystallized 145 mg PO DAILY 07/27/17 02/12/21 History [Tricor] Fluticasone/Vilanterol [Breo 1 puff INHALATION RT-DAILY 07/27/17 02/12/21 History Ellipta 200-25 Mcg Inhaler] Furosemide [Lasix] 20 mg PO Q48H 07/27/17 02/12/21 History Isosorbide Mononitrate ER [Imdur] 30 mg PO DAILY 07/27/17 02/12/21 History Tiotropium [place] [Spiriva] 1 puff INHALATION RT-DAILY 07/27/17 02/12/21 History atenoloL [Tenormin] 25 mg PO DAILY 07/27/17 02/12/21 History dilTIAZem HCL [Diltiazem HCl] 15 mg PO Q8H 07/27/17 02/12/21 History lisinopriL [Zestril] 2.5 mg PO DAILY 07/27/17 02/12/21 History metFORMIN HCL [Glucophage] 1,000 mg PO BID 07/27/17 02/12/21 History rOPINIRole HCL [Requip] 0.25 mg PO HS 07/27/17 02/12/21 History busPIRone HCl [Buspar] 5 mg PO BID 03/18/19 02/12/21 History sitaGLIPtin [Januvia] 100 mg PO DAILY 03/18/19 02/12/21 History Albuterol Sulfate [Albuterol 1 - 2 puff INHALATION RT-Q4H PRN 02/12/21 02/12/21 History Sulfate Hfa] Atorvastatin [Lipitor] 40 mg PO DAILY 02/12/21 02/12/21 History Clopidogrel [Plavix] 75 mg PO HS 02/12/21 02/12/21 History Gabapentin [Neurontin] 400 mg PO BID@0900,1700 02/12/21 02/12/21 History Morphine Sulfate ER [Ms Contin] 30 mg PO BID 02/12/21 02/12/21 History Multivit-Min/FA/Lycopen/Lutein 1 tab PO DAILY 02/12/21 02/12/21 History [Centrum Silver Men Tablet] Vitamin C 125mg Gummy 125 mg PO DAILY 02/12/21 02/12/21 History Allergies Allergy/AdvReac Type Severity Reaction Status Date / Time Penicillins Allergy Rash/Hives Verified 02/12/21 17:20 Physical Exam Vitals: Vital Signs Temp Pulse Resp BP Pulse Ox 02/12/21 23:00 82 20 123/87 02/12/21 19:55 92 18 141/73 95 02/12/21 14:24 98.3 F 74 20 107/50 93 L GENERAL: The patient is alert and oriented x3, not in any acute distress. Well developed, well nourished. HEENT: Pupils are round and equally reacting to light. EOMI. No scleral icterus. No conjunctival pallor. Normocephalic, atraumatic. No pharyngeal erythema. No thyromegaly. CARDIOVASCULAR: S1 and S2 present. No murmurs, rubs, or gallops. PULMONARY: Chest is clear to auscultation, no wheezing or crackles. ABDOMEN: Soft, nontender, nondistended, normoactive bowel sounds. No palpable organomegaly. MUSCULOSKELETAL: No joint swelling or deformity. -EXTREMITIES: No cyanosis, clubbing, or pedal edema. Foot cellulitis. Both feet are red inflamed and with purulent discharge, more on the right side NEUROLOGICAL: Gross neurological examination did not reveal any focal deficits. SKIN: No rashes. No petechiae Results CBC & Chem 7: 02/13/21 03:42 02/13/21 03:42 Labs: Abnormal Lab Results - Last 24 Hours (Table) 02/12/21 02/12/21 02/12/21 Range/Units 17:32 17:32 17:32 WBC 11.4 H (3.8-10.6) k/uL Neutrophils # 8.3 H (1.3-7.7) k/uL Sodium 135 L (137-145) mmol/L Glucose 139 H (74-99) mg/dL Plasma Lactic Acid Jatin 2.2 H* (0.7-2.0) mmol/L 02/12/21 Range/Units 20:56 WBC (3.8-10.6) k/uL Neutrophils # (1.3-7.7) k/uL Sodium (137-145) mmol/L Glucose (74-99) mg/dL Plasma Lactic Acid Jatin 2.7 H* (0.7-2.0) mmol/L Assessment and Plan Assessment: Acute right more than left foot cellulitis Paroxysmal atrial fibrillation on Eliquis Chronic heart failure, no acute exacerbation COPD, and acute exacerbation Lantus Hypertension Hyperlipidemia Diabetic neuropathy History of Peripheral vascular disease status post stenting History of Frequent falls Plan: This is a pleasant 80 years old male who presents with right foot cellulitis Continue with antibiotic per ID team recommendation, currently is on IV vancomycin pharmacy to dose Continue gentle hydration Labs and medication were reviewed.. Continue same treatment. Continue with symptomatic treatment. Resume home medication. Monitor lytes and vitals. DVT and GI prophylaxis. Further recommendations depends on the clinical course of the patient DVT prophylaxis: Eliquis GI Prophylaxis: Pepcid PT/OT: Pending
--- NOTE | 2021-02-13 10:27 | P.CNPUL ---
History of Present Illness Consult date: 02/13/21 Requesting physician: Parisa Rutherford Reason for consult: dyspnea, cough, COPD, hypoxemia, abnormal CXR/CT Chief complaint: Shortness of breath History of present illness: Pulmonary consult dated 02/13/2021. 80-year-old male who presents to the emergency department on February 12, complaining of lower extremity edema, as well as an infection in the toes of his right foot. In addition, patient complains of shortness of breath, cough, and wheezing. He is coughing up some occasional phlegm. I don't believe he came to the emergency department primarily for the lung issues, though he does have severe COPD. I see him in the office for his COPD. Currently, he's on saline at 20 mL an hour, and nasal O2 at 3 L. For his right lower extremity cellulitis, and foot infection, he is getting Ancef and vancomycin. The patient was seen in the emergency department, in room 21. As mentioned, the patient is on 3 L nasal cannula and saline at 20 mL an hour. White count 9.97, hemoglobin 12.6, hematocrit 37.9, platelet count 270,000. Sodium, potassium, chloride, CO2, anion gap, BUN, and creatinine are all normal. Initial lactic acid was 2.7, and repeat was 1.6. Chest x-rays consistent with underlying COPD, but no acute processes is noted. Review of Systems REVIEW OF SYSTEMS: CONSTITUTIONAL: [Negative.] NEUROLOGIC: [ Negative.] HEENT: [ Negative.] CARDIAC: [Negative.] PULMONARY: Shortness of breath, cough, chest congestion, and phlegm production. GI: [Negative.] : [Negative.] RHEUMATOLOGIC: [ Negative.] IMMUNOLOGIC: [ Negative.] ENDOCRINE: [Negative. ] DERMATOLOGIC: Lower extremity edema, erythema, and possible cellulitis of the right foot. Past Medical History Past Medical History: Atrial Fibrillation, Heart Failure, COPD, Diabetes Mellitus, Hyperlipidemia, Hypertension, Myocardial Infarction (VT), Vascular Disorder Additional Past Medical History / Comment(s): COPD severe in nature, coronary artery disease with previous coronary stenting and previous myocardial infar ction, [id number] diabetes mellitus type 2, peripheral neuropathy, peripheral vascular disease with previous stenting of the left lower extremity and previous vascular surgery in the right leg, frequent falls, previous history of sores in the lower extremity in the heels, chronic hypoxic respiratory failure maintained on oxygen at 3 L/m nasal cannula, restless leg syndrome, chronic back pain, abdominal wall hernia, bilateral cataracts, hyperlipidemia, hypertension, diabetes mellitus Last Myocardial Infarction Date:: unkn History of Any Multi-Drug Resistant Organisms: None Reported Past Surgical History: Hernia Repair, Joint Replacement, Orthopedic Surgery Additional Past Surgical History / Comment(s): Cardiac catheterization with coronary stenting, back surgery, appendectomy, hernia repair, left total hip replacement, right shoulder replacement, right rotator cuff repair, TURP, left lower extremity angioplasty and stenting for peripheral vascular disease, previous colonoscopies Past Anesthesia/Blood Transfusion Reactions: No Reported Reaction Past Psychological History: Anxiety, Depression Past Alcohol Use History: None Reported Past Drug Use History: None Reported - Past Family History Father Family Medical History: Myocardial Infarction (VT) Additional Family Medical History / Comment(s): Father of a VT at the age of 62 yrs. Mother Additional Family Medical History / Comment(s): Mother was a heavy smoker. Medications and Allergies Home Medications Medication Instructions Recorded Confirmed Type Albuterol Nebulized [Ventolin 2.5 mg INHALATION RT-QID 07/27/17 02/12/21 History Nebulized] Apixaban [Eliquis] 5 mg PO BID 07/27/17 02/12/21 History DULoxetine HCL [Cymbalta] 60 mg PO HS 07/27/17 02/12/21 History Fenofibrate Nanocrystallized 145 mg PO DAILY 07/27/17 02/12/21 History [Tricor] Fluticasone/Vilanterol [Breo 1 puff INHALATION RT-DAILY 07/27/17 02/12/21 History Ellipta 200-25 Mcg Inhaler] Furosemide [Lasix] 20 mg PO Q48H 07/27/17 02/12/21 History Isosorbide Mononitrate ER [Imdur] 30 mg PO DAILY 07/27/17 02/12/21 History Tiotropium [place] [Spiriva] 1 puff INHALATION RT-DAILY 07/27/17 02/12/21 History atenoloL [Tenormin] 25 mg PO DAILY 07/27/17 02/12/21 History dilTIAZem HCL [Diltiazem HCl] 15 mg PO Q8H 07/27/17 02/12/21 History lisinopriL [Zestril] 2.5 mg PO DAILY 07/27/17 02/12/21 History metFORMIN HCL [Glucophage] 1,000 mg PO BID 07/27/17 02/12/21 History rOPINIRole HCL [Requip] 0.25 mg PO HS 07/27/17 02/12/21 History busPIRone HCl [Buspar] 5 mg PO BID 03/18/19 02/12/21 History sitaGLIPtin [Januvia] 100 mg PO DAILY 03/18/19 02/12/21 History Albuterol Sulfate [Albuterol 1 - 2 puff INHALATION RT-Q4H PRN 02/12/21 02/12/21 History Sulfate Hfa] Atorvastatin [Lipitor] 40 mg PO DAILY 02/12/21 02/12/21 History Clopidogrel [Plavix] 75 mg PO HS 02/12/21 02/12/21 History Gabapentin [Neurontin] 400 mg PO BID@0900,1700 02/12/21 02/12/21 History Morphine Sulfate ER [Ms Contin] 30 mg PO BID 02/12/21 02/12/21 History Multivit-Min/FA/Lycopen/Lutein 1 tab PO DAILY 02/12/21 02/12/21 History [Centrum Silver Men Tablet] Vitamin C 125mg Gummy 125 mg PO DAILY 02/12/21 02/12/21 History Allergies Allergy/AdvReac Type Severity Reaction Status Date / Time Penicillins Allergy Rash/Hives Verified 02/12/21 17:20 Physical Exam Osteopathic Statement: *. No significant issues noted on an osteopathic structural exam other than those noted in the History and Physical/Consult. Vitals: Vital Signs Temp Pulse Resp BP Pulse Ox 02/13/21 09:06 90 02/13/21 09:01 84 02/13/21 09:00 84 02/13/21 08:50 84 02/12/21 23:00 82 20 123/87 02/12/21 19:55 92 18 141/73 95 02/12/21 14:24 98.3 F 74 20 107/50 93 L No acute distress, oriented 3. No respiratory distress. Currently, patient on 3 L nasal cannula. HEENT examination is grossly unremarkable. Neck supple. Full range of motion. No adenopathy thyromegaly or neck vein distention. Cardiovascular examination reveals regular rhythm rate. S1-S2 normal. No S3 or S4. No discernible murmur noted. Heart rate 90 bpm. Heart sounds are distant. Lungs reveal coarse bilateral inspiratory and expiratory rhonchi and wheezes. Breath sounds are equal bilaterally. There is prolongation on forced maneuver. No crackles appreciated. Abdomen soft bowel sounds are heard. No masses or tenderness. Extremities are intact. There is bilateral lower extremity edema. The lower semis are very erythematous and hyperemic. Skin is without rash or lesion. Neurologic examination is brief but nonfocal. Results - Laboratory Findings CBC and BMP: 02/13/21 03:42 02/13/21 03:42 Abnormal lab findings: Abnormal Labs 02/12/21 02/12/21 02/12/21 17:32 17:32 17:32 WBC 11.4 H RBC Hgb Hct Neutrophils # 8.3 H Eosinophils # Sodium 135 L BUN/Creatinine Ratio Glucose 139 H POC Glucose (mg/dL) Plasma Lactic Acid Jatin 2.2 H* 02/12/21 02/13/21 02/13/21 20:56 03:42 03:42 WBC RBC 3.97 L Hgb 12.6 L Hct 37.9 L Neutrophils # Eosinophils # 0.43 H Sodium BUN/Creatinine Ratio 20.22 H Glucose 154 H POC Glucose (mg/dL) Plasma Lactic Acid Jatin 2.7 H* 02/13/21 08:11 WBC RBC Hgb Hct Neutrophils # Eosinophils # Sodium BUN/Creatinine Ratio Glucose POC Glucose (mg/dL) 160 H Plasma Lactic Acid Jatin - Diagnostic Findings Chest x-ray: image reviewed Assessment and Plan Assessment: Acute exacerbation of COPD. Bilateral lower extremity edema, with cellulitis. History of chronic atrial fibrillation. History of CHF. History of diabetes mellitus. History of hyperlipidemia. History of hypertension. History of myocardial infarction, status post coronary artery stenting. Peripheral vascular occlusive disease. Ongoing tobacco use with nicotine addiction. Plan: Plan dated 02/13/2021. For the patient's COPD, the patient is on DuoNeb 4 times a day and when necessary, as well as Pulmicort and formoterol. Also, we must Solu-Medrol 40 mg every 6 hours. For her cellulitis, the patient is on Ancef and vancomycin. We will continue to follow. Prognosis is guarded. Additional recommendations and suggestions are forthcoming. Chest x-ray, labs, and medications are all reviewed. Time with Patient: Greater than 30
[2021-02-13] MEDS: GABAPENTIN 400 MG CAP PO SCH ×2 (11:28→17:10)
[2021-02-13] MEDS: SODIUM CHLORIDE 0.9% 1,000 ML IV SCH ×2 (11:29→21:46)
[2021-02-13 12:21] LABS: Glucose,Whole Blood 262 mg/dL (75-99)
[2021-02-13] MEDS: methylPREDNISolone SOD SUCCI 40 MG/ML 1 ML VIAL IV SCH ×2 (12:53→17:19)
[2021-02-13] MEDS: MORPHINE SULFATE ER 30 MG TABLET PO SCH ×3 (12:53→21:44)
[2021-02-13 17:01] LABS: Glucose,Whole Blood 275 mg/dL (75-99)
[2021-02-13 20:01] LABS: Glucose,Whole Blood 380 mg/dL (75-99)
[2021-02-13] MEDS: DULoxetine HCL 60 MG CAPSULE.DR PO SCH (21:43)
[2021-02-13] MEDS: CLOPIDOGREL 75 MG TAB PO SCH (21:43)
[2021-02-13] MEDS: FAMOTIDINE 20 MG/2 ML VIAL IV SCH (21:44)
[2021-02-14] MEDS: methylPREDNISolone SOD SUCCI 40 MG/ML 1 ML VIAL IV SCH ×5 (01:01→23:58)
[2021-02-14] MEDS: DILTIAZEM ORAL 30 MG TAB PO SCH ×3 (06:05→20:23)
[2021-02-14 06:57] LABS: African American GFR (CKD) >90 (>60 ml/min/1.73 sqM); Anion Gap 8 mmol/L; Blood Urea Nitrogen 19 mg/dL (9-20); Carbon Dioxide 25 mmol/L (22-30); Chloride 102 mmol/L (98-107); Glucose 267 mg/dL (74-99); Non-African American GFR(CKD) 89 (>60 ml/min/1.73 sqM); Potassium 5.1 mmol/L (3.5-5.1); Sodium 135 mmol/L (137-145)
[2021-02-14 07:27] LABS: Glucose,Whole Blood 252 mg/dL (75-99)
[2021-02-14] MEDS: VANCOMYCIN 1,500 MG in SODIUM CHLORIDE 0.9% 250 ML IVPB SCH (08:12)
[2021-02-14] MEDS: INSULIN ASPART (NovoLOG) 100 UNIT/ML VIAL SQ SCH ×4 (08:12→20:21)
[2021-02-14] MEDS: MORPHINE SULFATE ER 30 MG TABLET PO SCH ×2 (08:13→20:12)
[2021-02-14] MEDS: GABAPENTIN 400 MG CAP PO SCH ×2 (08:13→18:22)
[2021-02-14] MEDS: atenoloL 25 MG TAB PO SCH (08:13)
[2021-02-14] MEDS: busPIRone HCl 5 MG TAB PO SCH ×2 (08:13→20:12)
[2021-02-14] MEDS: APIXABAN 5 MG TAB PO SCH ×2 (08:13→20:12)
[2021-02-14] MEDS: FAMOTIDINE 20 MG/2 ML VIAL IV SCH ×2 (08:14→20:14)
[2021-02-14] MEDS: ATORVASTATIN 40 MG TAB PO SCH (08:14)
[2021-02-14] MEDS: BUDESONIDE 1 MG/2 ML NEBU INHALATION SCH ×2 (08:22→21:10)
[2021-02-14] MEDS: FORMOTEROL FUMARATE 20 MCG/2 ML NEBU INHALATION SCH ×2 (08:22→21:10)
[2021-02-14] MEDS: IPRATROPIUM-ALBUTEROL 3 ML NEB INHALATION SCH ×4 (08:22→21:10)
--- NOTE | 2021-02-14 11:08 | P.CONS ---
History of Present Illness - Reason for Consult Consult date: 02/13/21 cellulitis leg Requesting physician: Gerber E Sheet - Chief Complaint leg swelling and redness x days - History of Present Illness History of present illness : Patient is 80-year-old male presenting to the ER last evening for evaluation of bilateral lower extremity swelling the patient has developed a blister on the right foot area and has developed some weeping which is mostly clear to yellowish fluid patient has been told to increase his dose of Lasix however that does not seem to be helping patient be complaining of pain to the lower extremity especially feet daily to be more of a dull aching to throbbing intensity is 4 to 5-10 radiation patient on pres entation to the hospital was afebrile he did have an elevated white count with a left shift BUN and creatinine has been normal gracia PCR was negative patient did have cultures obtained from the foot which are currently pending patient has been treated with vancomycin infectious disease was consulted for further management of antibiotic therapy Review of system: CONSTITUTIONAL: Positive for weakness denies high-grade fever. EYES: No complaint. ENT: No complaint. RESPIRATORY: No complaint. CARDIOVASCULAR: No complaint. GENITOURINARY: No complaint. GASTROINTESTINAL: No complaint. MUSCULOSKELETAL: As per history of present illness. INTEGUMENTARY as per history of present illness. PSYCHOLOGIC: No complaint. ENDOCRINE: No complaint. NEUROLOGIC: No complaint. Past medical history : Reviewed, documented below Past surgical history : Reviewed, documented below Social history: Reviewed, documented below Medications: Reviewed, as documented below EXAMINATION: Vital sigans= Reviewed and documented below GENERAL DESCRIPTION: Elderly male up in bed, no distress. No tachypnea or accessory muscle of respiration use. HEENT: Shows Pallor , no scleral icterus. Oral mucous membrane is dry. NECK: Trachea central, no thyromegaly. LUNGS: Unlabored breathing. Decreased breath sound at the base. No wheeze or crackle. HEART: S1, S2, regular rate and rhythm. ABDOMEN: Soft, no tenderness , guarding or rigidity EXTREMITIES: Diffuse swelling to lower extremity with some redness especially to the feet area. SKIN: No rash, no masses palpable. NEUROLOGICAL: The patient is awake, alert, oriented x3, mood and affect normal. LABS AND RADIOLOGY: Reviewed results see below Assessment : Patient presented to hospital with increasing swelling to the lower extremity patient also has developed blisters to the foot area with some weeping edema redness and concern for secondary cellulitis this patient did have mild elevated white count will need to cover for the gram-positive skin reji to be the likely pathogen in the patient is less risk for MRSA or gram-negative infection Plan: 1-Marked area of the redness 2-discontinue vancomycin 3-start the patient cefazolin 2 g every 8 hours We will follow on clinical condition and cultures to further adjust medication if needed Thank you for this consultation we will follow the patient along with you Past Medical History Past Medical History: Atrial Fibrillation, Heart Failure, COPD, Diabetes Me llitus, Hyperlipidemia, Hypertension, Myocardial Infarction (ID), Vascular Disorder Additional Past Medical History / Comment(s): COPD severe in nature, coronary artery disease with previous coronary stenting and previous myocardial infarction, [id number] diabetes mellitus type 2, peripheral neuropathy, peripheral vascular disease with previous stenting of the left lower extremity and previous vascular surgery in the right leg, frequent falls, previous history of sores in the lower extremity in the heels, chronic hypoxic respiratory failure maintained on oxygen at 3 L/m nasal cannula, restless leg syndrome, chronic back pain, abdominal wall hernia, bilateral cataracts, hyperlipidemia, hypertension, diabetes mellitus Last Myocardial Infarction Date:: unkn History of Any Multi-Drug Resistant Organisms: None Reported Past Surgical History: Hernia Repair, Joint Replacement, Orthopedic Surgery Additional Past Surgical History / Comment(s): Cardiac catheterization with coronary stenting, back surgery, appendectomy, hernia repair, left total hip replacement, right shoulder replacement, right rotator cuff repair, TURP, left lower extremity angioplasty and stenting for peripheral vascular disease, previous colonoscopies Past Anesthesia/Blood Transfusion Reactions: No Reported Reaction Past Psychological History: Anxiety, Depression Past Alcohol Use History: None Reported Past Drug Use History: None Reported - Past Family History Father Family Medical History: Myocardial Infarction (ID) Additional Family Medical History / Comment(s): Father of a ID at the age of 62 yrs. Mother Additional Family Medical History / Comment(s): Mother was a heavy smoker. Medications and Allergies Home Medications Medication Instructions Recorded Confirmed Type Albuterol Nebulized [Ventolin 2.5 mg INHALATION RT-QID 07/27/17 02/12/21 History Nebulized] Apixaban [Eliquis] 5 mg PO BID 07/27/17 02/12/21 History DULoxetine HCL [Cymbalta] 60 mg PO HS 07/27/17 02/12/21 History Fenofibrate Nanocrystallized 145 mg PO DAILY 07/27/17 02/12/21 History [Tricor] Fluticasone/Vilanterol [Breo 1 puff INHALATION RT-DAILY 07/27/17 02/12/21 History Ellipta 200-25 Mcg Inhaler] Furosemide [Lasix] 20 mg PO Q48H 07/27/17 02/12/21 History Isosorbide Mononitrate ER [Imdur] 30 mg PO DAILY 07/27/17 02/12/21 History Tiotropium [place] [Spiriva] 1 puff INHALATION RT-DAILY 07/27/17 02/12/21 History atenoloL [Tenormin] 25 mg PO DAILY 07/27/17 02/12/21 History dilTIAZem HCL [Diltiazem HCl] 15 mg PO Q8H 07/27/17 02/12/21 History lisinopriL [Zestril] 2.5 mg PO DAILY 07/27/17 02/12/21 History metFORMIN HCL [Glucophage] 1,000 mg PO BID 07/27/17 02/12/21 History rOPINIRole HCL [Requip] 0.25 mg PO HS 07/27/17 02/12/21 History busPIRone HCl [Buspar] 5 mg PO BID 03/18/19 02/12/21 History sitaGLIPtin [Januvia] 100 mg PO DAILY 03/18/19 02/12/21 History Albuterol Sulfate [Albuterol 1 - 2 puff INHALATION RT-Q4H PRN 02/12/21 02/12/21 History Sulfate Hfa] Atorvastatin [Lipitor] 40 mg PO DAILY 02/12/21 02/12/21 History Clopidogrel [Plavix] 75 mg PO HS 02/12/21 02/12/21 History Gabapentin [Neurontin] 400 mg PO BID@0900,1700 02/12/21 02/12/21 History Morphine Sulfate ER [Ms Contin] 30 mg PO BID 02/12/21 02/12/21 History Multivit-Min/FA/Lycopen/Lutein 1 tab PO DAILY 02/12/21 02/12/21 History [Centrum Silver Men Tablet] Vitamin C 125mg Gummy 125 mg PO DAILY 02/12/21 02/12/21 History Allergies Allergy/AdvReac Type Severity Reaction Status Date / Time Penicillins Allergy Rash/Hives Verified 02/12/21 17:20 Physical Exam Vitals: Vital Signs Pulse Resp BP Pulse Ox 02/13/21 11:29 94 02/13/21 11:19 92 02/13/21 09:06 90 02/13/21 09:01 84 02/13/21 09:00 84 02/13/21 08:50 84 02/12/21 23:00 82 20 123/87 02/12/21 19:55 92 18 141/73 95 Intake and Output 02/12/21 02/13/21 02/13/21 22:59 06:59 14:59 Intake Total 40 Balance 40 Intake: Intake, IV Titration 40 Amount Sodium Chloride 0.9% 1, 40 000 ml @ 75 mls/hr IV . [id number] [facility] Rx#:[id number] Other: Weight 96.615 kg Results CBC & Chem 7: 02/13/21 03:42 02/14/21 06:08 Labs: Abnormal Lab Results - Last 24 Hours (Table) 02/12/21 02/12/21 02/12/21 Range/Units 17:32 17:32 17:32 WBC 11.4 H (3.8-10.6) k/uL RBC (4.40-5.60) X 10*6/uL Hgb (13.0-17.0) g/dL Hct (39.6-50.0) % Neutrophils # 8.3 H (1.3-7.7) k/uL Eosinophils # (0.04-0.35) X 10*3/uL Sodium 135 L (137-145) mmol/L BUN/Creatinine Ratio (12.00-20.00) Ratio Glucose 139 H (74-99) mg/dL POC Glucose (mg/dL) (75-99) mg/dL Plasma Lactic Acid Jatin 2.2 H* (0.7-2.0) mmol/L 02/12/21 02/13/21 02/13/21 Range/Units 20:56 03:42 03:42 WBC (3.8-10.6) k/uL RBC 3.97 L (4.40-5.60) X 10*6/uL Hgb 12.6 L (13.0-17.0) g/dL Hct 37.9 L (39.6-50.0) % Neutrophils # (1.3-7.7) k/uL Eosinophils # 0.43 H (0.04-0.35) X 10*3/uL Sodium (137-145) mmol/L BUN/Creatinine Ratio 20.22 H (12.00-20.00) Ratio Glucose 154 H (74-99) mg/dL POC Glucose (mg/dL) (75-99) mg/dL Plasma Lactic Acid Jatin 2.7 H* (0.7-2.0) mmol/L 02/13/21 02/13/21 Range/Units 08:11 12:20 WBC (3.8-10.6) k/uL RBC (4.40-5.60) X 10*6/uL Hgb (13.0-17.0) g/dL Hct (39.6-50.0) % Neutrophils # (1.3-7.7) k/uL Eosinophils # (0.04-0.35) X 10*3/uL Sodium (137-145) mmol/L BUN/Creatinine Ratio (12.00-20.00) Ratio Glucose (74-99) mg/dL POC Glucose (mg/dL) 160 H 262 H (75-99) mg/dL Plasma Lactic Acid Jatin (0.7-2.0) mmol/L
[2021-02-14 11:44] LABS: Glucose,Whole Blood 296 mg/dL (75-99)
[2021-02-14] MEDS: FENOFIBRATE 160 MG TAB PO SCH (13:12)
[2021-02-14] MEDS: SODIUM CHLORIDE 0.9% 1,000 ML IV SCH ×2 (13:12→23:59)
--- NOTE | 2021-02-14 14:24 | P.PN ---
Subjective Progress Note Date: 02/14/21 Principal diagnosis: COPD exacerbation 80-year-old male who presents to the emergency department on February 12, complaining of lower extremity edema, as well as an infection in the toes of his right foot. In addition, patient complains of shortness of breath, cough, and wheezing. He is coughing up some occasional phlegm. I don't believe he came to the emergency department primarily for the lung issues, though he does have severe COPD. I see him in the office for his COPD. Currently, he's on saline at 20 mL an hour, and nasal O2 at 3 L. For his right lower extremity cellulitis, and foot infection, he is getting Ancef and vancomycin. The patient was seen in the emergency department, in room 21. As mentioned, the patient is on 3 L nasal cannula and saline at 20 mL an hour. White count 9.97, hemoglobin 12.6, hematocrit 37.9, platelet count 270,000. Sodium, potassium, chloride, CO2, anion gap, BUN, and creatinine are all normal. Initial lactic acid was 2.7, and repeat was 1.6. Chest x-rays consistent with underlying COPD, but no acute processes is noted. The patient is seen today 02/14/2021 in follow-up on the regular medical floor. He is currently sitting up in a chair at the bedside. Awake and alert in no acute distress. He is maintaining O2 saturations in the 90s on 3 L/m per nasal cannula. She's been afebrile. Hemodynamically stable. Sodium 135. Potassium 5.1. Creatinine 0.69. Glucose 252. He remains on DuoNeb inhalations, Pulmicort and Perforomist inhalations, IV Solu-Medrol. 0.9 normal saline @ 75 ML's per hour. Wound cultures from the right foot are pending. Vancomycin discontinued, initiated on on cefazolin per ID services. Anticoagulated with Eliquis. Objective - Vital Signs Vital signs: Vital Signs Temp 98.1 F 02/14/21 07:00 Pulse 96 02/14/21 12:11 Resp 20 02/14/21 07:00 BP 137/78 02/14/21 07:00 Pulse Ox 95 02/14/21 07:00 Intake & Output 02/13/21 02/14/21 02/14/21 18:59 06:59 18:59 Intake Total 220 118 Balance 220 118 Intake: Intake, IV Titration 40 Amount Sodium Chloride 0.9% 1, 40 000 ml @ 75 mls/hr IV . [id number] [facility] Rx#:[id number] Oral 180 118 Other: # Voids 3 2 # Bowel Movements 1 - Exam GENERAL EXAM: Alert, doesn't 80-year-old gentleman, on 3 L nasal cannula comfortable in no apparent distress. HEAD: Normocephalic. EYES: Normal reaction of pupils, equal size. NOSE: Clear with pink turbinates. THROAT: No erythema or exudates. NECK: No masses, no JVD. CHEST: No chest wall deformity. LUNGS: Equal air entry with bilateral end expiratory wheeze. CVS: S1 and S2 normal with no audible murmur, regular rhythm. ABDOMEN: No hepatosplenomegaly, normal bowel sounds, no guarding or rigidity. SPINE: No scoliosis or deformity SKIN: Dressing to the right foot dry and intact CENTRAL NERVOUS SYSTEM: No focal deficits, tone is normal in all 4 extremities. EXTREMITIES: There is 1 plus peripheral edema. No clubbing, no cyanosis. Peripheral pulses are intact. - Labs CBC & Chem 7: 02/13/21 03:42 02/14/21 06:08 Labs: Abnormal Lab Results - Last 24 Hours (Table) 02/13/21 02/13/21 02/14/21 Range/Units 17:00 19:59 06:08 Sodium 135 L (137-145) mmol/L Glucose 267 H (74-99) mg/dL POC Glucose (mg/dL) 275 H 380 H (75-99) mg/dL 02/14/21 02/14/21 Range/Units 07:25 11:43 Sodium (137-145) mmol/L Glucose (74-99) mg/dL POC Glucose (mg/dL) 252 H 296 H (75-99) mg/dL Microbiology - Last 24 Hours (Table) 02/13/21 12:30 Gram Stain - Preliminary Foot - Right Wound Culture - Preliminary 02/13/21 12:30 Anaerobic Culture - Preliminary Foot - Right Assessment and Plan Assessment: 1 Acute exacerbation of COPD. 2 Bilateral lower extremity edema, with cellulitis. 3 History of chronic atrial fibrillation. 4 History of CHF. 5 History of diabetes mellitus. 6 History of hyperlipidemia. 7 History of hypertension. 8 History of myocardial infarction, status post coronary artery stenting. 9 Peripheral vascular occlusive disease. 10 Ongoing tobacco use with nicotine addiction. Plan: The patient was seen and evaluated by Dr. Marvel Shah from the pulmonary standpoint Continue bronchodilators, decrease steroids Titrate the FiO2 as tolerated We will continue to follow I, the cosigning physician, performed a history & physical examination of the patient. Lungs sounds bilateral end expiratory wheeze. Maintaining good O2 saturations in the 90s on 2 L/m per nasal cannula. I discussed the assessment and plan of care with my nurse practitioner, Crissy Moreau. I attest to the above note as dictated by her.
[2021-02-14 17:20] LABS: Glucose,Whole Blood 372 mg/dL (75-99)
[2021-02-14] MEDS ORDERED: VANCOMYCIN TROUGH DUE 1 EACH MISC MISCELLANE ONE (19:00)
[2021-02-14 19:39] LABS: Glucose,Whole Blood 320 mg/dL (75-99)
[2021-02-14] MEDS: DULoxetine HCL 60 MG CAPSULE.DR PO SCH (20:12)
[2021-02-14] MEDS: CLOPIDOGREL 75 MG TAB PO SCH (20:12)
--- NOTE | 2021-02-14 20:25 | P.PN ---
Subjective This is a pleasant 80 years old male with past medical history of Atrial Fibrillation on Eliquis, Heart Failure, COPD, Diabetes Mellitus, Hyperlipidemia, Hypertension, peripheral neuropathy, peripheral vascular disease with previous stenting of the left lower extremity and previous vascular surgery in the right leg, frequent falls, chronic hypoxic respiratory failure maintained on oxygen at 3 L/m nasal cannula, restless leg syndrome, chronic back pain, He presents with bilateral feel redness, swelling pain and some purulent discharge for about 4 days, mainly on the right foot. He does not feel pain in the Vitals stable. Elevated lactic acid came back to normal. Has mild leukocytosis of 11.4. BMP and liver enzymes are unremarkable. ProBNP is 1860. Coronavirus not detected. Chest x-ray: No acute process. On admission he was started on IV vancomycin and received 1 dose of cefazolin 02/14/2021 Patient still with bilateral feet cellulitis and terminates on antibiotics with IV vancomycin and cefazolin. Wound cultures are pending.. Patient remains on IV vancomycin and cefazolin pending final results of wound culture. Patient denies dyspnea or chest pain or coughing while at rest. Hemodynamically stable. Glucose elevated more than 300 while he started on steroids. We will start Levemir 10 units at bedtime while he is on steroids. Continue with gentle hydration while he has infection and on IV vancomycin. He is also on Eliquis which is home medication. Objective - Vital Signs Vital signs: Vital Signs Temp 98.1 F 02/14/21 07:00 Pulse 96 02/14/21 12:11 Resp 20 02/14/21 07:00 BP 137/78 02/14/21 07:00 Pulse Ox 95 02/14/21 07:00 Intake & Output 02/13/21 02/14/21 02/14/21 18:59 06:59 18:59 Intake Total 220 118 Balance 220 118 Intake: Intake, IV Titration 40 Amount Sodium Chloride 0.9% 1, 40 000 ml @ 75 mls/hr IV . [id number] [facility] Rx#:[id number] Oral 180 118 Other: # Voids 3 2 # Bowel Movements 1 - Exam GENERAL: The patient is alert and oriented x3, not in any acute distress. Well developed, well nourished. HEENT: Pupils are round and equally reacting to light. EOMI. No scleral icterus. No conjunctival pallor. Normocephalic, atraumatic. No pharyngeal erythema. No thyromegaly. CARDIOVASCULAR: S1 and S2 present. No murmurs, rubs, or gallops. PULMONARY: Chest is clear to auscultation, no wheezing or crackles. ABDOMEN: Soft, nontender, nondistended, normoactive bowel sounds. No palpable organomegaly. MUSCULOSKELETAL: No joint swelling or deformity. -EXTREMITIES: No cyanosis, clubbing, or pedal edema. Foot cellulitis. Both feet are red inflamed and with purulent discharge, more on the right side NEUROLOGICAL: Gross neurological examination did not reveal any focal deficits. SKIN: No rashes. No petechiae - Labs CBC & Chem 7: 02/13/21 03:42 02/14/21 06:08 Labs: Abnormal Lab Results - Last 24 Hours (Table) 02/13/21 02/13/21 02/14/21 Range/Units 17:00 19:59 06:08 Sodium 135 L (137-145) mmol/L Glucose 267 H (74-99) mg/dL POC Glucose (mg/dL) 275 H 380 H (75-99) mg/dL 02/14/21 02/14/21 Range/Units 07:25 11:43 Sodium (137-145) mmol/L Glucose (74-99) mg/dL POC Glucose (mg/dL) 252 H 296 H (75-99) mg/dL Microbiology - Last 24 Hours (Table) 02/13/21 12:30 Gram Stain - Preliminary Foot - Right Wound Culture - Preliminary 02/13/21 12:30 Anaerobic Culture - Preliminary Foot - Right Assessment and Plan Assessment: Acute right more than left foot cellulitis Paroxysmal atrial fibrillation on Eliquis Chronic heart failure, no acute exacerbation COPD, not in acute exacerbation Lantus Hypertension Hyperlipidemia Diabetic neuropathy History of Peripheral vascular disease status post stenting History of Frequent falls Plan: This is a pleasant 80 years old male who presents with right foot cellulitis Continue with antibiotic per ID team recommendation, currently is on IV vancomycin pharmacy to dose of cefazolin. Follow-up wound culture Continue gentle hydration Labs and medication were reviewed.. Continue same treatment. Continue with symptomatic treatment. Resume home medication. Monitor lytes and vitals. DVT and GI prophylaxis. Further recommendations depends on the clinical course of the patient DVT prophylaxis: Eliquis GI Prophylaxis: Pepcid PT/OT: Pending
[2021-02-14] MEDS: INSULIN DETEMIR (LEVEMIR) 100 UNIT/ML SYR SQ SCH (20:47)
[2021-02-15] MEDS: DILTIAZEM ORAL 30 MG TAB PO SCH ×3 (06:25→23:11)
[2021-02-15 07:28] LABS: Glucose,Whole Blood 277 mg/dL (75-99)
[2021-02-15] MEDS: ATORVASTATIN 40 MG TAB PO SCH (08:12)
[2021-02-15] MEDS: MORPHINE SULFATE ER 30 MG TABLET PO SCH ×2 (08:12→20:13)
[2021-02-15] MEDS: FAMOTIDINE 20 MG/2 ML VIAL IV SCH (08:12)
[2021-02-15] MEDS: atenoloL 25 MG TAB PO SCH (08:14)
[2021-02-15] MEDS: APIXABAN 5 MG TAB PO SCH ×2 (08:14→20:14)
[2021-02-15] MEDS: busPIRone HCl 5 MG TAB PO SCH ×2 (08:14→20:13)
[2021-02-15] MEDS: GABAPENTIN 400 MG CAP PO SCH ×2 (08:14→17:25)
[2021-02-15] MEDS: INSULIN ASPART (NovoLOG) 100 UNIT/ML VIAL SQ SCH ×4 (08:23→20:14)
[2021-02-15] MEDS: methylPREDNISolone SOD SUCCI 40 MG/ML 1 ML VIAL IV SCH ×3 (08:24→23:10)
[2021-02-15] MEDS: IPRATROPIUM-ALBUTEROL 3 ML NEB INHALATION SCH ×4 (08:38→20:49)
[2021-02-15] MEDS: BUDESONIDE 1 MG/2 ML NEBU INHALATION SCH ×2 (08:38→20:49)
[2021-02-15] MEDS: FORMOTEROL FUMARATE 20 MCG/2 ML NEBU INHALATION SCH ×2 (08:39→20:49)
[2021-02-15 09:14] LABS: African American GFR (CKD) 65 (>60 ml/min/1.73 sqM); Anion Gap 8 mmol/L; Blood Urea Nitrogen 32 mg/dL (9-20); Calcium 9.3 mg/dL (8.4-10.2); Carbon Dioxide 24 mmol/L (22-30); Chloride 105 mmol/L (98-107); Glucose 298 mg/dL (74-99); Non-African American GFR(CKD) 56 (>60 ml/min/1.73 sqM); Potassium 5.1 mmol/L (3.5-5.1); Sodium 137 mmol/L (137-145)
--- NOTE | 2021-02-15 09:19 | PN ---
PROGRESS NOTE DATE OF SERVICE: 02/14/2021 REASON FOR FOLLOWUP: Bilateral foot cellulitis. INTERVAL HISTORY: Patient is afebrile. The patient is currently breathing comfortably. Still complaining of pain and discomfort to the foot area. The patient apparently also has a sore to the right area has been reported by the . No chest pain, shortness of breath or cough. No abdominal pain. No diarrhea. PHYSICAL EXAMINATION: Blood pressure 152/92 with a pulse of 99, temperature 99.5. He is 91% on room air. General description is an elderly male up in the chair in no distress. Respiratory system: Unlabored breathing, clear to auscultation anteriorly. Heart S1, S2. Regular rate and rhythm. Abdomen soft, no tenderness. Right gluteal area with stage I pressure ulcer. No cellulitis. Bilateral foot with swelling, redness and evidence of athlete's foot. DIAGNOSTIC IMPRESSION AND PLAN: 1. Patient with bilateral foot cellulitis, right greater than the left in this patient who did have evidence of athlete's foot. We will add nystatin powder in between the toes. Continue cefazolin. 2. Patient with stage I right gluteal pressure ulcer. No cellulitis. Local care with skin barrier cream. 3. Continue supportive care. MMODL / IJN: [id number] /
[2021-02-15 12:15] LABS: Glucose,Whole Blood 290 mg/dL (75-99)
[2021-02-15] MEDS: FENOFIBRATE 160 MG TAB PO SCH (12:28)
[2021-02-15] MEDS: NYSTATIN 100,000 UNIT/GM POWD 15 GM TOPICAL SCH (12:28)
[2021-02-15] MEDS: SODIUM CHLORIDE 0.9% 1,000 ML IV SCH (14:38)
[2021-02-15] MEDS ORDERED: hydrALAZINE HCL 50 MG TAB PO PRN (15:01)
--- NOTE | 2021-02-15 15:02 | P.PN ---
Subjective This is a pleasant 80 years old male with past medical history of Atrial Fibrillation on Eliquis, Heart Failure, COPD, Diabetes Mellitus, Hyperlipidemia, Hypertension, peripheral neuropathy, peripheral vascular disease with previous stenting of the left lower extremity and previous vascular surgery in the right leg, frequent falls, chronic hypoxic respiratory failure maintained on oxygen at 3 L/m nasal cannula, restless leg syndrome, chronic back pain, He presents with bilateral feel redness, swelling pain and some purulent discharge for about 4 days, mainly on the right foot. He does not feel pain in the Vitals stable. Elevated lactic acid came back to normal. Has mild leukocytosis of 11.4. BMP and liver enzymes are unremarkable. ProBNP is 1860. Coronavirus not detected. Chest x-ray: No acute process. On admission he was started on IV vancomycin and received 1 dose of cefazolin 02/14/2021 Patient still with bilateral feet cellulitis and terminates on antibiotics with IV vancomycin and cefazolin. Wound cultures are pending.. Patient remains on IV vancomycin and cefazolin pending final results of wound culture. Patient denies dyspnea or chest pain or coughing while at rest. Hemodynamically stable. Glucose elevated more than 300 while he started on steroids. We will start Levemir 10 units at bedtime while he is on steroids. Continue with gentle hydration while he has infection and on IV vancomycin. He is also on Eliquis which is home medication. 02/15/2021 Patient generally doing well, his breathing improving gradually and slowly, however IV Solu-Medrol and switched to tapered prednisone upon discharge. No other new complaints. Blood pressure was elevated 182/94 most likely secondary to steroid effect. And normal saline. Stop normal saline. At hydralazine as needed He remains on antibiotic cefazolin. Wound culture growing presumptive staph but final result is pending Objective - Vital Signs Vital signs: Vital Signs Temp 97.5 F L 02/15/21 14:11 Pulse 79 02/15/21 14:11 Resp 17 02/15/21 14:11 BP 182/94 02/15/21 14:11 Pulse Ox 95 02/15/21 14:11 Intake & Output 02/14/21 02/15/21 02/15/21 18:59 06:59 18:59 Intake Total 118 118 Balance 118 118 Weight 101.7 kg Intake: Oral 118 118 Other: # Voids 6 1 3 # Bowel Movements 1 - Exam GENERAL: The patient is alert and oriented x3, not in any acute distress. Well developed, well nourished. HEENT: Pupils are round and equally reacting to light. EOMI. No scleral icterus. No conjunctival pallor. Normocephalic, atraumatic. No pharyngeal erythema. No thyromegaly. CARDIOVASCULAR: S1 and S2 present. No murmurs, rubs, or gallops. PULMONARY: Chest is clear to auscultation, no wheezing or crackles. ABDOMEN: Soft, nontender, nondistended, normoactive bowel sounds. No palpable organomegaly. MUSCULOSKELETAL: No joint swelling or deformity. -EXTREMITIES: No cyanosis, clubbing, or pedal edema. Foot cellulitis. Both feet are red inflamed and with purulent discharge, more on the right side NEUROLOGICAL: Gross neurological examination did not reveal any focal deficits. SKIN: No rashes. No petechiae - Labs CBC & Chem 7: 02/13/21 03:42 02/15/21 07:35 Labs: Abnormal Lab Results - Last 24 Hours (Table) 02/14/21 02/14/21 02/15/21 Range/Units 17:17 19:37 07:27 BUN (9-20) mg/dL Glucose (74-99) mg/dL POC Glucose (mg/dL) 372 H 320 H 277 H (75-99) mg/dL 02/15/21 02/15/21 Range/Units 07:35 12:09 BUN 32 H (9-20) mg/dL Glucose 298 H (74-99) mg/dL POC Glucose (mg/dL) 290 H (75-99) mg/dL Microbiology - Last 24 Hours (Table) 02/13/21 12:30 Gram Stain - Preliminary Foot - Right Wound Culture - Preliminary Presumptive Staph aureus Assessment and Plan Assessment: Acute right more than left foot cellulitis, secondary to staff Paroxysmal atrial fibrillation on Eliquis Chronic heart failure, no acute exacerbation COPD, not in acute exacerbation Lantus Hypertension Hyperlipidemia Diabetic neuropathy History of Peripheral vascular disease status post stenting History of Frequent falls Plan: This is a pleasant 80 years old male who presents with right foot cellulitis Continue with antibiotic per ID team recommendation, currently is on cefazolin. Follow-up wound culture, presumptive staph pending final results. Continue IV fluids When necessary hydralazine and monitor blood pressure Labs and medication were reviewed.. Continue same treatment. Continue with symptomatic treatment. Resume home medication. Monitor lytes and vitals. DVT and GI prophylaxis. Further recommendations depends on the clinical course of the patient DVT prophylaxis: Eliquis GI Prophylaxis: Pepcid PT/OT: Pending
--- NOTE | 2021-02-15 16:39 | PN ---
PROGRESS NOTE DATE OF SERVICE: 02/15/2021 REASON FOR FOLLOWUP: Lower extremity cellulitis. INTERVAL HISTORY: The patient is afebrile. The patient is currently breathing comfortably. The patient denies having any chest pain or shortness of breath or cough. No abdominal pain or worsening pain to the foot area. PHYSICAL EXAMINATION: Blood pressure 182/94, pulse of 79, temperature 97.5. He is 95% on 3 L nasal cannula. General description is an elderly male up in the bed in no distress. Respiratory system: Unlabored breathing, clear to auscultation anteriorly. Heart S1, S2. Regular rate and rhythm. Abdomen soft, no tenderness. Legs are currently wrapped. No obvious drainage on the dressing. LABS: BUN of 32, creatinine is 1.21. DIAGNOSTIC IMPRESSION AND PLAN: 1. Patient with bilateral foot swelling and redness. Culture showing presumptive Staphylococcus aureus, likely MSSA. Patient to continue with cefazolin. 2. Right gluteal stage II ulcer. Local care . MMODL / IJN: [id number] /
[2021-02-15 17:03] LABS: Glucose,Whole Blood 322 mg/dL (75-99)
--- NOTE | 2021-02-15 18:29 | P.PN ---
Subjective Progress Note Date: 02/15/21 Principal diagnosis: COPD exacerbation 80-year-old male who presents to the emergency department on February 12, complaining of lower extremity edema, as well as an infection in the toes of his right foot. In addition, patient complains of shortness of breath, cough, and wheezing. He is coughing up some occasional phlegm. I don't believe he came to the emergency department primarily for the lung issues, though he does have severe COPD. I see him in the office for his COPD. Currently, he's on saline at 20 mL an hour, and nasal O2 at 3 L. For his right lower extremity cellulitis, and foot infection, he is getting Ancef and vancomycin. The patient was seen in the emergency department, in room 21. As mentioned, the patient is on 3 L nasal cannula and saline at 20 mL an hour. White count 9.97, hemoglobin 12.6, hematocrit 37.9, platelet count 270,000. Sodium, potassium, chloride, CO2, anion gap, BUN, and creatinine are all normal. Initial lactic acid was 2.7, and repeat was 1.6. Chest x-rays consistent with underlying COPD, but no acute processes is noted. The patient is seen today 02/14/2021 in follow-up on the regular medical floor. He is currently sitting up in a chair at the bedside. Awake and alert in no acute distress. He is maintaining O2 saturations in the 90s on 3 L/m per nasal cannula. She's been afebrile. Hemodynamically stable. Sodium 135. Potassium 5.1. Creatinine 0.69. Glucose 252. He remains on DuoNeb inhalations, Pulmicort and Perforomist inhalations, IV Solu-Medrol. 0.9 normal saline @ 75 ML's per hour. Wound cultures from the right foot are pending. Vancomycin discontinued, initiated on on cefazolin per ID services. Anticoagulated with Eliquis. The patient is seen today 02/15/2021 in follow-up on the regular medical floor. He is currently sitting up in a chair at the bedside. Awake and alert in no acute distress. He is maintaining good O2 saturation in the 90s on 3 L/m per nasal cannula. He does have a loose nonproductive cough. Still dyspneic on exertion. Some wheezing. Right foot wound culture is showing presumptive staph aureus. 137. Potassium 5.1. Creatinine 1.21. Glucose 298. He remains on DuoNeb inhalations, Pulmicort and Perforomist inhalations, IV Solu-Medrol. Antibiotics in the form of cefazolin. Anticoagulated with Eliquis. Objective - Vital Signs Vital signs: Vital Signs Temp 97.5 F L 02/15/21 14:11 Pulse 88 02/15/21 16:09 Resp 17 02/15/21 14:11 BP 182/94 02/15/21 14:11 Pulse Ox 95 02/15/21 14:11 Intake & Output 02/14/21 02/15/21 02/15/21 18:59 06:59 18:59 Intake Total 118 118 Balance 118 118 Weight 101.7 kg Intake: Oral 118 118 Other: # Voids 6 1 3 # Bowel Movements 1 - Exam GENERAL EXAM: Alert, doesn't 80-year-old gentleman, on 3 L nasal cannula comfortable in no apparent distress. HEAD: Normocephalic. EYES: Normal reaction of pupils, equal size. NOSE: Clear with pink turbinates. THROAT: No erythema or exudates. NECK: No masses, no JVD. CHEST: No chest wall deformity. LUNGS: Equal air entry with bilateral end expiratory wheeze. CVS: S1 and S2 normal with no audible murmur, regular rhythm. ABDOMEN: No hepatosplenomegaly, normal bowel sounds, no guarding or rigidity. SPINE: No scoliosis or deformity SKIN: Dressing to the right foot dry and intact CENTRAL NERVOUS SYSTEM: No focal deficits, tone is normal in all 4 extremities. EXTREMITIES: There is 1 plus peripheral edema. No clubbing, no cyanosis. Peripheral pulses are intact. - Labs CBC & Chem 7: 02/13/21 03:42 02/15/21 07:35 Labs: Abnormal Lab Results - Last 24 Hours (Table) 02/14/21 02/15/21 02/15/21 Range/Units 19:37 07:27 07:35 BUN 32 H (9-20) mg/dL Glucose 298 H (74-99) mg/dL POC Glucose (mg/dL) 320 H 277 H (75-99) mg/dL 02/15/21 02/15/21 Range/Units 12:09 17:00 BUN (9-20) mg/dL Glucose (74-99) mg/dL POC Glucose (mg/dL) 290 H 322 H (75-99) mg/dL Microbiology - Last 24 Hours (Table) 02/13/21 12:30 Gram Stain - Preliminary Foot - Right Wound Culture - Preliminary Presumptive Staph aureus Assessment and Plan Assessment: 1 Acute exacerbation of COPD. 2 Bilateral lower extremity edema, with cellulitis. Culture of the right foot wound positive for presumptive staph aureus, currently on cefazolin 3 History of chronic atrial fibrillation. 4 History of CHF. 5 History of diabetes mellitus. 6 History of hyperlipidemia. 7 History of hypertension. 8 History of myocardial infarction, status post coronary artery stenting. 9 Peripheral vascular occlusive disease. 10 Ongoing tobacco use with nicotine addiction. Plan: The patient was seen and evaluated by Dr. Grier Continue bronchodilators, decrease steroids Titrate the FiO2 as tolerated Continue antibiotics Follow-up chest x-ray in the a.m. We will continue to follow I, the cosigning physician, performed a history & physical examination of the patient. Lungs sounds bilateral end expiratory wheeze. Maintaining good O2 saturations in the 90s on 3 L/m per nasal cannula. I discussed the assessment and plan of care with my nurse practitioner, Crissy Moreau. I attest to the above note as dictated by her.
[2021-02-15 20:08] LABS: Glucose,Whole Blood 394 mg/dL (75-99)
[2021-02-15] MEDS: DULoxetine HCL 60 MG CAPSULE.DR PO SCH (20:13)
[2021-02-15] MEDS: INSULIN DETEMIR (LEVEMIR) 100 UNIT/ML SYR SQ SCH (20:14)
[2021-02-15] MEDS: FAMOTIDINE 20 MG TAB PO SCH (20:14)
[2021-02-15] MEDS: CLOPIDOGREL 75 MG TAB PO SCH (20:14)
[2021-02-15] MEDS ORDERED: METOPROLOL TARTRATE 50 MG TAB PO SCH (21:00)
[2021-02-16] MEDS: DILTIAZEM ORAL 30 MG TAB PO SCH ×3 (05:54→22:44)
--- NOTE | 2021-02-16 07:35 | XR ---
EXAMINATION TYPE: XR chest 1V portable DATE OF EXAM: 02/16/2021 CLINICAL HISTORY: Difficulty breathing, congestion, and COPD progress study. TECHNIQUE: Single AP portable upright view of the chest is obtained. COMPARISON: Chest x-ray from 4 days earlier FINDINGS: Chronic parenchymal changes bilaterally. Diminished inspiration with developing peripheral left lung opacities. Cardiac silhouette size mildly enlarged with atherosclerotic thoracic aorta. Ne w tiny bilateral pleural effusions. New mild interstitial edema. Osseous structures are demineralized . Surgical change right shoulder partially imaged similar to prior. IMPRESSION: Mild cardiomegaly and chronic parenchymal changes with mild interstitial edema and tiny b ilateral pleural effusions suggesting developing CHF exacerbation. Findings of additional left midlun g opacities are concerning raising concern for possible covid-19 infection, correlate clinically. A Yellow level critical message alert has been initiated for Parisa Rutherford MD via the [employer] Critical Results System on 02/16/2021 7:32 AM. This message alert has been sent to Parisa Rutherford MD via the preferences provided by the clinician for the receipt of Radiology Critical Findings. [employer] e ID [id number].
[2021-02-16 07:41] LABS: Glucose,Whole Blood 228 mg/dL (75-99)
[2021-02-16] MEDS: BUDESONIDE 1 MG/2 ML NEBU INHALATION SCH ×2 (08:23→20:40)
[2021-02-16] MEDS: IPRATROPIUM-ALBUTEROL 3 ML NEB INHALATION SCH ×4 (08:24→20:40)
[2021-02-16] MEDS: atenoloL 25 MG TAB PO SCH (08:24)
[2021-02-16] MEDS: GABAPENTIN 400 MG CAP PO SCH ×2 (08:24→17:39)
[2021-02-16] MEDS: ATORVASTATIN 40 MG TAB PO SCH (08:24)
[2021-02-16] MEDS: APIXABAN 5 MG TAB PO SCH ×2 (08:24→21:13)
[2021-02-16] MEDS: FAMOTIDINE 20 MG TAB PO SCH ×2 (08:24→21:13)
[2021-02-16] MEDS: busPIRone HCl 5 MG TAB PO SCH ×2 (08:24→21:13)
[2021-02-16] MEDS: FORMOTEROL FUMARATE 20 MCG/2 ML NEBU INHALATION SCH ×2 (08:24→20:40)
[2021-02-16] MEDS: INSULIN ASPART (NovoLOG) 100 UNIT/ML VIAL SQ SCH ×4 (08:25→21:13)
[2021-02-16] MEDS: FENOFIBRATE 160 MG TAB PO SCH (08:25)
[2021-02-16] MEDS: methylPREDNISolone SOD SUCCI 40 MG/ML 1 ML VIAL IV SCH ×2 (08:25→16:10)
[2021-02-16] MEDS: MORPHINE SULFATE ER 30 MG TABLET PO SCH ×2 (10:19→21:14)
[2021-02-16] MEDS: NYSTATIN 100,000 UNIT/GM POWD 15 GM TOPICAL SCH (10:19)
[2021-02-16 12:16] LABS: Glucose,Whole Blood 320 mg/dL (75-99)
[2021-02-16] MEDS: NICOTINE 14MG/24HR PATCH TRANSDERM SCH (14:49)
--- NOTE | 2021-02-16 16:08 | P.PN ---
Subjective Progress Note Date: 02/16/21 Principal diagnosis: COPD exacerbation 80-year-old male who presents to the emergency department on February 12, complaining of lower extremity edema, as well as an infection in the toes of his right foot. In addition, patient complains of shortness of breath, cough, and wheezing. He is coughing up some occasional phlegm. I don't believe he came to the emergency department primarily for the lung issues, though he does have severe COPD. I see him in the office for his COPD. Currently, he's on saline at 20 mL an hour, and nasal O2 at 3 L. For his right lower extremity cellulitis, and foot infection, he is getting Ancef and vancomycin. The patient was seen in the emergency department, in room 21. As mentioned, the patient is on 3 L nasal cannula and saline at 20 mL an hour. White count 9.97, hemoglobin 12.6, hematocrit 37.9, platelet count 270,000. Sodium, potassium, chloride, CO2, anion gap, BUN, and creatinine are all normal. Initial lactic acid was 2.7, and repeat was 1.6. Chest x-rays consistent with underlying COPD, but no acute processes is noted. The patient is seen today 02/14/2021 in follow-up on the regular medical floor. He is currently sitting up in a chair at the bedside. Awake and alert in no acute distress. He is maintaining O2 saturations in the 90s on 3 L/m per nasal cannula. She's been afebrile. Hemodynamically stable. Sodium 135. Potassium 5.1. Creatinine 0.69. Glucose 252. He remains on DuoNeb inhalations, Pulmicort and Perforomist inhalations, IV Solu-Medrol. 0.9 normal saline @ 75 ML's per hour. Wound cultures from the right foot are pending. Vancomycin discontinued, initiated on on cefazolin per ID services. Anticoagulated with Eliquis. The patient is seen today 02/15/2021 in follow-up on the regular medical floor. He is currently sitting up in a chair at the bedside. Awake and alert in no acute distress. He is maintaining good O2 saturation in the 90s on 3 L/m per nasal cannula. He does have a loose nonproductive cough. Still dyspneic on exertion. Some wheezing. Right foot wound culture is showing presumptive staph aureus. 137. Potassium 5.1. Creatinine 1.21. Glucose 298. He remains on DuoNeb inhalations, Pulmicort and Perforomist inhalations, IV Solu-Medrol. Antibiotics in the form of cefazolin. Anticoagulated with Eliquis. The patient is seen today 02/16/2021 in follow-up on the regular medical floor. He is currently sitting up in a chair at the bedside. Awake and alert in no acute distress. He is maintaining O2 saturations in the mid 90s on 3 L/m per nasal cannula. Chest x-ray reveals mild cardiomegaly and chronic parenchymal changes with mild interstitial edema and tiny bilateral pleural effusions suggesting CHF exacerbation. There is also additional left midlung opacities raising concern for possible COVID-19 infection per radiologist. He tested negative on 02/12/2021. Right foot wound culture was positive for MSSA and group D enterococcus. He remains on cefazolin. He is continued on bronchodilators, IV Solu-Medrol. He is a bit antsy as he has not smoked since admission. Objective - Vital Signs Vital signs: Vital Signs Temp 97.5 F L 02/16/21 15:26 Pulse 96 02/16/21 15:26 Resp 16 02/16/21 15:26 BP 165/77 02/16/21 15:26 Pulse Ox 95 02/16/21 15:26 Intake & Output 02/15/21 02/16/21 02/16/21 18:59 06:59 18:59 Intake Total 118 118 Balance 118 118 Intake: Oral 118 118 Other: Voiding Method Toilet Toilet # Voids 3 1 1 # Bowel Movements 1 - Exam GENERAL EXAM: Alert, doesn't 80-year-old gentleman, on 3 L nasal cannula comfortable in no apparent distress. HEAD: Normocephalic. EYES: Normal reaction of pupils, equal size. NOSE: Clear with pink turbinates. THROAT: No erythema or exudates. NECK: No masses, no JVD. CHEST: No chest wall deformity. LUNGS: Equal air entry with bilateral end expiratory wheeze. CVS: S1 and S2 normal with no audible murmur, regular rhythm. ABDOMEN: No hepatosplenomegaly, normal bowel sounds, no guarding or rigidity. SPINE: No scoliosis or deformity SKIN: Dressing to the right foot dry and intact CENTRAL NERVOUS SYSTEM: No focal deficits, tone is normal in all 4 extremities. EXTREMITIES: There is 1 plus peripheral edema. No clubbing, no cyanosis. Peripheral pulses are intact. - Labs CBC & Chem 7: 02/13/21 03:42 02/15/21 07:35 Labs: Abnormal Lab Results - Last 24 Hours (Table) 02/15/21 02/15/21 02/16/21 Range/Units 17:00 20:06 07:40 POC Glucose (mg/dL) 322 H 394 H 228 H (75-99) mg/dL 02/16/21 Range/Units 12:14 POC Glucose (mg/dL) 320 H (75-99) mg/dL Microbiology - Last 24 Hours (Table) 02/13/21 12:30 Gram Stain - Preliminary Foot - Right Wound Culture - Preliminary Staphylococcus aureus Group D Enterococcus Assessment and Plan Assessment: 1 Acute exacerbation of COPD. 2 Bilateral lower extremity edema, with cellulitis. Culture of the right foot wound positive for presumptive staph aureus, currently on cefazolin 3 History of chronic atrial fibrillation. 4 History of CHF. 5 History of diabetes mellitus. 6 History of hyperlipidemia. 7 History of hypertension. 8 History of myocardial infarction, status post coronary artery stenting. 9 Peripheral vascular occlusive disease. 10 Ongoing tobacco use with nicotine addiction. Plan: The patient was seen and evaluated by Dr. Grier Chest x-ray reviewed, follow-up CoVID screening pending Continue IV Solu-Medrol, bronchodilators Antibiotics per ID services We will continue to follow I, the cosigning physician, performed a history & physical examination of the patient. Lungs sounds bilateral end expiratory wheeze. Maintaining good O2 saturations in the 90s on 3 L/m per nasal cannula. I discussed the assessment and plan of care with my nurse practitioner, Crissy Moreau. I attest to the above note as dictated by her.
[2021-02-16 17:26] LABS: Glucose,Whole Blood 394 mg/dL (75-99)
[2021-02-16 20:41] LABS: Glucose,Whole Blood 422 mg/dL (75-99)
--- NOTE | 2021-02-16 20:49 | P.PN ---
Subjective This is a pleasant 80 years old male with past medical history of Atrial Fibrillation on Eliquis, Heart Failure, COPD, Diabetes Mellitus, Hyperlipidemia, Hypertension, peripheral neuropathy, peripheral vascular disease with previous stenting of the left lower extremity and previous vascular surgery in the right leg, frequent falls, chronic hypoxic respiratory failure maintained on oxygen at 3 L/m nasal cannula, restless leg syndrome, chronic back pain, He presents with bilateral feel redness, swelling pain and some purulent discharge for about 4 days, mainly on the right foot. He does not feel pain in the Vitals stable. Elevated lactic acid came back to normal. Has mild leukocytosis of 11.4. BMP and liver enzymes are unremarkable. ProBNP is 1860. Coronavirus not detected. Chest x-ray: No acute process. On admission he was started on IV vancomycin and received 1 dose of cefazolin 02/14/2021 Patient still with bilateral feet cellulitis and terminates on antibiotics with IV vancomycin and cefazolin. Wound cultures are pending.. Patient remains on IV vancomycin and cefazolin pending final results of wound culture. Patient denies dyspnea or chest pain or coughing while at rest. Hemodynamically stable. Glucose elevated more than 300 while he started on steroids. We will start Levemir 10 units at bedtime while he is on steroids. Continue with gentle hydration while he has infection and on IV vancomycin. He is also on Eliquis which is home medication. 02/15/2021 Patient generally doing well, his breathing improving gradually and slowly, however IV Solu-Medrol and switched to tapered prednisone upon discharge. No other new complaints. Blood pressure was elevated 182/94 most likely secondary to steroid effect. And normal saline. Stop normal saline. At hydralazine as needed He remains on antibiotic cefazolin. Wound culture growing presumptive staph but final result is pending 02/16/2021 patient is alert and oriented, dyspnea is improving. No dyspnea while at rest. He still been treated for bilateral feet cellulitis. Culture is growing MSSA and group D enterococcus. Patient is currently covered with cefazolin. Normal saline and IV vancomycin were discontinued. Also patient continue on Solu-Medrol 40 mg. Daily chest x-ray showing possible CHF or Covid. Covid test is ordered and is pending. Patient also on home dose of Eliquis Glucose is elevated and Levemir increased 10 up to 20 units while he is in the hospital and on steroids. Continue with ISS Objective - Vital Signs Vital signs: Vital Signs Temp 98.0 F 02/16/21 07:00 Pulse 84 02/16/21 11:53 Resp 16 02/16/21 07:00 BP 170/91 02/16/21 07:00 Pulse Ox 96 02/16/21 07:00 Intake & Output 02/15/21 02/16/21 02/16/21 18:59 06:59 18:59 Intake Total 118 Balance 118 Intake: Oral 118 Other: Voiding Method Toilet Toilet # Voids 3 1 1 # Bowel Movements 1 - Exam GENERAL: The patient is alert and oriented x3, not in any acute distress. Well developed, well nourished. HEENT: Pupils are round and equally reacting to light. EOMI. No scleral icterus. No conjunctival pallor. Normocephalic, atraumatic. No pharyngeal erythema. No thyromegaly. CARDIOVASCULAR: S1 and S2 present. No murmurs, rubs, or gallops. PULMONARY: Chest is clear to auscultation, no wheezing or crackles. ABDOMEN: Soft, nontender, nondistended, normoactive bowel sounds. No palpable organomegaly. MUSCULOSKELETAL: No joint swelling or deformity. -EXTREMITIES: No cyanosis, clubbing, or pedal edema. Foot cellulitis. Both feet are red inflamed and with purulent discharge, more on the right side NEUROLOGICAL: Gross neurological examination did not reveal any focal deficits. SKIN: No rashes. No petechiae - Labs CBC & Chem 7: 02/13/21 03:42 02/15/21 07:35 Labs: Abnormal Lab Results - Last 24 Hours (Table) 02/15/21 02/15/21 02/16/21 Range/Units 17:00 20:06 07:40 POC Glucose (mg/dL) 322 H 394 H 228 H (75-99) mg/dL 02/16/21 Range/Units 12:14 POC Glucose (mg/dL) 320 H (75-99) mg/dL Microbiology - Last 24 Hours (Table) 02/13/21 12:30 Gram Stain - Preliminary Foot - Right Wound Culture - Preliminary Staphylococcus aureus Group D Enterococcus Assessment and Plan Assessment: Acute right more than left foot cellulitis, secondary to staff Paroxysmal atrial fibrillation on Eliquis Chronic heart failure, no acute exacerbation COPD, not in acute exacerbation Lantus Hypertension Hyperlipidemia Diabetic neuropathy History of Peripheral vascular disease status post stenting History of Frequent falls Plan: This is a pleasant 80 years old male who presents with right foot cellulitis Continue with antibiotic per ID team recommendation, currently is on cefazolin. Discontinue IV fluids Covid Test pending When necessary hydralazine and monitor blood pressure Labs and medication were reviewed.. Continue same treatment. Continue with symptomatic treatment. Resume home medication. Monitor lytes and vitals. DVT and GI prophylaxis. Further recommendations depends on the clinical course of the patient DVT prophylaxis: Eliquis GI Prophylaxis: Pepcid PT/OT: Pending
[2021-02-16] MEDS: INSULIN DETEMIR (LEVEMIR) 100 UNIT/ML SYR SQ SCH (21:13)
[2021-02-16] MEDS: CLOPIDOGREL 75 MG TAB PO SCH (21:14)
[2021-02-16] MEDS: DULoxetine HCL 60 MG CAPSULE.DR PO SCH (21:14)
[2021-02-17] MEDS: methylPREDNISolone SOD SUCCI 40 MG/ML 1 ML VIAL IV SCH ×3 (00:08→16:22)
--- NOTE | 2021-02-17 02:19 | PN ---
PROGRESS NOTE DATE OF SERVICE: 02/16/2021 REASON FOR FOLLOWUP: Bilateral foot cellulitis. INTERVAL HISTORY: The patient is afebrile. The patient is feeling better. Breathing comfortably. The patient denies having any chest pain. No shortness of breath or cough. No abdominal pain or diarrhea. PHYSICAL EXAMINATION: Blood pressure is 142/80 with a pulse of 73, temperature 98. He is 96% on 2 L nasal cannula. General description is an elderly male up in the chair in no distress. Respiratory system unlabored breathing, decreased breath intensity of breath sounds, no wheeze. Heart S1, S2. Regular rate and rhythm. Abdomen soft, no tenderness. Right foot is currently dressed, no obvious drainage on the dressing. LABS: Wound culture with MSSA. DIAGNOSTIC IMPRESSION AND PLAN: Patient with bilateral wound cellulitis, right greater than left with athlete's foot. Continue cefazolin, transition to oral Keflex on discharge. Local care to continue with nystatin powder and monitor clinical course closely. MMODL / IJN: [id number] /
[2021-02-17] MEDS: DILTIAZEM ORAL 30 MG TAB PO SCH ×3 (05:35→20:49)
[2021-02-17 07:38] LABS: Glucose,Whole Blood 267 mg/dL (75-99)
[2021-02-17] MEDS: INSULIN ASPART (NovoLOG) 100 UNIT/ML VIAL SQ SCH ×4 (08:53→20:48)
[2021-02-17] MEDS: NICOTINE 14MG/24HR PATCH TRANSDERM SCH (08:53)
[2021-02-17] MEDS: FAMOTIDINE 20 MG TAB PO SCH ×2 (08:54→20:48)
[2021-02-17] MEDS: busPIRone HCl 5 MG TAB PO SCH ×2 (08:54→20:48)
[2021-02-17] MEDS: MORPHINE SULFATE ER 30 MG TABLET PO SCH ×2 (08:54→20:49)
[2021-02-17] MEDS: GABAPENTIN 400 MG CAP PO SCH ×2 (08:54→16:22)
[2021-02-17] MEDS: atenoloL 25 MG TAB PO SCH (08:54)
[2021-02-17] MEDS: ATORVASTATIN 40 MG TAB PO SCH (08:55)
[2021-02-17] MEDS: APIXABAN 5 MG TAB PO SCH ×2 (08:55→20:48)
[2021-02-17] MEDS: FENOFIBRATE 160 MG TAB PO SCH (08:55)
[2021-02-17] MEDS: IPRATROPIUM-ALBUTEROL 3 ML NEB INHALATION SCH ×5 (10:14→20:06)
[2021-02-17] MEDS: BUDESONIDE 1 MG/2 ML NEBU INHALATION SCH ×2 (10:14→20:06)
[2021-02-17] MEDS: FORMOTEROL FUMARATE 20 MCG/2 ML NEBU INHALATION SCH ×2 (10:14→20:06)
[2021-02-17 10:45] LABS: Magnesium 2.6 mg/dL (1.5-2.4)
[2021-02-17 10:47] LABS: African American GFR (CKD) 94.6 (60.0-200.0); Anion Gap 9.8 mmol/L (10.00-18.00); BUN/Creat Ratio 30.75 Ratio (12.00-20.00); Blood Urea Nitrogen 26.2 mg/dL (9.0-27.0); Calcium 9.3 mg/dL (8.7-10.3); Carbon Dioxide 28.6 mmol/L (20.0-27.5); Non-African American GFR(CKD) 81.6 (60.0-200.0); Potassium 5.3 mmol/L (3.5-5.5)
[2021-02-17] MEDS: NYSTATIN 100,000 UNIT/GM POWD 15 GM TOPICAL SCH (12:22)
[2021-02-17 12:44] LABS: Glucose,Whole Blood 345 mg/dL (75-99)
--- NOTE | 2021-02-17 16:37 | P.PN ---
Subjective Progress Note Date: 02/17/21 Principal diagnosis: COPD exacerbation 80-year-old male who presents to the emergency department on February 12, complaining of lower extremity edema, as well as an infection in the toes of his right foot. In addition, patient complains of shortness of breath, cough, and wheezing. He is coughing up some occasional phlegm. I don't believe he came to the emergency department primarily for the lung issues, though he does have severe COPD. I see him in the office for his COPD. Currently, he's on saline at 20 mL an hour, and nasal O2 at 3 L. For his right lower extremity cellulitis, and foot infection, he is getting Ancef and vancomycin. The patient was seen in the emergency department, in room 21. As mentioned, the patient is on 3 L nasal cannula and saline at 20 mL an hour. White count 9.97, hemoglobin 12.6, hematocrit 37.9, platelet count 270,000. Sodium, potassium, chloride, CO2, anion gap, BUN, and creatinine are all normal. Initial lactic acid was 2.7, and repeat was 1.6. Chest x-rays consistent with underlying COPD, but no acute processes is noted. The patient is seen today 02/14/2021 in follow-up on the regular medical floor. He is currently sitting up in a chair at the bedside. Awake and alert in no acute distress. He is maintaining O2 saturations in the 90s on 3 L/m per nasal cannula. She's been afebrile. Hemodynamically stable. Sodium 135. Potassium 5.1. Creatinine 0.69. Glucose 252. He remains on DuoNeb inhalations, Pulmicort and Perforomist inhalations, IV Solu-Medrol. 0.9 normal saline @ 75 ML's per hour. Wound cultures from the right foot are pending. Vancomycin discontinued, initiated on on cefazolin per ID services. Anticoagulated with Eliquis. The patient is seen today 02/15/2021 in follow-up on the regular medical floor. He is currently sitting up in a chair at the bedside. Awake and alert in no acute distress. He is maintaining good O2 saturation in the 90s on 3 L/m per nasal cannula. He does have a loose nonproductive cough. Still dyspneic on exertion. Some wheezing. Right foot wound culture is showing presumptive staph aureus. 137. Potassium 5.1. Creatinine 1.21. Glucose 298. He remains on DuoNeb inhalations, Pulmicort and Perforomist inhalations, IV Solu-Medrol. Antibiotics in the form of cefazolin. Anticoagulated with Eliquis. The patient is seen today 02/16/2021 in follow-up on the regular medical floor. He is currently sitting up in a chair at the bedside. Awake and alert in no acute distress. He is maintaining O2 saturations in the mid 90s on 3 L/m per nasal cannula. Chest x-ray reveals mild cardiomegaly and chronic parenchymal changes with mild interstitial edema and tiny bilateral pleural effusions suggesting CHF exacerbation. There is also additional left midlung opacities raising concern for possible COVID-19 infection per radiologist. He tested negative on 02/12/2021. Right foot wound culture was positive for MSSA and group D enterococcus. He remains on cefazolin. He is continued on bronchodilators, IV Solu-Medrol. He is a bit antsy as he has not smoked since admission. The patient is seen today 02/17/2021 in follow-up on the regular medical floor. He is awake and alert in no acute distress. Sitting up in a chair at the bedside. He denies any worsening shortness of breath, cough or congestion. Maintaining O2 saturations in the 90s on 3 L/m per nasal cannula. He's afebrile. right lower extremity wound culture was positive for MSSA and enterococcus faecalis. Sodium 136. Potassium 5.3. BUN 26. Creatinine 0.9. Glucose 262. He remains on cefazolin. Anticoagulated with Eliquis. Continued on bronchodilators, IV Solu-Medrol. NicoDerm patches in place. Objective - Vital Signs Vital signs: Vital Signs Temp 98.5 F 02/17/21 14:34 Pulse 92 02/17/21 15:59 Resp 16 02/17/21 14:34 BP 146/77 02/17/21 14:34 Pulse Ox 94 L 02/17/21 14:34 Intake & Output 02/16/21 02/17/21 02/17/21 18:59 06:59 18:59 Intake Total 118 240 Output Total 1002 600 Balance 118 1002 -360 Weight 102.7 kg Intake: Oral 118 240 Output: Urine 1002 600 Other: Voiding Method Toilet Toilet Toilet # Voids 1 750 1 - Exam GENERAL EXAM: Alert, very pleasant 80-year-old gentleman, on 3 L nasal cannula comfortable in no apparent distress. HEAD: Normocephalic. EYES: Normal reaction of pupils, equal size. NOSE: Clear with pink turbinates. THROAT: No erythema or exudates. NECK: No masses, no JVD. CHEST: No chest wall deformity. LUNGS: Equal air entry with bilateral end expiratory wheeze. CVS: S1 and S2 normal with no audible murmur, regular rhythm. ABDOMEN: No hepatosplenomegaly, normal bowel sounds, no guarding or rigidity. SPINE: No scoliosis or deformity SKIN: Dressing to the right foot dry and intact CENTRAL NERVOUS SYSTEM: No focal deficits, tone is normal in all 4 extremities. EXTREMITIES: There is 1 plus peripheral edema. No clubbing, no cyanosis. Peripheral pulses are intact. - Labs CBC & Chem 7: 02/13/21 03:42 02/17/21 05:46 Labs: Abnormal Lab Results - Last 24 Hours (Table) 02/16/21 02/16/21 02/17/21 Range/Units 17:24 20:36 05:46 Carbon Dioxide 28.6 H (20.0-27.5) mmol/L Anion Gap 9.80 L (10.00-18.00) mmol/L BUN/Creatinine Ratio 30.75 H (12.00-20.00) Ratio Glucose 262 H (70-110) mg/dL POC Glucose (mg/dL) 394 H 422 H (75-99) mg/dL Magnesium 2.6 H (1.5-2.4) mg/dL 02/17/21 02/17/21 Range/Units 07:36 12:43 Carbon Dioxide (20.0-27.5) mmol/L Anion Gap (10.00-18.00) mmol/L BUN/Creatinine Ratio (12.00-20.00) Ratio Glucose (70-110) mg/dL POC Glucose (mg/dL) 267 H 345 H (75-99) mg/dL Magnesium (1.5-2.4) mg/dL Microbiology - Last 24 Hours (Table) 02/13/21 12:30 Gram Stain - Final Foot - Right Wound Culture - Final Staphylococcus aureus Enterococcus faecalis 11/24/21 12:30 Anaerobic Culture - Final Foot - Right Assessment and Plan Assessment: 1 Acute exacerbation of COPD. Murray virus by PCR negative. 2 Bilateral lower extremity edema, with cellulitis. Culture of the right foot wound positive for MSSA and enterococcus faecalis, currently on cefazolin 3 History of chronic atrial fibrillation. 4 History of CHF. 5 History of diabetes mellitus. 6 History of hyperlipidemia. 7 History of hypertension. 8 History of myocardial infarction, status post coronary artery stenting. 9 Peripheral vascular occlusive disease. 10 Ongoing tobacco use with nicotine addiction. Plan: The patient was seen and evaluated by Dr. Marvel Shah from the pulmonary standpoint Continue IV Solu-Medrol, bronchodilators Antibiotics per ID services We will continue to follow I, the cosigning physician, performed a history & physical examination of the patient. Lungs sounds bilateral end expiratory wheeze. Maintaining good O2 saturations in the 90s on 3 L/m per nasal cannula. I discussed the assessment and plan of care with my nurse practitioner, Crissy Moreau. I attest to the above note as dictated by her.
[2021-02-17 17:24] LABS: Glucose,Whole Blood 326 mg/dL (75-99)
[2021-02-17 19:54] LABS: Glucose,Whole Blood 408 mg/dL (75-99)
[2021-02-17] MEDS: CLOPIDOGREL 75 MG TAB PO SCH (20:48)
[2021-02-17] MEDS: INSULIN DETEMIR (LEVEMIR) 100 UNIT/ML SYR SQ SCH (20:48)
[2021-02-17] MEDS: DULoxetine HCL 60 MG CAPSULE.DR PO SCH (20:48)
--- NOTE | 2021-02-17 22:10 | P.PN ---
Subjective This is a pleasant 80 years old male with past medical history of Atrial Fibrillation on Eliquis, Heart Failure, COPD, Diabetes Mellitus, Hyperlipidemia, Hypertension, peripheral neuropathy, peripheral vascular disease with previous stenting of the left lower extremity and previous vascular surgery in the right leg, frequent falls, chronic hypoxic respiratory failure maintained on oxygen at 3 L/m nasal cannula, restless leg syndrome, chronic back pain, He presents with bilateral feel redness, swelling pain and some purulent discharge for about 4 days, mainly on the right foot. He does not feel pain in the Vitals stable. Elevated lactic acid came back to normal. Has mild leukocytosis of 11.4. BMP and liver enzymes are unremarkable. ProBNP is 1860. Coronavirus not detected. Chest x-ray: No acute process. On admission he was started on IV vancomycin and received 1 dose of cefazolin 02/14/2021 Patient still with bilateral feet cellulitis and terminates on antibiotics with IV vancomycin and cefazolin. Wound cultures are pending.. Patient remains on IV vancomycin and cefazolin pending final results of wound culture. Patient denies dyspnea or chest pain or coughing while at rest. Hemodynamically stable. Glucose elevated more than 300 while he started on steroids. We will start Levemir 10 units at bedtime while he is on steroids. Continue with gentle hydration while he has infection and on IV vancomycin. He is also on Eliquis which is home medication. 02/15/2021 Patient generally doing well, his breathing improving gradually and slowly, however IV Solu-Medrol and switched to tapered prednisone upon discharge. No other new complaints. Blood pressure was elevated 182/94 most likely secondary to steroid effect. And normal saline. Stop normal saline. At hydralazine as needed He remains on antibiotic cefazolin. Wound culture growing presumptive staph but final result is pending 02/16/2021 patient is alert and oriented, dyspnea is improving. No dyspnea while at rest. He still been treated for bilateral feet cellulitis. Culture is growing MSSA and group D enterococcus. Patient is currently covered with cefazolin. Normal saline and IV vancomycin were discontinued. Also patient continue on Solu-Medrol 40 mg. Daily chest x-ray showing possible CHF or Covid. Covid test is ordered and is pending. Patient also on home dose of Eliquis Glucose is elevated and Levemir increased 10 up to 20 units while he is in the hospital and on steroids. Continue with ISS 02/17/2021 Patient with improving cellulitis of the feet and improving breathing for his COPD as well as on steroids. Physical causes uncontrolled and his Levemir at bedtime increased 20 minutes up to 28 units. Continue with insulin sliding scale. Also he is on cefazolin based on the wound culture for MSSA and group D enterococcus. Infectious disease team. With plan to switch to oral complex upon discharge Possible discharge in 24-48 hours Objective - Vital Signs Vital signs: Vital Signs Temp 97.5 F L 02/17/21 07:00 Pulse 98 02/17/21 12:59 Resp 16 02/17/21 07:00 BP 163/90 02/17/21 07:00 Pulse Ox 95 02/17/21 07:00 Intake & Output 02/16/21 02/17/21 02/17/21 18:59 06:59 18:59 Intake Total 118 240 Output Total 1002 Balance 118 -1002 240 Weight 102.7 kg Intake: Oral 118 240 Output: Urine 1002 Other: Voiding Method Toilet Toilet Toilet # Voids 1 750 - Exam GENERAL: The patient is alert and oriented x3, not in any acute distress. Well developed, well nourished. HEENT: Pupils are round and equally reacting to light. EOMI. No scleral icterus. No conjunctival pallor. Normocephalic, atraumatic. No pharyngeal erythema. No thyromegaly. CARDIOVASCULAR: S1 and S2 present. No murmurs, rubs, or gallops. PULMONARY: Chest is clear to auscultation, no wheezing or crackles. ABDOMEN: Soft, nontender, nondistended, normoactive bowel sounds. No palpable organomegaly. MUSCULOSKELETAL: No joint swelling or deformity. -EXTREMITIES: No cyanosis, clubbing, or pedal edema. Foot cellulitis. Both feet are red inflamed and with purulent discharge, more on the right side NEUROLOGICAL: Gross neurological examination did not reveal any focal deficits. SKIN: No rashes. No petechiae - Labs CBC & Chem 7: 02/13/21 03:42 02/17/21 05:46 Labs: Abnormal Lab Results - Last 24 Hours (Table) 02/16/21 02/16/21 02/17/21 Range/Units 17:24 20:36 05:46 Carbon Dioxide 28.6 H (20.0-27.5) mmol/L Anion Gap 9.80 L (10.00-18.00) mmol/L BUN/Creatinine Ratio 30.75 H (12.00-20.00) Ratio Glucose 262 H (70-110) mg/dL POC Glucose (mg/dL) 394 H 422 H (75-99) mg/dL Magnesium 2.6 H (1.5-2.4) mg/dL 02/17/21 02/17/21 Range/Units 07:36 12:43 Carbon Dioxide (20.0-27.5) mmol/L Anion Gap (10.00-18.00) mmol/L BUN/Creatinine Ratio (12.00-20.00) Ratio Glucose (70-110) mg/dL POC Glucose (mg/dL) 267 H 345 H (75-99) mg/dL Magnesium (1.5-2.4) mg/dL Microbiology - Last 24 Hours (Table) 02/13/21 12:30 Anaerobic Culture - Final Foot - Right 02/13/21 12:30 Gram Stain - Preliminary Foot - Right Wound Culture - Preliminary Staphylococcus aureus Group D Enterococcus Assessment and Plan Assessment: Acute right more than left foot cellulitis, secondary to staff Paroxysmal atrial fibrillation on Eliquis Chronic heart failure, no acute exacerbation COPD, not in acute exacerbation Lantus Hypertension Hyperlipidemia Diabetic neuropathy History of Peripheral vascular disease status post stenting History of Frequent falls Plan: This is a pleasant 80 years old male who presents with right foot cellulitis Continue with antibiotic per ID team recommendation, currently is on cefazolin. Discontinue IV fluids Covid Test pending When necessary hydralazine and monitor blood pressure Labs and medication were reviewed.. Continue same treatment. Continue with symptomatic treatment. Resume home medication. Monitor lytes and vitals. DVT and GI prophylaxis. Further recommendations depends on the clinical course of the patient DVT prophylaxis: Eliquis GI Prophylaxis: Pepcid PT/OT: Pending
[2021-02-17] MEDS ORDERED: INSULIN DETEMIR (LEVEMIR) 100 UNIT/ML SYR SQ ONE (22:30)
--- NOTE | 2021-02-18 00:04 | PN ---
PROGRESS NOTE DATE OF SERVICE: 02/17/2021 REASON FOR FOLLOWUP: Right foot cellulitis and athlete's foot. INTERVAL HISTORY: The patient is afebrile. The patient is breathing comfortably. The patient is feeling better, wants to go home. No chest pain, shortness of breath or cough. No abdominal pain or pain to the right foot area. PHYSICAL EXAMINATION: Blood pressure 161/83 with a pulse of 90, temperature 97.7. He is 95% on 3 L nasal cannula. General description is an elderly male up in the chair in no distress. Respiratory system: Unlabored breathing, clear to auscultation anteriorly. Heart S1, S2. Regular rate and rhythm. Abdomen soft, no tenderness. Right foot is currently dressed. No obvious drainage on the dressing. LABS: Creatinine 0.9. DIAGNOSTIC IMPRESSION AND PLAN: Patient with right foot cellulitis with athlete's foot. Culture positive for MSSA Enterococcus. Patient is covered cefazolin. Transition to oral Keflex and nystatin powder, planning for at least a week of antibiotic therapy on discharge. Continue supportive care. MMODL / IJN: [id number] /
[2021-02-18] MEDS: methylPREDNISolone SOD SUCCI 40 MG/ML 1 ML VIAL IV SCH (00:57)
[2021-02-18] MEDS: DILTIAZEM ORAL 30 MG TAB PO SCH ×2 (05:10→14:49)
[2021-02-18 07:25] LABS: Glucose,Whole Blood 277 mg/dL (75-99)
[2021-02-18 08:36] VITALS: RESP 18
[2021-02-18] MEDS: atenoloL 25 MG TAB PO SCH (08:39)
[2021-02-18] MEDS: ATORVASTATIN 40 MG TAB PO SCH (08:39)
[2021-02-18] MEDS: APIXABAN 5 MG TAB PO SCH (08:39)
[2021-02-18] MEDS: GABAPENTIN 400 MG CAP PO SCH ×2 (08:40→18:25)
[2021-02-18] MEDS: FAMOTIDINE 20 MG TAB PO SCH (08:40)
[2021-02-18] MEDS: busPIRone HCl 5 MG TAB PO SCH (08:40)
[2021-02-18] MEDS: FENOFIBRATE 160 MG TAB PO SCH (08:40)
[2021-02-18] MEDS: MORPHINE SULFATE ER 30 MG TABLET PO SCH (08:40)
[2021-02-18] MEDS: NICOTINE 14MG/24HR PATCH TRANSDERM SCH (08:43)
[2021-02-18] MEDS: NYSTATIN 100,000 UNIT/GM POWD 15 GM TOPICAL SCH (08:43)
[2021-02-18] MEDS: INSULIN ASPART (NovoLOG) 100 UNIT/ML VIAL SQ SCH ×3 (08:47→16:27)
[2021-02-18] MEDS: BUDESONIDE 1 MG/2 ML NEBU INHALATION SCH (08:56)
[2021-02-18] MEDS: IPRATROPIUM-ALBUTEROL 3 ML NEB INHALATION SCH ×3 (08:56→16:46)
[2021-02-18] MEDS: FORMOTEROL FUMARATE 20 MCG/2 ML NEBU INHALATION SCH (08:56)
[2021-02-18] MEDS ORDERED: predniSONE 20 MG TAB PO SCH (09:00)
[2021-02-18] MEDS ORDERED: FUROSEMIDE 20 MG TAB PO STA (09:23)
[2021-02-18] MEDS ORDERED: ISOSORBIDE MONONITRATE ER 30 MG TAB.ER.24H PO STA (09:35)
[2021-02-18 10:19] VITALS: BMI 30.6
[2021-02-18 11:36] LABS: Glucose,Whole Blood 426 mg/dL (75-99)
[2021-02-18 15:34] VITALS: BP 150/80; TEMP 97.5
[2021-02-18 16:20] LABS: Glucose,Whole Blood 301 mg/dL (75-99)
--- NOTE | 2021-02-18 16:20 | P.PN ---
Subjective Progress Note Date: 02/18/21 02/18/2021, the patient is feeling well. No cervical shortness of breath and his overall restlessness inspect his baseline. Note that he has also an MSSA similar disease in the lower extremity and the patient is currently on IV cefazolin and this will be switched to oral At a Time of Discharge. Meanwhile, the Patient Is Currently on Oxygen and He Is at 2 L with a Pulse Ox of 95%. He Is Hemodynamically Stable and the Patient Is Afebrile. He Is Fully Vaccinated for COVID 19 and He Has Also Taken His Booster Shot. Blood Sugar Is Elevated and This Is Probably Related to Steroid Use. The Patient Is Currently on Prednisone Burst Taper Starting with 40 Mg. The Patient Is Also on Levemir Insulin 28 Units at Bedtime along with a Sliding Scale Coverage. He Is Smoking and Is Currently on Nicotine Patch. Objective - Vital Signs Vital signs: Vital Signs Temp 97.5 F L 02/18/21 15:00 Pulse 80 02/18/21 15:00 Resp 18 02/18/21 15:00 BP 150/80 02/18/21 15:00 Pulse Ox 95 02/18/21 15:00 Intake & Output 02/17/21 02/18/21 02/18/21 18:59 06:59 18:59 Intake Total 240 430 Output Total 600 350 Balance -360 -350 430 Weight 102.5 kg 102.5 kg Intake: Oral 240 430 Output: Urine 600 350 Other: Voiding Method Toilet Toilet Toilet # Voids 1 1 - Exam GENERAL EXAM: Alert, very pleasant 80-year-old gentleman, on 3 L nasal cannula comfortable in no apparent distress. HEAD: Normocephalic. EYES: Normal reaction of pupils, equal size. NOSE: Clear with pink turbinates. THROAT: No erythema or exudates. NECK: No masses, no JVD. CHEST: No chest wall deformity. LUNGS: Equal air entry with bilateral end expiratory wheeze. CVS: S1 and S2 normal with no audible murmur, regular rhythm. ABDOMEN: No hepatosplenomegaly, normal bowel sounds, no guarding or rigidity. SPINE: No scoliosis or deformity SKIN: Dressing to the right foot dry and intact CENTRAL NERVOUS SYSTEM: No focal deficits, tone is normal in all 4 extremities. EXTREMITIES: There is 1 plus peripheral edema. No clubbing, no cyanosis. Peripheral pulses are intact. - Labs CBC & Chem 7: 02/13/21 03:42 02/17/21 05:46 Labs: Abnormal Lab Results - Last 24 Hours (Table) 02/17/21 02/17/21 02/18/21 Range/Units 17:22 19:52 07:24 POC Glucose (mg/dL) 326 H 408 H 277 H (75-99) mg/dL 02/18/21 Range/Units 11:35 POC Glucose (mg/dL) 426 H (75-99) mg/dL Microbiology - Last 24 Hours (Table) 02/13/21 12:30 Gram Stain - Final Foot - Right Wound Culture - Final Staphylococcus aureus Enterococcus faecalis Assessment and Plan Plan: 1 Acute exacerbation of COPD. Murray virus by PCR negative. The patient is clinically improving. The patient has developed a steroid use hyperglycemia. Otherwise, his condition is stable and the patient seems to be quite comfortable and ready to be discharged home. 2 Bilateral lower extremity edema, with cellulitis. Culture of the right foot wound positive for MSSA and enterococcus faecalis, currently on cefazolin 3 History of chronic atrial fibrillation. 4 History of CHF. 5 History of diabetes mellitus. 6 History of hyperlipidemia. 7 History of hypertension. 8 History of myocardial infarction, status post coronary artery stenting. 9 Peripheral vascular occlusive disease. 10 Ongoing tobacco use with nicotine addiction. Plan: Monitor the blood sugar and the patient was covered with additional 8 units and the patient will need long-acting insulin with Levemir Recent mammogram put the patient prednisone burst taper Switched antibiotics Antibiotics oral Kefzol Stable from the pulmonary standpoint, patient can be discharged home as long as his blood sugars are under adequate control today follow-up in our office
[2021-02-18 16:57] VITALS: PULSE 80
[2021-02-18 17:24] LABS: Glucose,Whole Blood 297 mg/dL (75-99)
[2021-02-18] MEDS ORDERED: INSULIN DETEMIR (LEVEMIR) 100 UNIT/ML SYR SQ SCH (21:00)
--- NOTE | 2021-02-18 21:20 | P.PN ---
Progress Note - Text Progress Note Date: 02/18/21 REASON FOR FOLLOWUP: Right foot cellulitis and athlete's foot. INTERVAL HISTORY: The patient is currentlyafebrile. The patient is breathing comfortably. The patient wants to go home. No chest pain, shortness of breath or cough. No abdominal pain or pain to the right foot area. PHYSICAL EXAMINATION: Blood pressure 160/80 with a pulse of 90, temperature 97.7. He is 95% on 3 L nasal cannula. General description is an elderly male up in the chair in no distress. Respiratory system: Unlabored breathing, clear to auscultation anteriorly. Heart S1, S2. Regular rate and rhythm. Abdomen soft, no tenderness. Right foot is currently dressed. No obvious drainage on the dressing. LABS: reviewed DIAGNOSTIC IMPRESSION AND PLAN: Patient with right foot cellulitis with athlete's foot. Culture positive for MSSA Enterococcus. Patient improved with cefazolin to finish therapy with oral Keflex and nystatin powder x 7 days on discharge
== END 2021-02-18 19:17 | disposition home or self-care (01) ==
LOC: EC 14:10 → 6NMEDSUR 20:20
PROVIDERS: ADMIT Hospitalist; ATTEND Hospitalist
DX: L03.115 Cellulitis of right lower limb (principal); J44.1 Chronic obstructive pulmonary disease with (acute) exacerbation; L03.116 Cellulitis of left lower limb; I48.20 Chronic atrial fibrillation, unspecified; E11.65 Type 2 diabetes mellitus with hyperglycemia; T38.0X5A Adverse effect of glucocorticoids and synthetic analogues, initial encounter; E11.51 Type 2 diabetes mellitus with diabetic peripheral angiopathy without gangrene; E11.42 Type 2 diabetes mellitus with diabetic polyneuropathy; B35.3 Tinea pedis; J96.11 Chronic respiratory failure with hypoxia; I11.0 Hypertensive heart disease with heart failure; I50.9 Heart failure, unspecified; A49.01 Methicillin susceptible Staphylococcus aureus infection, unspecified site; B95.2 Enterococcus as the cause of diseases classified elsewhere; S90.821A Blister (nonthermal), right foot, initial encounter; L89.312 Pressure ulcer of right buttock, stage 2; I25.2 Old myocardial infarction; E78.5 Hyperlipidemia, unspecified; G25.81 Restless legs syndrome; I25.10 Atherosclerotic heart disease of native coronary artery without angina pectoris; G89.29 Other chronic pain; M54.9 Dorsalgia, unspecified; R29.6 Repeated falls; F32.A Depression, unspecified; F41.9 Anxiety disorder, unspecified; R79.89 Other specified abnormal findings of blood chemistry; H26.9 Unspecified cataract; F17.200 Nicotine dependence, unspecified, uncomplicated; Z99.81 Dependence on supplemental oxygen; Z20.822 Contact with and (suspected) exposure to COVID-19; Z79.01 Long term (current) use of anticoagulants; Z79.51 Long term (current) use of inhaled steroids; Z79.02 Long term (current) use of antithrombotics/antiplatelets; Z79.84 Long term (current) use of oral hypoglycemic drugs; Z79.891 Long term (current) use of opiate analgesic; Z79.899 Other long term (current) drug therapy; Z88.0 Allergy status to penicillin; Z95.5 Presence of coronary angioplasty implant and graft; Z96.642 Presence of left artificial hip joint; Z96.611 Presence of right artificial shoulder joint; Z90.49 Acquired absence of other specified parts of digestive tract; Z87.19 Personal history of other diseases of the digestive system; Z90.79 Acquired absence of other genital organ(s); Z95.820 Peripheral vascular angioplasty status with implants and grafts; Z98.890 Other specified postprocedural states; Z82.49 Family history of ischemic heart disease and other diseases of the circulatory system; Z81.2 Family history of tobacco abuse and dependence
CPT/HCPCS: 96376 ×6; 96361 ×4; 96366 ×8; 96375; 96365; 96367; 99284; 36415; 94640 ×12; 94760; 83880; 80053; 80048 ×4; 83605 ×2; 83735; 85025 ×2; 87070; 87205; 87075; 87077; 87186; 87635; 71045; 71046; G0378 ×7; U0003; U0005; S4990 ×3; J3370 ×3; J2920 ×6; J0690 ×6; J7512

== ENCOUNTER 2021-07-30 16:30 | Emergency (ER) | payer MEDICARE ==
[2021-07-30 17:13] VITALS: RESP 20
--- NOTE | 2021-07-30 20:31 | ED ---
Recheck HPI - General Chief Complaint: Recheck/Abnormal Lab/Rx Stated Complaint: Covid+,JULIANNE Time Seen by Provider: 07/30/21 20:20 Source: patient, family, RN notes reviewed Mode of arrival: wheelchair Limitations: no limitations - History of Present Illness Initial Comments: Patient tested positive for COVID-19 today at his primary care physician's office. Patient sent here for the monoclonal antibody. Patient denying any shortness of breath or chest pain.Patient has had a mild increased cough from his baseline. Patient does have a history of COPD and is oxygen dependent. Patient really has no complaints at this time. States he feels at his baseline. States he feels "fine. "Patient's spouse also had COVID-19 recently. No headache, no fever or chills, no changes in vision or hearing, no sore throat or difficulty with speech, no neck pain, no chest pain or shortness of breath, no abdominal pain, no nausea or vomiting, no changes in urination or bowel movements, no numbness or tingling, no extremity pain, no skin rashes or lesions. History of multiple comorbidities to include congestive heart failure and COPD as listed in the past medical history. - Related Data Home Medications Medication Instructions Recorded Confirmed Albuterol Nebulized [Ventolin 2.5 mg INHALATION RT-QID 07/27/17 02/12/21 Nebulized] Apixaban [Eliquis] 5 mg PO BID 07/27/17 02/12/21 DULoxetine HCL [Cymbalta] 60 mg PO HS 07/27/17 02/12/21 Fenofibrate Nanocrystallized 145 mg PO DAILY 07/27/17 02/12/21 [Tricor] Fluticasone/Vilanterol [Breo 1 puff INHALATION RT-DAILY 07/27/17 02/12/21 Ellipta 200-25 Mcg Inhaler] Furosemide [Lasix] 20 mg PO Q48H 07/27/17 02/12/21 Isosorbide Mononitrate ER [Imdur] 30 mg PO DAILY 07/27/17 02/12/21 Tiotropium [place] [Spiriva] 1 puff INHALATION RT-DAILY 07/27/17 02/12/21 atenoloL [Tenormin] 25 mg PO DAILY 07/27/17 02/12/21 dilTIAZem HCL [Diltiazem HCl] 15 mg PO Q8H 07/27/17 02/12/21 lisinopriL [Zestril] 2.5 mg PO DAILY 07/27/17 02/12/21 metFORMIN HCL [Glucophage] 1,000 mg PO BID 07/27/17 02/12/21 rOPINIRole HCL [Requip] 0.25 mg PO HS 07/27/17 02/12/21 busPIRone HCl [Buspar] 5 mg PO BID 03/18/19 02/12/21 sitaGLIPtin [Januvia] 100 mg PO DAILY 03/18/19 02/12/21 Albuterol Sulfate [Albuterol 1 - 2 puff INHALATION RT-Q4H PRN 02/12/21 02/12/21 Sulfate Hfa] Atorvastatin [Lipitor] 40 mg PO DAILY 02/12/21 02/12/21 Clopidogrel [Plavix] 75 mg PO HS 02/12/21 02/12/21 Gabapentin [Neurontin] 400 mg PO BID@0900,1700 02/12/21 02/12/21 Morphine Sulfate ER [Ms Contin] 30 mg PO BID 02/12/21 02/12/21 Multivit-Min/FA/Lycopen/Lutein 1 tab PO DAILY 02/12/21 02/12/21 [Centrum Silver Men Tablet] Vitamin C 125mg Gummy 125 mg PO DAILY 02/12/21 02/12/21 Previous Rx's Medication Instructions Recorded Cephalexin [Keflex] 500 mg PO Q8HR 7 Days #21 cap 02/18/21 Famotidine [Pepcid] 20 mg PO BID #30 tab 02/18/21 INSULIN ASPART (NovoLOG) [NovoLOG 0 unit SQ ACHS #10 ml 02/18/21 (formulary)] Nystatin 100,000 Unit/gm Powd 1 applic TOPICAL DAILY 7 Days #1 02/18/21 [Mycostatin Powder] each predniSONE 10 mg PO DIRECTED #30 tab 02/18/21 Allergies Allergy/AdvReac Type Severity Reaction Status Date / Time Penicillins Allergy Rash/Hives Verified 07/30/21 17:13 Review of Systems ROS Statement: Those systems with pertinent positive or pertinent negative responses have been documented in the HPI. ROS Other: All systems not noted in ROS Statement are negative. Past Medical History Past Medical History: Atrial Fibrillation, Heart Failure, COPD, Diabetes Mellitus, Hyperlipidemia, Hypertension, Myocardial Infarction ([place]), Vascular Disorder Additional Past Medical History / Comment(s): COPD severe in nature, coronary artery disease with previous coronary stenting and previous myocardial infarction, [id number] diabetes mellitus type 2, peripheral neuropathy, peripheral vascular disease with previous stenting of the left lower extremity and previous vascular surgery in the right leg, frequent falls, previous history of sores in the lower extremity in the heels, chronic hypoxic respiratory failure maintained on oxygen at 3 L/m nasal cannula, restless leg syndrome, chronic back pain, abdominal wall hernia, bilateral cataracts, hyperlipidemia, hypertension, diabetes mellitus Last Myocardial Infarction Date:: unkn History of Any Multi-Drug Resistant Organisms: None Reported Past Surgical History: Hernia Repair, Joint Replacement, Orthopedic Surgery Additional Past Surgical History / Comment(s): Cardiac catheterization with coronary stenting, back surgery, appendectomy, hernia repair, left total hip replacement, right shoulder replacement, right rotator cuff repair, TURP, left lower extremity angioplasty and stenting for peripheral vascular disease, previous colonoscopies Past Anesthesia/Blood Transfusion Reactions: No Reported Reaction Past Psychological History: Anxiety, Depression Smoking Status: Current every day smoker Past Alcohol Use History: None Reported Past Drug Use History: None Reported - Past Family History Father Family Medical History: Myocardial Infarction (MD) Additional Family Medical History / Comment(s): Father of a MD at the age of 62 yrs. Mother Additional Family Medical History / Comment(s): Mother was a heavy smoker. General Exam Limitations: no limitations General appearance: alert, in no apparent distress Head exam: Present: atraumatic, normocephalic, normal inspection Eye exam: Present: normal appearance, PERRL, EOMI. Absent: scleral icterus, conjunctival injection, periorbital swelling ENT exam: Present: normal exam, normal oropharynx, mucous membranes moist, normal external ear exam. Absent: mucous membranes dry Neck exam: Present: normal inspection, full ROM. Absent: tenderness, meningismus, lymphadenopathy Respiratory exam: Present: normal lung sounds bilaterally. Absent: respiratory distress, wheezes, rales, rhonchi, stridor, chest wall tenderness, accessory muscle use Cardiovascular Exam: Present: regular rate, normal rhythm, normal heart sounds. Absent: systolic murmur, diastolic murmur, rubs, gallop, clicks GI/Abdominal exam: Present: soft, normal bowel sounds. Absent: distended, tenderness, guarding, rebound, rigid Extremities exam: Present: normal inspection, full ROM, normal capillary refill. Absent: tenderness, pedal edema, joint swelling, calf tenderness Back exam: Present: normal inspection Neurological exam: Present: alert, oriented X3, CN II-XII intact Psychiatric exam: Present: normal affect, normal mood Skin exam: Present: warm, dry, intact, normal color. Absent: rash Course Vital Signs 07/30/21 17:11 Temperature 98.4 F Pulse Rate 80 Respiratory 20 Rate Blood Pressure 119/90 O2 Sat by Pulse 94 L Oximetry Medical Decision Making - Medical Decision Making Patient in no distress. Consented for monoclonal antibody infusion. Patient was told to return to the ER for any signs or symptoms worsen. Told to return immediately if any other problems arise. All questions answered. Treatment plan discussed. Patient in agreement Every effort has been made to ensure accuracy of this dictation. However, due to the limitations of electronic medical records and dictation devices, errors in charting still occur. Supervising physicians Dr. Villalobos Oxygen dependent male presenting for monoclonal antibody. States he feels bad about at baseline. Requesting antibody and discharge. Disposition Clinical Impression: COVID-19 Disposition: HOME SELF-CARE Condition: Good Instructions (If sedation given, give patient instructions): COVID-19 (Coronavirus Disease 2019) (ED) Additional Instructions: SELF QUARANTINE DISCHARGE: As you are at risk for symptoms due to coronavirus, please stay home and stay away from others as much as possible. Please maintain social distance of 6 feet if possible. You should not return to work until at least 3 days (72 hours) have passed since recovery of symptoms. This defined as resolution of fever without the use of fever reducing medicines and improvement in respiratory symptoms (e.g,, cough, shortness of breath) Isolation can end at least 5 days after symptom onset and after fever ends for 24 hours (without the use of fever-reducing medication) and symptoms are improving, if these people can continue to properly wear a well-fitted mask around others for 5 more days after the 5-day isolation period. If you're still having symptoms at the end of 5 day period, isolate for an additional 5 days. More information about what to do if you are sick can be found on the CDC website at https://www.cdc.gov/coronavirus/2019-ncov/sm-qmo-wes-sick/jxzzj-csae-mjmu.html Expect the symptoms to last for 7-14 days from onset. Use acetaminophen (Tylenol) as needed for discomfort. You can take a maximum of 1 gram every 6 hours for discomfort, with your total dose in 24 hours not exceeding 4 grams. Be sure to maintain hydration. Drink continuous water and/or items high in vitamin C, such as orange juice and/or lemonade. Unless you have high blood pressure, you may consider Sudafed (which is [id number]) for nasal congestion. I would suggest that a short acting Sudafed rather than the 24 hour Sudafed. For a cough you may take Mucinex or Robitussin. Also consider the use of Vicks Vapor Rub or your chest when you sleep. Use a humidifier that is cleaned frequently, in the bedroom at night. For Nausea /Vomiting/Diarrhea associated with your Illness: o Small frequent sips of room temperature liquids. o Diet: [place] Foods - If you are still experiencing discomfort and/or nausea please slowly advancing your diet using the BRAT Diet = bananas, rice, apples/apple sauce, toast. o With diarrhea avoid any dairy for 48 hours after symptoms resolved. o Continue with activity as tolerated. If your symptoms do get worse and you believe that the upper respiratory infection has developed into something else, such as pneumonia or severe dehydration, please return to the emergency department or follow-up with your primary care. But expect to be symptomatic for the days as indicated above Contact your band tumbler by phone in the morning for further guidance and treatment. Is patient prescribed a controlled substance at d/c from ED?: No Referrals: Shama Tsang MD [Primary Care Provider] - 1-2 days Adi Grier DO [Doctor of Osteopathic Medicine] - 1-2 days
[2021-07-30] MEDS ORDERED: BEBTELOVIMAB (EUA) 175 MG/2 ML VIAL IV ONE (20:45)
[2021-07-30 22:52] VITALS: BP 121/88; PULSE 67; TEMP 98.5
== END 2021-07-30 22:21 | disposition home or self-care (01) ==
LOC: EC 16:30
DX: U07.1 COVID-19 (principal); F17.200 Nicotine dependence, unspecified, uncomplicated; E11.51 Type 2 diabetes mellitus with diabetic peripheral angiopathy without gangrene; E78.5 Hyperlipidemia, unspecified; I11.0 Hypertensive heart disease with heart failure; I25.10 Atherosclerotic heart disease of native coronary artery without angina pectoris; I25.2 Old myocardial infarction; I48.91 Unspecified atrial fibrillation; I50.9 Heart failure, unspecified; J44.9 Chronic obstructive pulmonary disease, unspecified; Z79.01 Long term (current) use of anticoagulants; Z79.02 Long term (current) use of antithrombotics/antiplatelets; Z88.0 Allergy status to penicillin; Z95.5 Presence of coronary angioplasty implant and graft; Z99.81 Dependence on supplemental oxygen; Z79.84 Long term (current) use of oral hypoglycemic drugs; Z79.899 Other long term (current) drug therapy
CPT/HCPCS: 99282; Q0222

== ENCOUNTER 2021-12-20 11:42 | Inpatient (IN) | payer MEDICARE ==
[2021-12-20 13:24] LABS: Basophils # (A) 0.1 k/uL (0-0.2); Basophils % (A) 0 %; Eosinophils # (A) 0.2 k/uL (0-0.7); Eosinophils % (A) 2 %; HCT 39.3 % (39.0-53.0); HGB 12.7 gm/dL (13.0-17.5); Lymphocytes # (A) 1.3 k/uL (1.0-4.8); Lymphocytes % (A) 8 %; MCH 30.9 pg (25.0-35.0); MCHC 32.2 g/dL (31.0-37.0); Monocytes # (A) 0.7 k/uL (0-1.0); Monocytes % (A) 4 %; Neutrophils # (A) 13.9 k/uL (1.3-7.7); Neutrophils % (A) 84 %; Platelet Count 287 k/uL (150-450); RBC 4.09 m/uL (4.30-5.90); RDW 12.7 % (11.5-15.5); WBC 16.4 k/uL (3.8-10.6)
--- NOTE | 2021-12-20 13:27 | ED ---
General Adult HPI - General Chief complaint: Extremity Problem,Nontraumatic Stated complaint: knee swelling, possible infection Time Seen by Provider: 12/20/21 12:53 Source: patient, RN notes reviewed, old records reviewed Mode of arrival: wheelchair - History of Present Illness Initial comments: 81-year-old male presents for evaluation of right knee pain and swelling. Symptoms have progressed over the past several days. He had been evaluated by the wound center for chronic wound on the right lower extremity and was encouraged to present to the emergency department for evaluation of right knee pain and swelling. The knee is been erythematous with increased pain over the past 48 hours. No measured fever. - Related Data Home Medications Medication Instructions Recorded Confirmed Albuterol Nebulized [Ventolin 2.5 mg INHALATION RT-QID 07/27/17 02/12/21 Nebulized] Apixaban [Eliquis] 5 mg PO BID 07/27/17 02/12/21 DULoxetine HCL [Cymbalta] 60 mg PO HS 07/27/17 02/12/21 Fenofibrate Nanocrystallized 145 mg PO DAILY 07/27/17 02/12/21 [Tricor] Fluticasone/Vilanterol [Breo 1 puff INHALATION RT-DAILY 07/27/17 02/12/21 Ellipta 200-25 Mcg Inhaler] Furosemide [Lasix] 20 mg PO Q48H 07/27/17 02/12/21 Isosorbide Mononitrate ER [Imdur] 30 mg PO DAILY 07/27/17 02/12/21 Tiotropium [place] [Spiriva] 1 puff INHALATION RT-DAILY 07/27/17 02/12/21 atenoloL [Tenormin] 25 mg PO DAILY 07/27/17 02/12/21 dilTIAZem HCL [Diltiazem HCl] 15 mg PO Q8H 07/27/17 02/12/21 lisinopriL [Zestril] 2.5 mg PO DAILY 07/27/17 02/12/21 metFORMIN HCL [Glucophage] 1,000 mg PO BID 07/27/17 02/12/21 rOPINIRole HCL [Requip] 0.25 mg PO HS 07/27/17 02/12/21 busPIRone HCl [Buspar] 5 mg PO BID 03/18/19 02/12/21 sitaGLIPtin [Januvia] 100 mg PO DAILY 03/18/19 02/12/21 Albuterol Sulfate [Albuterol 1 - 2 puff INHALATION RT-Q4H PRN 02/12/21 02/12/21 Sulfate Hfa] Atorvastatin [Lipitor] 40 mg PO DAILY 02/12/21 02/12/21 Clopidogrel [Plavix] 75 mg PO HS 02/12/21 02/12/21 Gabapentin [Neurontin] 400 mg PO BID@0900,1700 02/12/21 02/12/21 Morphine Sulfate ER [Ms Contin] 30 mg PO BID 02/12/21 02/12/21 Multivit-Min/FA/Lycopen/Lutein 1 tab PO DAILY 02/12/21 02/12/21 [Centrum Silver Men Tablet] Vitamin C 125mg Gummy 125 mg PO DAILY 02/12/21 02/12/21 Previous Rx's Medication Instructions Recorded Cephalexin [Keflex] 500 mg PO Q8HR 7 Days #21 cap 02/18/21 Famotidine [Pepcid] 20 mg PO BID #30 tab 02/18/21 INSULIN ASPART (NovoLOG) [NovoLOG 0 unit SQ ACHS #10 ml 02/18/21 (formulary)] Nystatin 100,000 Unit/gm Powd 1 applic TOPICAL DAILY 7 Days #1 02/18/21 [Mycostatin Powder] each predniSONE 10 mg PO DIRECTED #30 tab 02/18/21 Allergies Allergy/AdvReac Type Severity Reaction Status Date / Time Penicillins Allergy Rash/Hives Verified 12/20/21 12:13 Review of Systems ROS Statement: Those systems with pertinent positive or pertinent negative responses have been documented in the HPI. ROS Other: All systems not noted in ROS Statement are negative. Past Medical History Past Medical History: Atrial Fibrillation, Heart Failure, COPD, Diabetes Mellitus, Hyperlipidemia, Hypertension, Myocardial Infarction ([place]), Vascular Disorder Additional Past Medical History / Comment(s): COPD severe in nature, coronary artery disease with previous coronary stenting and previous myocardial infarction, [id number] diabetes mellitus type 2, peripheral neuropathy, peripheral vascular disease with previous stenting of the left lower extremity and previous vascular surgery in the right leg, frequent falls, previous history of sores in the lower extremity in the heels, chronic hypoxic respiratory failure maintained on oxygen at 3 L/m nasal cannula, restless leg syndrome, chronic back pain, abdominal wall hernia, bilateral cataracts, hyperlipidemia, hypertension, diabetes mellitus, [place] Last Myocardial Infarction Date:: unkn History of Any Multi-Drug Resistant Organisms: None Reported Past Surgical History: Hernia Repair, Joint Replacement, Orthopedic Surgery Additional Past Surgical History / Comment(s): Cardiac catheterization with coronary stenting, back surgery, appendectomy, hernia repair, left total hip replacement, right shoulder replacement, right rotator cuff repair, TURP, left lower extremity angioplasty and stenting for peripheral vascular disease, previous colonoscopies Past Anesthesia/Blood Transfusion Reactions: No Reported Reaction Past Psychological History: Anxiety, Depression Smoking Status: Current every day smoker Past Alcohol Use History: None Reported Past Drug Use History: None Reported - Past Family History Father Family Medical History: Myocardial Infarction (CA) Additional Family Medical History / Comment(s): Father of a CA at the age of 62 yrs. Mother Additional Family Medical History / Comment(s): Mother was a heavy smoker. General Exam General appearance: alert, in no apparent distress Head exam: Present: atraumatic, normocephalic Eye exam: Present: normal appearance, PERRL Respiratory exam: Present: respiratory distress Cardiovascular Exam: Present: regular rate, normal rhythm GI/Abdominal exam: Present: soft. Absent: distended, tenderness Extremities exam: Present: tenderness, joint swelling (Erythema overlying the right knee, pain with range of motion tender to palpation). Absent: full ROM Neurological exam: Present: alert, oriented X3 Psychiatric exam: Present: normal affect, normal mood Course Vital Signs 12/20/21 12/20/21 12/20/21 12:09 12:23 14:26 Temperature 97.9 F 97.6 F 98 F Pulse Rate 86 68 83 Respiratory 18 20 18 Rate Blood Pressure 124/69 128/72 126/67 O2 Sat by Pulse 90 L 88 L 83 L Oximetry Medical Decision Making - Medical Decision Making 81-year-old male with swollen right knee. Patient afebrile. On exam the knee is swollen, there is no significant effusion. The skin is tender and warm to touch. There is pain with range of motion however I suspect that the infection is cutaneous rather than septic arthritis. Laboratory testing reveals leukocytosis and mildly elevated CRP. I discussed case with orthopedics who will see the patient in consultation, Tish. At this time there is a possibili ty of a septic arthritis but I do feel that this is more consistent with an overlying cellulitis and there is no good location to perform arthrocentesis giving the degree of cutaneous changes. Patient started on ceftriaxone and vancomycin will be admitted to Dr. Powers. - Lab Data Result diagrams: 12/20/21 13:03 12/20/21 13:03 Lab Results 12/20/21 12/20/21 12/20/21 Range/Units 13:03 13:03 13:03 WBC 16.4 H (3.8-10.6) k/uL RBC 4.09 L (4.30-5.90) m/uL Hgb 12.7 L (13.0-17.5) gm/dL Hct 39.3 (39.0-53.0) % MCV 96.0 (80.0-100.0) fL MCH 30.9 (25.0-35.0) pg MCHC 32.2 (31.0-37.0) g/dL RDW 12.7 (11.5-15.5) % Plt Count 287 (150-450) k/uL MPV 9.0 Neutrophils % 84 % Lymphocytes % 8 % Monocytes % 4 % Eosinophils % 2 % Basophils % 0 % Neutrophils # 13.9 H (1.3-7.7) k/uL Lymphocytes # 1.3 (1.0-4.8) k/uL Monocytes # 0.7 (0-1.0) k/uL Eosinophils # 0.2 (0-0.7) k/uL Basophils # 0.1 (0-0.2) k/uL Sodium 136 L (137-145) mmol/L Potassium 4.7 (3.5-5.1) mmol/L Chloride 97 L (98-107) mmol/L Carbon Dioxide 24 (22-30) mmol/L Anion Gap 15 mmol/L BUN 38 H (9-20) mg/dL Creatinine 1.35 H (0.66-1.25) mg/dL Est GFR (CKD-EPI)AfAm 56 (>60 ml/min/1.73 sqM) Est GFR (CKD-EPI)NonAf 49 (>60 ml/min/1.73 sqM) Glucose 153 H (74-99) mg/dL Plasma Lactic Acid Jatin 2.0 (0.7-2.0) mmol/L Calcium 9.3 (8.4-10.2) mg/dL Total Bilirubin 0.7 (0.2-1.3) mg/dL AST 21 (17-59) U/L ALT 14 (4-49) U/L Alkaline Phosphatase 54 (38-126) U/L C-Reactive Protein 4.5 H (<1.0) mg/dL Total Protein 7.4 (6.3-8.2) g/dL Albumin 4.5 (3.5-5.0) g/dL Disposition Clinical Impression: Cellulitis of right knee Disposition: ADMITTED IP TO THIS HOSP Condition: Stable Is patient prescribed a controlled substance at d/c from ED?: No Referrals: Shama Tsang MD [Primary Care Provider] - 1-2 days Time of Disposition: 14:42
[2021-12-20 13:37] LABS: Albumin 4.5 g/dL (3.5-5.0); C Reactive Protein 4.5 mg/dL (<1.0); Calcium 9.3 mg/dL (8.4-10.2); Potassium 4.7 mmol/L (3.5-5.1); Total Bilirubin 0.7 mg/dL (0.2-1.3); Total Protein 7.4 g/dL (6.3-8.2)
[2021-12-20] MEDS ORDERED: cefTRIAXone IN SWFI 1,000 MG/10 ML SYRINGE IVP STA (13:58)
[2021-12-20] MEDS ORDERED: VANCOMYCIN IV PER PHARMACY 1 EACH MISC MISCELLANE PRN (13:59)
[2021-12-20] MEDS ORDERED: VANCOMYCIN 1,750 MG in SODIUM CHLORIDE 0.9% 500 ML 500 ML IVPB ONE (14:30)
--- NOTE | 2021-12-20 14:35 | XR ---
EXAMINATION TYPE: XR knee complete RT DATE OF EXAM: 12/20/2021 CLINICAL HISTORY: pain TECHNIQUE: Three views of the right knee are obtained. COMPARISON: None. FINDINGS: There is no acute fracture/dislocation. The tri-compartment joint spaces appear moderatel y narrowed medially. 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 The overlying so ft tissue appears unremarkable. Vascular stents noted as well as vascular calcifications. IMPRESSION: There is no acute fracture or dislocation.ICD 10 NO FRACTURE, INITIAL EVALUATION
[2021-12-20] MEDS ORDERED: NALOXONE 0.4 MG/ML 1 ML VIAL IV PRN (14:39)
[2021-12-20] MEDS ORDERED: ACETAMINOPHEN TAB 325 MG TAB PO PRN (14:39)
[2021-12-20 16:18] LABS: Glucose,Whole Blood 141 mg/dL (70-110)
--- NOTE | 2021-12-20 17:33 | P.CNOR ---
History of Present Illness - [facility] Consult date: 12/20/21 Consult reason: other (Right knee cellulitis) History of present illness: The patient is an 81-year-old male who presented to the emergency department for evaluation of his right knee pain and swelling. He was at the wound care center for treatment of a chronic lower leg wound and they noticed his right knee was red and swollen. Upon examination in the emergency department the patient was found to have right knee cellulitis and was admitted for further evaluation and care. Upon exam this afternoon, the patient is very sleepy and unable to provide much history. No fever or chills have been reported. There is a low suspicion for septic arthritis according to the emergency physician. A knee aspiration was not attempted due to his overlying cellulitis to the knee, which is reasonable. He does have an elevated white count and mildly elevated CRP. 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, coronary artery disease with previous coronary stenting and previous myocardial infarction, [id number] diabetes mellitus type 2, peripheral neuropathy, peripheral vascular disease with previous stenting of the left lower extremity and previous vascular surgery in the right leg, frequent falls, previous history of sores in the lower extremity in the heels, chronic hypoxic respiratory failure maintained on oxygen at 3 L/m nasal cannula, restless leg syndrome, chronic back pain, abdominal wall hernia, bilateral cataracts, hyp erlipidemia, hypertension, diabetes mellitus, [place] Last Myocardial Infarction Date:: unknown History of Any Multi-Drug Resistant Organisms: None Reported Past Surgical History: Hernia Repair, Joint Replacement, Orthopedic Surgery Additional Past Surgical History / Comment(s): Cardiac catheterization with coronary stenting, back surgery, appendectomy, hernia repair, left total hip replacement, right shoulder replacement, right rotator cuff repair, TURP, left lower extremity angioplasty and stenting for peripheral vascular disease, previous colonoscopies Past Anesthesia/Blood Transfusion Reactions: No Reported Reaction Past Psychological History: Anxiety, Depression Additional Psychological History / Comment(s): Pt resides with his spouse. He drives little. He wears oxygen at 3L/NC ATC. Smoking Status: Current every day smoker Past Alcohol Use History: None Reported Past Drug Use History: None Reported - Past Family History Father Family Medical History: Myocardial Infarction (CT) Additional Family Medical History / Comment(s): Father of a CT at the age of 62 yrs. Mother Additional Family Medical History / Comment(s): Mother was a heavy smoker. Medications and Allergies Home Medications Medication Instructions Recorded Confirmed Type Albuterol Nebulized [Ventolin 2.5 mg INHALATION RT-QID 07/27/17 12/20/21 History Nebulized] Apixaban [Eliquis] 5 mg PO BID 07/27/17 12/20/21 History DULoxetine HCL [Cymbalta] 60 mg PO HS 07/27/17 12/20/21 History Fenofibrate Nanocrystallized 145 mg PO DAILY 07/27/17 12/20/21 History [Tricor] Fluticasone/Vilanterol [Breo 1 puff INHALATION RT-DAILY 07/27/17 12/20/21 History Ellipta 200-25 Mcg Inhaler] Furosemide [Lasix] 20 mg PO DAILY 07/27/17 12/20/21 History Tiotropium [place] [Spiriva] 1 cap INHALATION RT-DAILY 07/27/17 12/20/21 History atenoloL [Tenormin] 25 mg PO DAILY 07/27/17 12/20/21 History dilTIAZem HCL [Diltiazem HCl] 15 mg PO Q8H 07/27/17 12/20/21 History lisinopriL [Zestril] 2.5 mg PO DAILY 07/27/17 12/20/21 History metFORMIN HCL [Glucophage] 1,000 mg PO BID 07/27/17 12/20/21 History rOPINIRole HCL [Requip] 0.25 mg PO HS 07/27/17 12/20/21 History busPIRone HCl [Buspar] 5 mg PO BID 03/18/19 12/20/21 History sitaGLIPtin [Januvia] 100 mg PO HS 03/18/19 12/20/21 History Albuterol Sulfate [Albuterol 1 - 2 puff INHALATION RT-Q4H PRN 02/12/21 12/20/21 History Sulfate Hfa] Atorvastatin [Lipitor] 40 mg PO DAILY 02/12/21 12/20/21 History Clopidogrel [Plavix] 75 mg PO HS 02/12/21 12/20/21 History Gabapentin [Neurontin] 400 mg PO BID@0900,1700 02/12/21 12/20/21 History Morphine Sulfate ER [Ms Contin] 30 mg PO BID 02/12/21 12/20/21 History Multivit-Min/FA/Lycopen/Lutein 1 tab PO DAILY 02/12/21 12/20/21 History [Centrum Silver Men Tablet] Vitamin C 125mg Gummy 125 mg PO DAILY 02/12/21 12/20/21 History Famotidine [Pepcid] 20 mg PO BID #30 tab 02/18/21 12/20/21 Rx Isosorbide Mononitrate ER [Imdur] 60 mg PO DAILY 12/20/21 12/20/21 History Allergies Allergy/AdvReac Type Severity Reaction Status Date / Time Penicillins Allergy Rash/Hives Verified 12/20/21 16:14 Physical Examination The patient is an 81-year-old male in no acute distress. He is oriented 3 but easily falls asleep during exam. Exam of the right knee reveals erythema and warmth to the anterior knee. The area has been marked with a skin marker and does seem to have some slight improvement since IV antibiotics as started. There is a dressing to the lower anterior leg that is covering a very mild wound at this time. No drainage present. There are no open areas to the knee. No large effusion present. No fluctuance noted. The is pain to palpation of the knee, which appears superficial. He has some pain on range of motion of the knee. Calf is soft and mildly tender. Neurological and circulatory status is intact. The patient is able to wiggle his toes. Results X-rays of the right knee reveal tricompartmental osteoarthritis. No acute fractures seen. - Labs Labs: Abnormal Lab Results - Last 24 Hours (Table) 12/20/21 12/20/21 12/20/21 Range/Units 13:03 13:03 16:16 WBC 16.4 H (3.8-10.6) k/uL RBC 4.09 L (4.30-5.90) m/uL Hgb 12.7 L (13.0-17.5) gm/dL Neutrophils # 13.9 H (1.3-7.7) k/uL Sodium 136 L (137-145) mmol/L Chloride 97 L (98-107) mmol/L BUN 38 H (9-20) mg/dL Creatinine 1.35 H (0.66-1.25) mg/dL Glucose 153 H (74-99) mg/dL POC Glucose (mg/dL) 141 H (70-110) mg/dL C-Reactive Protein 4.5 H (<1.0) mg/dL H & H 12/20/21 Range/Units 13:03 Hgb 12.7 L (13.0-17.5) gm/dL Hct 39.3 (39.0-53.0) % Result Diagrams: 12/20/21 13:03 12/20/21 13:03 Assessment and Plan (1) Cellulitis of right knee Current Visit: Yes Status: Acute Code(s): L03.115 - CELLULITIS OF RIGHT LOWER LIMB SNOMED Code(s): 72870679775843462 Plan: The clinical and x-ray findings were discussed with the patient and nursing staff. The case was discussed at length with Dr. Burgos. There is a low suspicion for septic arthritis but we will continue to follow patient closely. Continue IV antibiotics. A knee aspiration will be performed if his pain or cellulitis does not improve over the next 24 hours.continue pain control as needed. We will continue to follow patient closely and make further recommendations as needed.
[2021-12-20] MEDS: SODIUM CHLORIDE 0.9% 1,000 ML IV SCH (18:20)
[2021-12-20] MEDS ORDERED: ALBUTEROL HFA INHALER INHALATION PRN (18:21)
[2021-12-20] MEDS: DILTIAZEM ORAL 30 MG TAB PO SCH (20:00)
[2021-12-20] MEDS: APIXABAN 5 MG TAB PO SCH (20:03)
[2021-12-20] MEDS: LINAGLIPTIN 5 MG TABLET PO SCH (20:03)
[2021-12-20] MEDS: metFORMIN 500 MG TAB PO SCH (20:03)
[2021-12-20] MEDS: busPIRone HCl 5 MG TAB PO SCH (20:03)
[2021-12-20] MEDS: FAMOTIDINE 20 MG TAB PO SCH (20:03)
[2021-12-20] MEDS: DULoxetine HCL 60 MG CAPSULE.DR PO SCH (20:03)
[2021-12-20] MEDS: CLOPIDOGREL 75 MG TAB PO SCH (20:03)
[2021-12-20] MEDS: ALBUTEROL NEBULIZED 2.5 MG/3 ML INHALATION SCH (20:20)
[2021-12-20 20:59] LABS: Glucose,Whole Blood 174 mg/dL (70-110)
[2021-12-20] MEDS: INSULIN ASPART (NovoLOG) 100 UNIT/ML VIAL SQ SCH (21:19)
[2021-12-20] MEDS: MORPHINE SULFATE ER 30 MG TABLET PO SCH (21:24)
[2021-12-21] MEDS: DILTIAZEM ORAL 30 MG TAB PO SCH ×3 (02:40→20:52)
[2021-12-21] MEDS: SODIUM CHLORIDE 0.9% 1,000 ML IV SCH ×2 (02:41→07:20)
[2021-12-21 04:44] LABS: Glucose,Whole Blood 223 mg/dL (70-110)
[2021-12-21 05:57] LABS: African American GFR (CKD) 74 (>60 ml/min/1.73 sqM); Anion Gap 12 mmol/L; Blood Urea Nitrogen 26 mg/dL (9-20); Calcium 8.9 mg/dL (8.4-10.2); Carbon Dioxide 21 mmol/L (22-30); Chloride 104 mmol/L (98-107); Glucose 208 mg/dL (74-99); Non-African American GFR(CKD) 64 (>60 ml/min/1.73 sqM); Sodium 137 mmol/L (137-145)
[2021-12-21] MEDS ORDERED: MORPHINE SULFATE IR 15 MG TABLET PO ONE (05:58)
[2021-12-21 06:43] LABS: Glucose,Whole Blood 207 mg/dL (70-110)
[2021-12-21] MEDS: MORPHINE SULFATE ER 30 MG TABLET PO SCH ×2 (08:14→20:49)
[2021-12-21] MEDS: ALBUTEROL NEBULIZED 2.5 MG/3 ML INHALATION SCH ×4 (08:22→20:19)
[2021-12-21] MEDS: TIOTROPIUM BROMIDE 18 MCG INHALATION SCH (08:25)
[2021-12-21] MEDS: APIXABAN 5 MG TAB PO SCH ×2 (08:27→20:50)
[2021-12-21] MEDS: FUROSEMIDE 20 MG TAB PO SCH (08:27)
[2021-12-21] MEDS: GABAPENTIN 400 MG CAP PO SCH ×2 (08:27→17:04)
[2021-12-21] MEDS: metFORMIN 500 MG TAB PO SCH ×2 (08:27→20:51)
[2021-12-21] MEDS: ATORVASTATIN 40 MG TAB PO SCH (08:27)
[2021-12-21] MEDS: INSULIN ASPART (NovoLOG) 100 UNIT/ML VIAL SQ SCH ×4 (08:27→20:48)
[2021-12-21] MEDS: busPIRone HCl 5 MG TAB PO SCH ×2 (08:27→20:50)
[2021-12-21] MEDS: atenoloL 25 MG TAB PO SCH (08:27)
[2021-12-21] MEDS: ISOSORBIDE MONONITRATE ER 60 MG TAB.ER.24H PO SCH (08:27)
[2021-12-21] MEDS: ASCORBIC ACID 500 MG TAB PO SCH (08:28)
[2021-12-21] MEDS: FAMOTIDINE 20 MG TAB PO SCH ×2 (08:28→20:50)
--- NOTE | 2021-12-21 09:00 | P.PN ---
Subjective Progress Note Date: 12/21/21 Principal diagnosis: Right knee cellulitis The patient is an 81-year-old male who presented to the emergency department for evaluation of his right knee pain and swelling. He was at the wound care center for treatment of a chronic lower leg wound and they noticed his right knee was red and swollen. Upon examination in the emergency department the patient was found to have right knee cellulitis and was admitted for further evaluation and care. Upon exam this afternoon, the patient is very sleepy and unable to provide much history. No fever or chills have been reported. There is a low suspicion for septic arthritis according to the emergency physician. A knee aspiration was not attempted due to his overlying cellulitis to the knee, which is reasonable. He does have an elevated white count and mildly elevated CRP. Today, the patient states he is very itchy. He states the pain is better in the knee. Nursing staff said that he has not had his regular MS Contin since admission and thinks he might be withdrawing. The MS Contin has been resumed. No new complaints. Objective - Vital Signs Vital signs: Vital Signs Temp 97.1 F L 12/21/21 07:42 Pulse 76 12/21/21 08:33 Resp 20 12/21/21 07:42 BP 120/67 12/21/21 07:42 Pulse Ox 95 12/21/21 08:25 FiO2 Intake & Output 12/20/21 12/21/21 12/21/21 18:59 06:59 18:59 Intake Total 0 Output Total 400 Balance 0 -400 Weight 90.718 kg Intake: Oral 0 Output: Urine 400 Other: Voiding Method Urinal - Exam The patient is an 81-year-old male in no acute distress. He is oriented 2 and seems agitated today. Exam of the right knee reveals improved erythema and warmth to the anterior knee. The area has been marked with a skin marker and does seem to have some improvement since IV antibiotics as started and the redness isn't as bright. There is a dressing to the lower anterior leg that is covering a very mild wound at this time. No drainage present. There are no open areas to the knee. No large effusion present. No fluctuance noted. There is improved pain to palpation of the knee, which appears superficial still. He has some pain on range of motion of the knee. Calf is soft and mildly tender. Neurological and circulatory status is intact. The patient is able to wiggle his toes. - Labs CBC & Chem 7: 12/21/21 05:04 12/21/21 05:04 Labs: Abnormal Lab Results - Last 24 Hours (Table) 12/20/21 12/20/21 12/20/21 Range/Units 13:03 13:03 16:16 WBC 16.4 H (3.8-10.6) k/uL RBC 4.09 L (4.30-5.90) m/uL Hgb 12.7 L (13.0-17.5) gm/dL Neutrophils # 13.9 H (1.3-7.7) k/uL Sodium 136 L (137-145) mmol/L Chloride 97 L (98-107) mmol/L Carbon Dioxide (22-30) mmol/L BUN 38 H (9-20) mg/dL Creatinine 1.35 H (0.66-1.25) mg/dL Glucose 153 H (74-99) mg/dL POC Glucose (mg/dL) 141 H (70-110) mg/dL C-Reactive Protein 4.5 H (<1.0) mg/dL 12/20/21 12/21/21 12/21/21 Range/Units 20:58 04:42 05:04 WBC (3.8-10.6) k/uL RBC (4.30-5.90) m/uL Hgb (13.0-17.5) gm/dL Neutrophils # (1.3-7.7) k/uL Sodium (137-145) mmol/L Chloride (98-107) mmol/L Carbon Dioxide 21 L (22-30) mmol/L BUN 26 H (9-20) mg/dL Creatinine (0.66-1.25) mg/dL Glucose 208 H (74-99) mg/dL POC Glucose (mg/dL) 174 H 223 H (70-110) mg/dL C-Reactive Protein (<1.0) mg/dL 12/21/21 Range/Units 06:42 WBC (3.8-10.6) k/uL RBC (4.30-5.90) m/uL Hgb (13.0-17.5) gm/dL Neutrophils # (1.3-7.7) k/uL Sodium (137-145) mmol/L Chloride (98-107) mmol/L Carbon Dioxide (22-30) mmol/L BUN (9-20) mg/dL Creatinine (0.66-1.25) mg/dL Glucose (74-99) mg/dL POC Glucose (mg/dL) 207 H (70-110) mg/dL C-Reactive Protein (<1.0) mg/dL Assessment and Plan (1) Cellulitis of right knee Current Visit: Yes Status: Acute Code(s): L03.115 - CELLULITIS OF RIGHT LOWER LIMB SNOMED Code(s): [id number] Plan: The clinical and x-ray findings were discussed with the patient and nursing staff. The case was discussed at length with Dr. Burgos. There is a low suspicion for septic arthritis but we will continue to follow patient closely. Continue IV antibiotics. A knee aspiration will be performed if his pain or cellulitis does not continue improve over the next 24 hours. Continue pain control as needed. We will continue to follow patient closely and make further recommendations as needed.
[2021-12-21 09:02] LABS: Basophils # (A) 0.04 X 10*3/uL (0.00-0.10); Basophils % (A) 0.2 %; Eosinophils # (A) 0 X 10*3/uL (0.04-0.35); Eosinophils % (A) 0 %; HCT 35.1 % (39.6-50.0); HGB 11.3 g/dL (13.0-17.0); Immature Grans, Automated 0.7 %; Lymphocytes # (A) 0.82 X 10*3/uL (0.90-5.00); Lymphocytes % (A) 4.7 %; MCH 31.5 pg (27.0-32.0); MCHC 32.2 g/dL (32.0-37.0); MCV 97.8 fL (80.0-97.0); Mean Platelet Volume 11.8 fL (9.5-12.2); Monocytes # (A) 1.11 X 10*3/uL (0.20-1.00); Monocytes % (A) 6.3 %; NRBC Per 100 WBC 0 /100 WBCS (0.0-0.0); Neutrophils # (A) 15.42 X 10*3/uL (1.80-7.70); Neutrophils % (A) 88.1 %; Platelet Count 252 X 10*3/uL (140-440); RBC 3.59 X 10*6/uL (4.40-5.60); RDW 13.2 % (11.5-14.5); WBC 17.51 X 10*3/uL (4.50-10.00)
[2021-12-21] MEDS: VANCOMYCIN 1,750 MG in SODIUM CHLORIDE 0.9% 500 ML 500 ML IVPB SCH (10:21)
--- NOTE | 2021-12-21 10:40 | P.HPIM ---
History of Present Illness H&P Date: 12/20/21 Chief Complaint: Right knee infection Patient is a 81-year-old male with a known history of paroxysmal atrial fibrillation on anticoagulation with thin liquids, COPD on home oxygen at 3 L with nasal cannula, hypertension, hyponatremia, diabetes type 2, coronary artery disease with history of stent placement, peripheral vascular disease and stenting of the left lower extremity, history of frequent falls, anxiety/depression currently everyday smoker and other multiple medical problems presents to ER with complaints of right knee swelling and redness over the past 3-4 days. Patient also related the wound care center for chronic wound on the right lower extremity and recommended to go to ER. Patient otherwise denied any complaints of fever or chills. No nausea vomiting abdominal pain or diarrhea. Patient does have baseline shortness of breath. No chest pain. No cough or sputum production. X-ray of the left knee showed there is no acute fracture or dislocation. Review of Systems Constitutional: Patient denies any fever or chills . No generalized weakness or weight loss. Abdomen: Patient denied nausea vomiting and diarrhea and abdominal pain. Cardiovascular: Patient denies any chest pain or short of breath no palpitations. Respiratory: patient denied any cough is from production. No shortness of breath Neurologic: Patient denied any numbness or tingling headache. Musculoskeletal: Patient denies any complaints of joint swelling or deformity. Right knee swelling Skin: Negative Psychiatric: Negative Endocrine: No heat or cold intolerance. No recent weight gain. Genitourinary: No dysuria or hematuria. 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, coronary artery disease with previous coronary stenting and previous myocardial infarction, [id number] diabetes mellitus type 2, peripheral neuropathy, peripheral vascular disease with previous stenting of the left lower extremity and previous vascular surgery in the right leg, frequent falls, previous history of sores in the lower extremity in the heels, chronic hypoxic respiratory failure maintained on oxygen at 3 L/m nasal cannula, restless leg syndrome, chronic back pain, abdominal wall hernia, bilateral cataracts, hyperlipidemia, hypertension, diabetes mellitus, [place] Last Myocardial Infarction Date:: unknown History of Any Multi-Drug Resistant Organisms: None Reported Past Surgical History: Hernia Repair, Joint Replacement, Orthopedic Surgery Additional Past Surgical History / Comment(s): Cardiac catheterization with coronary stenting, back surgery, appendectomy, hernia repair, left total hip replacement, right shoulder replacement, right rotator cuff repair, TURP, left lower extremity angioplasty and stenting for peripheral vascular disease, previous colonoscopies Past Anesthesia/Blood Transfusion Reactions: No Reported Reaction Past Psychological History: Anxiety, Depression Additional Psychological History / Comment(s): Pt resides with his spouse. He drives little. He wears oxygen at 3L/NC ATC. Smoking Status: Current every day smoker Past Alcohol Use History: None Reported Past Drug Use History: None Reported - Past Family History Father Family Medical History: Myocardial Infarction ([place]) Additional Family Medical History / Comment(s): Father of a [place] at the age of 62 yrs. Mother Additional Family Medical History / Comment(s): Mother was a heavy smoker. Medications and Allergies Home Medications Medication Instructions Recorded Confirmed Type Albuterol Nebulized [Ventolin 2.5 mg INHALATION RT-QID 07/27/17 12/20/21 History Nebulized] Apixaban [Eliquis] 5 mg PO BID 07/27/17 12/20/21 History DULoxetine HCL [Cymbalta] 60 mg PO HS 07/27/17 12/20/21 History Fenofibrate Nanocrystallized 145 mg PO DAILY 07/27/17 12/20/21 History [Tricor] Fluticasone/Vilanterol [Breo 1 puff INHALATION RT-DAILY 07/27/17 12/20/21 History Ellipta 200-25 Mcg Inhaler] Furosemide [Lasix] 20 mg PO DAILY 07/27/17 12/20/21 History Tiotropium [place] [Spiriva] 1 cap INHALATION RT-DAILY 07/27/17 12/20/21 History atenoloL [Tenormin] 25 mg PO DAILY 07/27/17 12/20/21 History dilTIAZem HCL [Diltiazem HCl] 15 mg PO Q8H 07/27/17 12/20/21 History lisinopriL [Zestril] 2.5 mg PO DAILY 07/27/17 12/20/21 History metFORMIN HCL [Glucophage] 1,000 mg PO BID 07/27/17 12/20/21 History rOPINIRole HCL [Requip] 0.25 mg PO HS 07/27/17 12/20/21 History busPIRone HCl [Buspar] 5 mg PO BID 03/18/19 12/20/21 History sitaGLIPtin [Januvia] 100 mg PO HS 03/18/19 12/20/21 History Albuterol Sulfate [Albuterol 1 - 2 puff INHALATION RT-Q4H PRN 02/12/21 12/20/21 History Sulfate Hfa] Atorvastatin [Lipitor] 40 mg PO DAILY 02/12/21 12/20/21 History Clopidogrel [Plavix] 75 mg PO HS 02/12/21 12/20/21 History Gabapentin [Neurontin] 400 mg PO BID@0900,1700 02/12/21 12/20/21 History Morphine Sulfate ER [Ms Contin] 30 mg PO BID 02/12/21 12/20/21 History Multivit-Min/FA/Lycopen/Lutein 1 tab PO DAILY 02/12/21 12/20/21 History [Centrum Silver Men Tablet] Vitamin C 125mg Gummy 125 mg PO DAILY 02/12/21 12/20/21 History Famotidine [Pepcid] 20 mg PO BID #30 tab 02/18/21 12/20/21 Rx Isosorbide Mononitrate ER [Imdur] 60 mg PO DAILY 12/20/21 12/20/21 History Allergies Allergy/AdvReac Type Severity Reaction Status Date / Time Penicillins Allergy Rash/Hives Verified 12/20/21 16:14 Physical Exam Vitals: Vital Signs Temp Pulse Pulse Resp BP BP Pulse Ox 12/20/21 20:34 95 12/20/21 20:22 84 95 12/20/21 19:46 100.0 F H 73 16 167/75 90 L 12/20/21 15:44 98.5 F 78 20 135/70 95 12/20/21 15:10 86 18 115/85 92 L 12/20/21 14:26 98 F 83 18 126/67 83 L 12/20/21 12:23 97.6 F 68 20 128/72 88 L 12/20/21 12:09 97.9 F 86 18 124/69 90 L Intake and Output 12/20/21 12/20/21 12/20/21 06:59 14:59 22:59 Intake Total 0 Balance 0 Intake: Oral 0 Other: Weight 90.718 kg 90.718 kg PHYSICAL EXAMINATION: Patient is lying in the bed comfortably, no acute distress, awake alert and oriented but lethargic and drowsy.. HEENT: Normocephalic. Neck is supple. Pupils reactive. Nostrils clear. Oral cavity is moist. Neck reveals no JVD, carotid bruits, or thyromegaly. CHEST EXAMINATION: Trachea is central. Symmetrical expansion. Bilateral expiratory wheezing. No rhonchi or crackles. Nonlabored breathing.. CARDIAC: Normal S1, S2 with no gallops. No murmurs ABDOMEN: Soft. Bowel sounds normal. No organomegaly. No abdominal bruits. Extremities: reveal no edema. No clubbing or cyanosis Neurologically awake, alert, oriented 2-3 with well-coordinated movements. No gross focal deficits noted Skin: No rash or skin lesions. Psychiatric: Coperative. Could not be assessed completely. Musculoskeletal: No joint swelling or deformity. Normal range of motion. Results CBC & Chem 7: 12/21/21 05:04 12/21/21 05:04 Labs: Abnormal Lab Results - Last 24 Hours (Table) 12/20/21 12/20/21 12/20/21 Range/Units 13:03 13:03 16:16 WBC 16.4 H (3.8-10.6) k/uL RBC 4.09 L (4.30-5.90) m/uL Hgb 12.7 L (13.0-17.5) gm/dL Neutrophils # 13.9 H (1.3-7.7) k/uL Sodium 136 L (137-145) mmol/L Chloride 97 L (98-107) mmol/L BUN 38 H (9-20) mg/dL Creatinine 1.35 H (0.66-1.25) mg/dL Glucose 153 H (74-99) mg/dL POC Glucose (mg/dL) 141 H (70-110) mg/dL C-Reactive Protein 4.5 H (<1.0) mg/dL 12/20/21 Range/Units 20:58 WBC (3.8-10.6) k/uL RBC (4.30-5.90) m/uL Hgb (13.0-17.5) gm/dL Neutrophils # (1.3-7.7) k/uL Sodium (137-145) mmol/L Chloride (98-107) mmol/L BUN (9-20) mg/dL Creatinine (0.66-1.25) mg/dL Glucose (74-99) mg/dL POC Glucose (mg/dL) 174 H (70-110) mg/dL C-Reactive Protein (<1.0) mg/dL Thrombosis Risk Factor Assmnt - DVT/VTE Prophylaxis DVT/VTE Prophylaxis: Pharmacologic Prophylaxis ordered - Choose All That Apply Each Factor Represents 1 point: Obesity (BMI >25), Swollen legs (current) Each Risk Factor Represents 3 Points: Age 75 years or older Thrombosis Risk Factor Assessment Total Risk Factor Score: 5 Thrombosis Risk Factor Assessment Level: High Risk Assessment and Plan Assessment: Cellulitis over the right knee. Unlikely septic arthritis. Chronic wound on the right lower extremity and is on follow-up with own care clinic. Acute kidney injury likely prerenal. Paroxysmal atrial fibrillation on anticonvulsant lesions COPD on home oxygen at 3 L with another cannula Chronic hypoxic respiratory failure secondary to above Coronary artery disease status post and placement Diabetes type 2 nausea and dependent Hypertension Hyperlipidemia Peripheral vascular disease with history of left lower extremity stent placement Anxiety/depression Current every day smoker Chronic pain syndrome DVT prophylaxis with patient regarding implantable ablation Plan: Patient will be continued on pain management and antibiotics of vancomycin. Monitor renal function closely. Orthopedic surgery was consulted for possible septic arthritis/pre-patellar bursitis. Continue the warm compresses. Patient will be continued on DuoNeb's and oxygen supplementation and monitor respiratory status closely. IV hydration and follow-up renal function. Continue with home medications and care discussed with the patient and his at bedside in detail. Prognosis guarded with multiple medical problems and comorbid conditions. Time with Patient: Greater than 30
[2021-12-21 11:10] VITALS: BMI 27.1
[2021-12-21 11:24] LABS: Glucose,Whole Blood 139 mg/dL (70-110)
[2021-12-21] MEDS ORDERED: VANCOMYCIN 1,750 MG in SODIUM CHLORIDE 0.9% 500 ML 500 ML IVPB SCH (12:00)
[2021-12-21 16:23] LABS: Glucose,Whole Blood 194 mg/dL (70-110)
[2021-12-21 20:35] LABS: Glucose,Whole Blood 176 mg/dL (70-110)
[2021-12-21] MEDS: LINAGLIPTIN 5 MG TABLET PO SCH (20:51)
[2021-12-21] MEDS: CLOPIDOGREL 75 MG TAB PO SCH (20:51)
[2021-12-21] MEDS: DULoxetine HCL 60 MG CAPSULE.DR PO SCH (20:51)
[2021-12-22] MEDS: VANCOMYCIN 1,750 MG in SODIUM CHLORIDE 0.9% 500 ML 500 ML IVPB SCH (02:02)
[2021-12-22] MEDS: DILTIAZEM ORAL 30 MG TAB PO SCH ×2 (02:56→11:37)
[2021-12-22 06:47] LABS: Glucose,Whole Blood 157 mg/dL (70-110)
[2021-12-22] MEDS: ISOSORBIDE MONONITRATE ER 60 MG TAB.ER.24H PO SCH (08:17)
[2021-12-22] MEDS: atenoloL 25 MG TAB PO SCH (08:17)
[2021-12-22] MEDS: metFORMIN 500 MG TAB PO SCH (08:17)
[2021-12-22] MEDS: MORPHINE SULFATE ER 30 MG TABLET PO SCH (08:17)
[2021-12-22] MEDS: ASCORBIC ACID 500 MG TAB PO SCH (08:18)
[2021-12-22] MEDS: APIXABAN 5 MG TAB PO SCH (08:18)
[2021-12-22] MEDS: GABAPENTIN 400 MG CAP PO SCH (08:18)
[2021-12-22] MEDS: INSULIN ASPART (NovoLOG) 100 UNIT/ML VIAL SQ SCH ×2 (08:18→11:34)
[2021-12-22] MEDS: FUROSEMIDE 20 MG TAB PO SCH (08:18)
[2021-12-22] MEDS: ATORVASTATIN 40 MG TAB PO SCH (08:18)
[2021-12-22] MEDS: FAMOTIDINE 20 MG TAB PO SCH (08:18)
[2021-12-22] MEDS: busPIRone HCl 5 MG TAB PO SCH (08:18)
[2021-12-22] MEDS: ALBUTEROL NEBULIZED 2.5 MG/3 ML INHALATION SCH ×2 (08:37→12:07)
[2021-12-22] MEDS: TIOTROPIUM BROMIDE 18 MCG INHALATION SCH (08:38)
[2021-12-22 08:53] VITALS: BP 114/55; RESP 16; TEMP 98.6
[2021-12-22 09:29] LABS: Basophils # (A) 0.05 X 10*3/uL (0.00-0.10); Basophils % (A) 0.4 %; Eosinophils # (A) 0.13 X 10*3/uL (0.04-0.35); HCT 31.5 % (39.6-50.0); HGB 9.8 g/dL (13.0-17.0); Immature Grans, Automated 0.5 %; Lymphocytes # (A) 1.27 X 10*3/uL (0.90-5.00); Lymphocytes % (A) 10.1 %; MCH 30.9 pg (27.0-32.0); MCHC 31.1 g/dL (32.0-37.0); MCV 99.4 fL (80.0-97.0); Mean Platelet Volume 11.5 fL (9.5-12.2); Monocytes % (A) 7.2 %; NRBC Per 100 WBC 0 /100 WBCS (0.0-0.0); Neutrophils # (A) 10.15 X 10*3/uL (1.80-7.70); Neutrophils % (A) 80.8 %; Platelet Count 235 X 10*3/uL (140-440); RBC 3.17 X 10*6/uL (4.40-5.60); RDW 13.2 % (11.5-14.5); WBC 12.56 X 10*3/uL (4.50-10.00)
[2021-12-22 10:39] LABS: African American GFR (CKD) 64.2 (60.0-200.0); Blood Urea Nitrogen 23.6 mg/dL (9.0-27.0); Calcium 8.4 mg/dL (8.7-10.3); Carbon Dioxide 26.1 mmol/L (20.0-27.5); Chloride 106 mmol/L (96-109); Glucose 124 mg/dL (70-110); Non-African American GFR(CKD) 55.4 (60.0-200.0); Potassium 4.1 mmol/L (3.5-5.5); Sodium 141 mmol/L (135-145)
--- NOTE | 2021-12-22 11:14 | P.PN ---
Subjective Progress Note Date: 12/22/21 Principal diagnosis: Right knee cellulitis The patient is an 81-year-old male who presented to the emergency department for evaluation of his right knee pain and swelling. He was at the wound care center for treatment of a chronic lower leg wound and they noticed his right knee was red and swollen. Upon examination in the emergency department the patient was found to have right knee cellulitis and was admitted for further evaluation and care. Upon exam this afternoon, the patient is very sleepy and unable to provide much history. No fever or chills have been reported. There is a low suspicion for septic arthritis according to the emergency physician. A knee aspiration was not attempted due to his overlying cellulitis to the knee, which is reasonable. He does have an elevated white count and mildly elevated CRP. 12/21/21: The patient states he is very itchy. He states the pain is better in the knee. Nursing staff said that he has not had his regular MS Contin since admission and thinks he might be withdrawing. The MS Contin has been resumed. No new complaints. 12/22/2021: The patient appears more alert today. He denies right knee pain and is able to bear weight without much pain. No new complaints today. Objective - Vital Signs Vital signs: Vital Signs Temp 98.6 F 12/22/21 08:00 Pulse 94 12/22/21 08:52 Resp 16 12/22/21 08:00 BP 114/55 12/22/21 08:00 Pulse Ox 94 L 12/22/21 08:40 FiO2 Intake & Output 12/21/21 12/22/21 12/22/21 18:59 06:59 18:59 Weight 90.718 kg Other: # Voids 2 1 - Exam The patient is an 81-year-old male in no acute distress. He is oriented 2 and seems agitated today. Exam of the right knee reveals very minimal erythema and warmth to the anterior knee. The area has been marked with a skin marker and does seem to have much improvement since IV antibiotics as started and the redness isn't as bright. There is a dressing to the lower anterior leg that is covering a very mild wound at this time. No drainage present. There are no open areas to the knee. No large effusion present. No fluctuance noted. There is no pain to palpation of the knee. He has no pain on range of motion of the knee today. Calf is soft and nontender. Neurological and circulatory status is intact. The patient is able to wiggle his toes. - Labs CBC & Chem 7: 12/22/21 03:44 12/22/21 03:44 Labs: Abnormal Lab Results - Last 24 Hours (Table) 12/21/21 12/21/21 12/21/21 Range/Units 11:21 16:21 20:32 WBC (4.50-10.00) X 10*3/uL RBC (4.40-5.60) X 10*6/uL Hgb (13.0-17.0) g/dL Hct (39.6-50.0) % MCV (80.0-97.0) fL MCHC (32.0-37.0) g/dL Immature Gran # (0.00-0.04) X 10*3/uL Neutrophils # (1.80-7.70) X 10*3/uL Anion Gap (10.00-18.00) mmol/L Est GFR (CKD-EPI)NonAf (60.0-200.0) Glucose (70-110) mg/dL POC Glucose (mg/dL) 139 H 194 H 176 H (70-110) mg/dL Calcium (8.7-10.3) mg/dL 12/22/21 12/22/21 12/22/21 Range/Units 03:44 03:44 06:45 WBC 12.56 H (4.50-10.00) X 10*3/uL RBC 3.17 L (4.40-5.60) X 10*6/uL Hgb 9.8 L (13.0-17.0) g/dL Hct 31.5 L (39.6-50.0) % MCV 99.4 H (80.0-97.0) fL MCHC 31.1 L (32.0-37.0) g/dL Immature Gran # 0.06 H (0.00-0.04) X 10*3/uL Neutrophils # 10.15 H (1.80-7.70) X 10*3/uL Anion Gap 8.40 L (10.00-18.00) mmol/L Est GFR (CKD-EPI)NonAf 55.4 L (60.0-200.0) Glucose 124 H (70-110) mg/dL POC Glucose (mg/dL) 157 H (70-110) mg/dL Calcium 8.4 L (8.7-10.3) mg/dL Microbiology - Last 24 Hours (Table) 12/20/21 13:03 Blood Culture - Preliminary Blood No Growth after 24 hours Assessment and Plan (1) Cellulitis of right knee Current Visit: Yes Status: Acute Code(s): L03.115 - CELLULITIS OF RIGHT LOWER LIMB SNOMED Code(s): [id number] Plan: The clinical and x-ray findings were discussed with the patient and nursing staff. The case was discussed at length with Dr. Burgos. There is a low suspicion for septic arthritis and appears to be superficial. Continue IV antibiotics and likely transition to oral antibiotics per internal medicine. A knee aspiration will be performed if his pain or cellulitis does not continue to improve. Continue pain control as needed. We will continue to follow patient peripherally if he remains in the hospital.
[2021-12-22 11:31] LABS: Glucose,Whole Blood 123 mg/dL (70-110)
[2021-12-22 12:20] VITALS: PULSE 82
[2021-12-23] MEDS ORDERED: VANCOMYCIN TROUGH DUE 1 EACH MISC MISCELLANE ONE (09:00)
== END 2021-12-22 15:28 | disposition home or self-care (01) | DRG 603 ==
LOC: EC 11:42 → 4SSUR 14:39
PROVIDERS: ADMIT Internal Medicine; ATTEND Internal Medicine
DX: L03.115 Cellulitis of right lower limb (principal); J96.11 Chronic respiratory failure with hypoxia; N17.9 Acute kidney failure, unspecified; I11.0 Hypertensive heart disease with heart failure; I25.10 Atherosclerotic heart disease of native coronary artery without angina pectoris; I48.0 Paroxysmal atrial fibrillation; I50.9 Heart failure, unspecified; J44.9 Chronic obstructive pulmonary disease, unspecified; E11.42 Type 2 diabetes mellitus with diabetic polyneuropathy; E11.51 Type 2 diabetes mellitus with diabetic peripheral angiopathy without gangrene; E78.5 Hyperlipidemia, unspecified; F17.210 Nicotine dependence, cigarettes, uncomplicated; F32.A Depression, unspecified; F41.9 Anxiety disorder, unspecified; R29.6 Repeated falls; G25.81 Restless legs syndrome; G89.4 Chronic pain syndrome; I25.2 Old myocardial infarction; Z79.01 Long term (current) use of anticoagulants; Z79.4 Long term (current) use of insulin; Z79.84 Long term (current) use of oral hypoglycemic drugs; Z79.899 Other long term (current) drug therapy; Z91.81 History of falling; Z95.5 Presence of coronary angioplasty implant and graft; Z95.820 Peripheral vascular angioplasty status with implants and grafts; Z96.611 Presence of right artificial shoulder joint; Z99.81 Dependence on supplemental oxygen; Z87.19 Personal history of other diseases of the digestive system; Z88.0 Allergy status to penicillin; Z98.42 Cataract extraction status, left eye; Z98.41 Cataract extraction status, right eye; Z96.642 Presence of left artificial hip joint
CPT/HCPCS: 36415; 80048; 80053; 83605; 84443; 85025; 86140; 87040; 94640; 94760; 96365; 99285